=== PATIENT | male | born 1955 | race Hispanic/Latino ===

== ENCOUNTER 2019-05-17 10:07 | Emergency (ER) | payer OTHER ==
[2019-05-17 10:42] LABS: BASOPHILS % (AUTO) 0.3 % (0.0-5.0); EOSINOPHILS % (AUTO) 0.4 % (0.0-8.0); HEMATOCRIT 44.1 % (42-54); LYMPHOCYTES % (AUTO) 13.1 % (21.0-51.0); MEAN CORPUSCULAR HEMOGLOBIN 32.2 pg (27.0-33.0); MEAN CORPUSCULAR HGB CONC 34.9 g/dL (32.0-36.0); MEAN CORPUSCULAR VOLUME 92.3 fL (79-99); MONOCYTES % (AUTO) 4.1 % (3.0-13.0); NEUTROPHILS % (AUTO) 82.1 % (40.0-77.0); NUCLEATED RED BLOOD CELLS 0.1 % (0.0-0.19); PLATELET COUNT (AUTO) 207 K/uL (130-400); RED BLOOD CELL COUNT(AUTO) 4.78 MIL/uL (4.50-6.20); RED CELL DISTRIBUTION WIDTH 13.2 % (11.0-15.5); WHITE BLOOD COUNT (AUTO) 10.9 K/uL (4.8-10.8)
[2019-05-17] MEDS ORDERED: DiphenhydrAMINE HCL 50 MG/ML VIAL ONE (10:42)
[2019-05-17] MEDS ORDERED: DEXAMETHASONE SOD PHOSPHATE 10MG/ML 1ML VIAL ONE (10:43)
[2019-05-17] MEDS ORDERED: FAMOTIDINE/PF 20 MG/2 ML VIAL IV ONE (10:43)
[2019-05-17 10:51] LABS: POTASSIUM 4.3 mmol/L (3.5-5.1)
[2019-05-17 10:56] LABS: ALBUMIN 3.3 g/dL (3.5-5.0); BILIRUBIN,TOTAL 0.6 mg/dL (0.2-1.0); TOTAL PROTEIN, SERUM 6.3 g/dL (6.0-8.3)
== END 2019-05-17 13:04 | disposition home or self-care (01) ==
LOC: EDH 10:07
DX: T63.441A Toxic effect of venom of bees, accidental (unintentional), initial encounter (principal); T78.40XA Allergy, unspecified, initial encounter; Y92.89 Other specified places as the place of occurrence of the external cause
CPT/HCPCS: 36415; 80053; 85025; 96374; 96375; 99284; J1100; J1200; J3490

== ENCOUNTER 2020-11-04 10:45 | Inpatient (IN) | payer OTHER ==
[~2020-11-04] VITALS: Ht 177.8 cm; Wt 77.1 kg
[2020-11-04 11:16] LABS: BASOPHILS % (AUTO) 0.5 % (0.0-5.0); EOSINOPHILS % (AUTO) 2.6 % (0.0-8.0); HEMATOCRIT 39.8 % (42-54); LYMPHOCYTES % (AUTO) 18.6 % (21.0-51.0); MEAN CORPUSCULAR HEMOGLOBIN 25.2 pg (27.0-33.0); MEAN CORPUSCULAR HGB CONC 31.4 g/dL (32.0-36.0); MEAN CORPUSCULAR VOLUME 80.2 fL (79-99); MONOCYTES % (AUTO) 8.1 % (3.0-13.0); NEUTROPHILS % (AUTO) 69.9 % (40.0-77.0); PLATELET COUNT (AUTO) 281 K/uL (130-400); RED BLOOD CELL COUNT(AUTO) 4.96 MIL/uL (4.50-6.20); RED CELL DISTRIBUTION WIDTH 17.4 % (11.0-15.5); WHITE BLOOD COUNT (AUTO) 9.2 K/uL (4.8-10.8)
[2020-11-04 11:34] LABS: ALBUMIN 3.4 g/dL (3.5-5.0); BILIRUBIN,TOTAL 0.6 mg/dL (0.2-1.0)
[2020-11-04 12:11] LABS: INR 1.07 (0.85-1.15); PROTHROMBIN TIME 11.6 SEC (9.6-11.6)
[2020-11-04 12:12] LABS: PARTIAL THROMBOPLASTIN TIME 28.9 SEC (26.3-35.5)
[2020-11-04] MEDS ORDERED: ONDANSETRON 4MG INJ IVP PRN (14:30)
[2020-11-04] MEDS ORDERED: GLUCAGON 1MG KIT 1 MG ML IM PRN (17:15)
[2020-11-04] MEDS ORDERED: DEXTROSE 50%-WATER 50 ML DISP.SYRIN IV PRN (17:15)
[2020-11-04] MEDS: ZOSYN 3.375GM+NS 50ML 50 ML IV SCH (17:15)
[2020-11-04 17:27] LABS: APPEARANCE,URINE Clear (CLEAR); BILIRUBIN,URINE Negative (NEGATIVE); COLOR,URINE Yellow (YELLOW); GLUCOSE, URINE (UA) >=1000 mg/dL (NEGATIVE); KETONES,URINE Trace mg/dL (NEGATIVE); LEUKOCYTE ESTERASE ,URINE Negative (NEGATIVE); NITRATE,URINE Negative (NEGATIVE); OCCULT BLOOD,URINE Negative (NEGATIVE); PH,URINE 6.5 (5.0-8.0); PROTEIN,URINE Trace mg/dL (NEGATIVE)
[2020-11-04 17:56] LABS: BACTERIA,URINE None Seen /HPF (None Seen); SQUAMOUS EPITHELIAL CELL,UR 0-2 /HPF (0-2); WBC,URINE 0-1 /HPF (0-1)
[2020-11-04 17:58] LABS: BASOPHILS % (AUTO) 0.6 % (0.0-5.0); EOSINOPHILS % (AUTO) 3.9 % (0.0-8.0); HEMATOCRIT 38.9 % (42-54); LYMPHOCYTES % (AUTO) 24.5 % (21.0-51.0); MEAN CORPUSCULAR HEMOGLOBIN 25.2 pg (27.0-33.0); MEAN CORPUSCULAR HGB CONC 31.4 g/dL (32.0-36.0); MEAN CORPUSCULAR VOLUME 80.2 fL (79-99); MONOCYTES % (AUTO) 11.2 % (3.0-13.0); NEUTROPHILS % (AUTO) 59.5 % (40.0-77.0); PLATELET COUNT (AUTO) 268 K/uL (130-400); RED BLOOD CELL COUNT(AUTO) 4.85 MIL/uL (4.50-6.20); RED CELL DISTRIBUTION WIDTH 17.2 % (11.0-15.5); WHITE BLOOD COUNT (AUTO) 7.2 K/uL (4.8-10.8)
[2020-11-04 18:06] LABS: INR 1.09 (0.85-1.15); PROTHROMBIN TIME 11.8 SEC (9.6-11.6)
[2020-11-04 18:07] LABS: PARTIAL THROMBOPLASTIN TIME 29.3 SEC (26.3-35.5)
[2020-11-04] MEDS ORDERED: ZOSYN 3.375GM+NS 50ML 50 ML IV ONE (19:11)
[2020-11-04] MEDS ORDERED: HEPARIN 25,000 UNITS/250ML D5W 250 ML IV ONE (21:34)
[2020-11-04] MEDS ORDERED: HEPARIN 5,000 UNIT VIAL ONE (21:46)
[2020-11-05] VITALS: BP 115/66
[2020-11-05] MEDS: FAMOTIDINE 20MG TAB PO SCH ×3 (00:11→20:45)
[2020-11-05] MEDS: INSULIN HUMULIN R 100 UNIT/ML 3ML SQ SCH ×6 (00:15→20:55)
[2020-11-05] MEDS: ZOSYN 3.375GM+NS 50ML 50 ML IV SCH ×3 (01:09→18:05)
[2020-11-05 04:00] VITALS: BP 113/66
[2020-11-05 04:17] LABS: BASOPHILS % (AUTO) 0.6 % (0.0-5.0); EOSINOPHILS % (AUTO) 4.2 % (0.0-8.0); HEMATOCRIT 37.3 % (42-54); LYMPHOCYTES % (AUTO) 26.3 % (21.0-51.0); MEAN CORPUSCULAR HEMOGLOBIN 25.2 pg (27.0-33.0); MEAN CORPUSCULAR HGB CONC 31.6 g/dL (32.0-36.0); MEAN CORPUSCULAR VOLUME 79.5 fL (79-99); MONOCYTES % (AUTO) 11.2 % (3.0-13.0); NEUTROPHILS % (AUTO) 57.4 % (40.0-77.0); PLATELET COUNT (AUTO) 262 K/uL (130-400); RED BLOOD CELL COUNT(AUTO) 4.69 MIL/uL (4.50-6.20); RED CELL DISTRIBUTION WIDTH 17.3 % (11.0-15.5); WHITE BLOOD COUNT (AUTO) 7.8 K/uL (4.8-10.8)
[2020-11-05] MEDS ORDERED: METO-408 PO (04:24)
[2020-11-05] MEDS ORDERED: LISI2.5T13 PO (04:33)
[2020-11-05] MEDS ORDERED: GLIP10TA9 PO (04:33)
[2020-11-05] MEDS ORDERED: FAMO20TA8 PO (04:33)
[2020-11-05] MEDS ORDERED: AMIO100T4 PO (04:33)
[2020-11-05] MEDS ORDERED: FURO20TA4 PO (04:33)
[2020-11-05] MEDS ORDERED: METF-446 PO (04:33)
[2020-11-05] MEDS ORDERED: EMPA25TA PO (04:33)
[2020-11-05] MEDS ORDERED: ATOR40TA71 PO (04:33)
[2020-11-05] MEDS ORDERED: ASPI-1026 PO (04:33)
[2020-11-05] MEDS ORDERED: ASCO500T20 PO (04:33)
[2020-11-05 04:35] LABS: INR 1.1 (0.85-1.15); PROTHROMBIN TIME 11.9 SEC (9.6-11.6)
[2020-11-05 04:36] LABS: PARTIAL THROMBOPLASTIN TIME 71.2 SEC (26.3-35.5)
[2020-11-05 09:04] VITALS: BP 119/61
[2020-11-05] MEDS: ASPIRIN 325MG EC TAB PO SCH (10:18)
[2020-11-05 11:50] LABS: INR 1.07 (0.85-1.15); PROTHROMBIN TIME 11.6 SEC (9.6-11.6)
[2020-11-05 13:06] VITALS: BP 123/67
[2020-11-05] MEDS: HEPARIN 25,000 UNITS/250ML D5W 250 ML IV SCH ×2 (16:44→18:05)
[2020-11-05 17:48] VITALS: BP 112/65
[2020-11-05 20:00] VITALS: BP 96/43
[2020-11-06] VITALS (8 sets, daily range): BP systolic 96–120; BP diastolic 54–73
[2020-11-06 00:21] LABS: INR 1.07 (0.85-1.15); PROTHROMBIN TIME 11.6 SEC (9.6-11.6)
[2020-11-06 00:22] LABS: PARTIAL THROMBOPLASTIN TIME 56.3 SEC (26.3-35.5)
[2020-11-06] MEDS: ZOSYN 3.375GM+NS 50ML 50 ML IV SCH ×3 (01:27→16:36)
[2020-11-06 06:55] LABS: INR 1.08 (0.85-1.15); PROTHROMBIN TIME 11.7 SEC (9.6-11.6)
[2020-11-06 06:57] LABS: PARTIAL THROMBOPLASTIN TIME 66.5 SEC (26.3-35.5)
[2020-11-06] MEDS: INSULIN HUMULIN R 100 UNIT/ML 3ML SQ SCH ×4 (07:30→21:00)
[2020-11-06] MEDS: FAMOTIDINE 20MG TAB PO SCH ×2 (08:43→22:32)
[2020-11-06] MEDS: ASPIRIN 325MG EC TAB PO SCH (08:44)
[2020-11-06] MEDS: 0.9%NACL 1000ML 1,000 ML IV SCH ×2 (12:25→22:29)
[2020-11-06] MEDS: HEPARIN 25,000 UNITS/250ML D5W 250 ML IV SCH (13:01)
[2020-11-07 04:30] VITALS: BP 129/66
[2020-11-07 04:51] LABS: BASOPHILS % (AUTO) 0.4 % (0.0-5.0); EOSINOPHILS % (AUTO) 3.5 % (0.0-8.0); LYMPHOCYTES % (AUTO) 24.9 % (21.0-51.0); MEAN CORPUSCULAR HEMOGLOBIN 24.7 pg (27.0-33.0); MEAN CORPUSCULAR HGB CONC 31.7 g/dL (32.0-36.0); MEAN CORPUSCULAR VOLUME 77.8 fL (79-99); MONOCYTES % (AUTO) 10.6 % (3.0-13.0); NEUTROPHILS % (AUTO) 60.2 % (40.0-77.0); PLATELET COUNT (AUTO) 269 K/uL (130-400); RED CELL DISTRIBUTION WIDTH 16.8 % (11.0-15.5); WHITE BLOOD COUNT (AUTO) 7.6 K/uL (4.8-10.8)
[2020-11-07 05:08] LABS: CREATININE 0.9 mg/dL (0.5-1.5); POTASSIUM 4.4 mmol/L (3.5-5.1)
[2020-11-07 05:09] LABS: HEMOGLOBIN A1C 9.5 % (4.0-6.0)
[2020-11-07 05:27] LABS: INR 1.08 (0.85-1.15); PROTHROMBIN TIME 11.7 SEC (9.6-11.6)
[2020-11-07 05:29] LABS: PARTIAL THROMBOPLASTIN TIME 49.1 SEC (26.3-35.5)
[2020-11-07] MEDS: INSULIN HUMULIN R 100 UNIT/ML 3ML SQ SCH ×4 (07:30→22:58)
[2020-11-07] MEDS: ZOSYN 3.375GM+NS 50ML 50 ML IV SCH ×3 (07:54→18:12)
[2020-11-07] MEDS ORDERED: SODIUM BICARB 50MEQ 50ML VIAL 50 ML ONE (08:02)
[2020-11-07] MEDS ORDERED: HEPARIN 10,000 UNIT/10ML (1,000 UNIT/ML) VIAL ONE (08:02)
[2020-11-07] MEDS ORDERED: IODIXANOL 320 MG/ML 100 ML VIAL ONE ×2 (08:03→09:25)
[2020-11-07] MEDS ORDERED: LIDOCAINE HCL 400MG/20ML VIAL ONE (08:03)
[2020-11-07 08:39] VITALS: BP 138/65
[2020-11-07] MEDS ORDERED: NITROGLYCERIN 2 MG VIAL IV ONE (09:11)
[2020-11-07] MEDS ORDERED: FENTANYL CITRATE PF 50 MCG/1 ML 2ML VIAL ONE (09:11)
[2020-11-07] MEDS ORDERED: MIDAZOLAM HCL 1 MG/ML 2ML VIAL ONE (09:11)
[2020-11-07] MEDS ORDERED: PRASUGREL HCL 10 MG TABLET ONE (10:09)
[2020-11-07] MEDS ORDERED: 0.9%NACL 1000ML 1,000 ML IV SCH (11:15)
[2020-11-07] MEDS: 0.9%NACL 1000ML 1,000 ML IV SCH ×2 (12:11→16:00)
[2020-11-07] MEDS: FAMOTIDINE 20MG TAB PO SCH ×2 (12:28→22:51)
[2020-11-07] MEDS: MORPHINE 4 MG SYG IV PRN ×2 (12:40→18:12)
[2020-11-07] MEDS: LISINOPRIL 2.5 MG TABLET PO SCH (16:15)
[2020-11-07 16:30] VITALS: BP 100/65
[2020-11-07] MEDS ORDERED: ATORVASTATIN 40 MG TABLET PO SCH (17:00)
[2020-11-07] MEDS: GLIPIZIDE 5 MG TABLET PO SCH (17:00)
[2020-11-07] MEDS: AMIODARONE 200 MG TABLET PO SCH (18:12)
[2020-11-07] MEDS ORDERED: ASPIRIN 81MG CHEW TAB PO SCH (18:15)
[2020-11-07 19:00] VITALS: BP 129/71
[2020-11-07] MEDS: ACETAMINOPHEN 325 MG TAB PO PRN (22:52)
[2020-11-07] MEDS: METOPROLOL SUCCINATE 50 MG TAB.SR.24H PO SCH (22:52)
[2020-11-08 00:11] VITALS: BP 113/58
[2020-11-08] MEDS: ZOSYN 3.375GM+NS 50ML 50 ML IV SCH ×2 (02:09→09:34)
[2020-11-08] MEDS: 0.9%NACL 1000ML 1,000 ML IV SCH ×2 (02:09→12:00)
[2020-11-08 04:00] VITALS: BP 110/64
[2020-11-08 05:47] LABS: BASOPHILS % (AUTO) 0.3 % (0.0-5.0); EOSINOPHILS % (AUTO) 3.8 % (0.0-8.0); LYMPHOCYTES % (AUTO) 20.3 % (21.0-51.0); MEAN CORPUSCULAR HEMOGLOBIN 25.6 pg (27.0-33.0); MEAN CORPUSCULAR HGB CONC 31.8 g/dL (32.0-36.0); MEAN CORPUSCULAR VOLUME 80.6 fL (79-99); MONOCYTES % (AUTO) 13.6 % (3.0-13.0); NEUTROPHILS % (AUTO) 61.6 % (40.0-77.0); PLATELET COUNT (AUTO) 246 K/uL (130-400); RED BLOOD CELL COUNT(AUTO) 4.22 MIL/uL (4.50-6.20); WHITE BLOOD COUNT (AUTO) 7.7 K/uL (4.8-10.8)
[2020-11-08 05:54] LABS: POTASSIUM 3.7 mmol/L (3.5-5.1)
[2020-11-08] MEDS: INSULIN HUMULIN R 100 UNIT/ML 3ML SQ SCH ×2 (07:03→11:30)
[2020-11-08 08:00] VITALS: BP 100/54
[2020-11-08] MEDS: FAMOTIDINE 20MG TAB PO SCH (08:47)
[2020-11-08] MEDS: GLIPIZIDE 5 MG TABLET PO SCH (08:48)
[2020-11-08] MEDS: AMIODARONE 200 MG TABLET PO SCH (08:51)
[2020-11-08] MEDS ORDERED: ASPIRIN 81MG CHEW TAB PO SCH (09:00)
[2020-11-08] MEDS ORDERED: PRASUGREL HCL 10 MG TABLET PO SCH (09:00)
[2020-11-08] MEDS ORDERED: ASCORBIC ACID 500 MG TAB PO SCH (09:00)
[2020-11-08] MEDS: LISINOPRIL 2.5 MG TABLET PO SCH (09:00)
[2020-11-08] MEDS ORDERED: EMPAGLIFLOZIN 25 MG PO SCH (09:00)
[2020-11-08] MEDS ORDERED: FUROSEMIDE 20 MG TABLET PO SCH (09:00)
[2020-11-08] MEDS: METOPROLOL SUCCINATE 50 MG TAB.SR.24H PO SCH (09:55)
[2020-11-08 12:00] VITALS: BP 120/63
[2020-11-08] MEDS ORDERED: PRAS10TA6 PO (15:05)
[2020-11-08] MEDS ORDERED: ASPI-1197 PO (15:05)
[2020-11-08] MEDS: ACETAMINOPHEN 325 MG TAB PO PRN (15:06)
[2021-01-14] MEDS ORDERED: METO25TA6 PO (15:40)
[2021-01-14] MEDS ORDERED: ATOR-2 PO (15:43)
[2021-01-14] MEDS ORDERED: AMIO200T68 PO (15:43)
[2021-01-14] MEDS ORDERED: INSU100V12 SQ (15:43)
[2021-01-14] MEDS ORDERED: FURO40TA5 PO (15:43)
[2021-02-10] MEDS ORDERED: FURO40TA5 PO (16:48)
[2021-02-10] MEDS ORDERED: FAMO20TA8 PO (16:48)
[2021-02-10] MEDS ORDERED: GLIP10TA9 PO (16:48)
[2021-02-10] MEDS ORDERED: METO25TA6 PO (16:48)
[2021-02-10] MEDS ORDERED: PRAS10TA9 PO (16:48)
[2021-02-10] MEDS ORDERED: FLUT15.845 NS (16:48)
[2021-02-10] MEDS ORDERED: LISI2.5T13 PO (16:48)
[2021-02-10] MEDS ORDERED: AEC81 PO (16:48)
[2021-02-10] MEDS ORDERED: ASCO100031 PO (16:48)
[2021-02-10] MEDS ORDERED: ATOR40TA69 PO (16:48)
[2021-02-10] MEDS ORDERED: INSU100V12 SQ (16:48)
[2021-02-10] MEDS ORDERED: EMPA25TA PO (16:48)
[2021-02-10] MEDS ORDERED: METF-446 PO (16:48)
[2021-02-10] MEDS ORDERED: ALBUTEROL INHALER (16:48)
[2021-02-10] MEDS ORDERED: AMIO200T68 PO (16:48)
[2021-04-10] MEDS ORDERED: METF-446 PO (14:20)
[2021-04-10] MEDS ORDERED: INSU100V12 SQ (14:20)
== END 2020-11-08 16:00 | disposition home or self-care (01) | DRG 271 ==
LOC: EDH 10:45 → EDHIP 14:17 → 4BH 22:07
PROVIDERS: ADMIT Family Medicine; ATTEND Family Medicine
PROC: 04CL3ZZ Extirpation of Matter from Left Femoral Artery, Percutaneous Approach (ICD-10-PCS; principal; 2020-11-07)
PROC: 04FL3ZZ Fragmentation of Left Femoral Artery, Percutaneous Approach (ICD-10-PCS; 2020-11-07)
PROC: B41G1ZZ Fluoroscopy of Left Lower Extremity Arteries using Low Osmolar Contrast (ICD-10-PCS; 2020-11-07)
DX: E11.52 Type 2 diabetes mellitus with diabetic peripheral angiopathy with gangrene (principal); I70.262 Atherosclerosis of native arteries of extremities with gangrene, left leg; I50.22 Chronic systolic (congestive) heart failure; I96 Gangrene, not elsewhere classified; E11.65 Type 2 diabetes mellitus with hyperglycemia; D63.8 Anemia in other chronic diseases classified elsewhere; E11.42 Type 2 diabetes mellitus with diabetic polyneuropathy; I25.10 Atherosclerotic heart disease of native coronary artery without angina pectoris; M77.32 Calcaneal spur, left foot; L97.529 Non-pressure chronic ulcer of other part of left foot with unspecified severity; L50.9 Urticaria, unspecified; E78.5 Hyperlipidemia, unspecified; I25.5 Ischemic cardiomyopathy; E11.621 Type 2 diabetes mellitus with foot ulcer; E11.36 Type 2 diabetes mellitus with diabetic cataract; H26.9 Unspecified cataract; I65.29 Occlusion and stenosis of unspecified carotid artery; M48.00 Spinal stenosis, site unspecified; N52.9 Male erectile dysfunction, unspecified; R70.0 Elevated erythrocyte sedimentation rate; R79.82 Elevated C-reactive protein (CRP); I99.8 Other disorder of circulatory system; F17.200 Nicotine dependence, unspecified, uncomplicated; Z95.1 Presence of aortocoronary bypass graft; Z86.74 Personal history of sudden cardiac arrest; Z86.010 Personal history of colon polyps; Z20.822 Contact with and (suspected) exposure to COVID-19
CPT/HCPCS: 36415; 73620; 75710; 75716; 80048; 80053; 81001; 82550; 82948; 83036; 83605; 84145; 85025; 85347; 85610; 85651; 85730; 86140; 87040; 87426; 93925; 99156; 99157; C1769; C1893; C1894; C9764; G0378; J1644; J1815; J2250; J2270; J2543; J3010; J3490; J7030; Q9967; U0003

== ENCOUNTER 2020-11-10 15:49 | Inpatient (IN) | payer OTHER ==
[~2020-11-10] VITALS: Ht 175.3 cm; Wt 76.7 kg
[~2020-11-10 15:49] MED LIST: AMIO100T4 PO; ASCO500T20 PO; ASPI-1197 PO; ATOR40TA71 PO; EMPA25TA PO; FAMO20TA8 PO; FURO20TA4 PO; GLIP10TA9 PO; LISI2.5T13 PO; METF-446 PO; METO-408 PO; PRAS10TA6 PO
[2020-11-10 16:32] LABS: BASOPHILS % (AUTO) 0.3 % (0.0-5.0); EOSINOPHILS % (AUTO) 1.6 % (0.0-8.0); HEMATOCRIT 33.7 % (42-54); LYMPHOCYTES % (AUTO) 14.9 % (21.0-51.0); MEAN CORPUSCULAR HEMOGLOBIN 25.6 pg (27.0-33.0); MEAN CORPUSCULAR HGB CONC 31.5 g/dL (32.0-36.0); MEAN CORPUSCULAR VOLUME 81.4 fL (79-99); MONOCYTES % (AUTO) 7.8 % (3.0-13.0); NEUTROPHILS % (AUTO) 75.3 % (40.0-77.0); PLATELET COUNT (AUTO) 291 K/uL (130-400); RED BLOOD CELL COUNT(AUTO) 4.14 MIL/uL (4.50-6.20); RED CELL DISTRIBUTION WIDTH 17.2 % (11.0-15.5); WHITE BLOOD COUNT (AUTO) 9.2 K/uL (4.8-10.8)
[2020-11-10 16:43] LABS: CREATININE 1.2 mg/dL (0.5-1.5); POTASSIUM 3.7 mmol/L (3.5-5.1)
[2020-11-10 16:48] LABS: ALBUMIN 3.1 g/dL (3.5-5.0); BILIRUBIN,TOTAL 0.3 mg/dL (0.2-1.0); TOTAL PROTEIN, SERUM 7.6 g/dL (6.0-8.3)
[2020-11-10 17:11] LABS: INR 1.08 (0.85-1.15); PROTHROMBIN TIME 11.7 SEC (9.6-11.6)
[2020-11-10 17:12] LABS: PARTIAL THROMBOPLASTIN TIME 29.1 SEC (26.3-35.5)
[2020-11-10 17:27] LABS: APPEARANCE,URINE Clear (CLEAR); BILIRUBIN,URINE Negative (NEGATIVE); COLOR,URINE Yellow (YELLOW); GLUCOSE, URINE (UA) >=1000 mg/dL (NEGATIVE); KETONES,URINE Negative (NEGATIVE); LEUKOCYTE ESTERASE ,URINE Negative (NEGATIVE); NITRATE,URINE Negative (NEGATIVE); OCCULT BLOOD,URINE Negative (NEGATIVE); PH,URINE 5.5 (5.0-8.0); PROTEIN,URINE Negative (NEGATIVE); UROBILINOGEN,URINE 0.2 mg/dL (0.2-1.0)
[2020-11-10 17:28] LABS: B-TYPE NATRIURETIC PEPTIDE 790 pg/mL (0-100)
[2020-11-10 17:35] LABS: AMPHET/METH SCREEN,URINE NEGATIVE (NEGATIVE); BARBITURATE SCREEN, URINE NEGATIVE (NEGATIVE); BENZODIAZEPINES SCREEN,URINE NEGATIVE (NEGATIVE); CANNABINOID SCREEN,URINE NEGATIVE (NEGATIVE); COCAINE SCREEN,URINE NEGATIVE (NEGATIVE); OPIATE SCREEN,URINE NEGATIVE (NEGATIVE); PHENCYCLIDINE SCREEN,URINE NEGATIVE (NEGATIVE)
[2020-11-10 17:39] LABS: CRP QUANTITATIVE 116.7 mg/L (0.00-9.0)
[2020-11-10 17:57] LABS: BACTERIA,URINE Rare /HPF (None Seen); RBC,URINE 0-1 /HPF (0-1); SQUAMOUS EPITHELIAL CELL,UR Rare /HPF (0-2); WBC,URINE 0-1 /HPF (0-1)
[2020-11-10 17:59] LABS: ERYTHROCYTE SEDIMENTATION RATE 73 MM/HR (0-20)
[2020-11-10] MEDS ORDERED: ACETAMINOPHEN WITH CODEINE 1 TAB TAB PO PRN (19:15)
[2020-11-10] MEDS ORDERED: LACTULOSE 20 GM/30 ML UDCUP PO PRN (19:15)
[2020-11-10] MEDS ORDERED: ACETAMINOPHEN 325 MG TAB PO PRN (19:15)
[2020-11-10] MEDS ORDERED: ONDANSETRON 4MG INJ IV PRN (19:15)
[2020-11-10 19:34] LABS: RETICULOCYTE % (AUTO) 1.41 % (0.42-2.23)
[2020-11-10 19:56] LABS: % IRON SATURATION 5.3 % (30-44)
[2020-11-10 20:01] LABS: HEMOGLOBIN A1C 10.2 % (4.0-6.0)
[2020-11-10 20:49] LABS: BASOPHILS % (AUTO) 0.5 % (0.0-5.0); EOSINOPHILS % (AUTO) 2.9 % (0.0-8.0); HEMATOCRIT 33.6 % (42-54); LYMPHOCYTES % (AUTO) 18.6 % (21.0-51.0); MEAN CORPUSCULAR HEMOGLOBIN 25.7 pg (27.0-33.0); MEAN CORPUSCULAR HGB CONC 31.8 g/dL (32.0-36.0); MEAN CORPUSCULAR VOLUME 80.8 fL (79-99); MONOCYTES % (AUTO) 10.4 % (3.0-13.0); NEUTROPHILS % (AUTO) 67.4 % (40.0-77.0); PLATELET COUNT (AUTO) 290 K/uL (130-400); RED BLOOD CELL COUNT(AUTO) 4.16 MIL/uL (4.50-6.20); RED CELL DISTRIBUTION WIDTH 17.2 % (11.0-15.5); WHITE BLOOD COUNT (AUTO) 8.7 K/uL (4.8-10.8)
[2020-11-10] MEDS: INSULIN GLARGINE 100 UNITS/ML 10 ML VIAL SQ SCH (21:00)
[2020-11-10] MEDS: ATORVASTATIN 40 MG TABLET PO SCH (21:00)
[2020-11-10] MEDS: METOPROLOL SUCCINATE 50 MG TAB.SR.24H PO SCH (21:00)
[2020-11-10] MEDS: FAMOTIDINE 20MG TAB PO SCH (21:00)
[2020-11-10] MEDS: INSULIN HUMULIN R 100 UNIT/ML 3ML SQ SCH (21:00)
[2020-11-10] MEDS ORDERED: ATORVASTATIN 40 MG TABLET ONE (21:28)
[2020-11-10] MEDS ORDERED: FAMOTIDINE 20MG TAB ONE (21:58)
[2020-11-10] MEDS ORDERED: HEPARIN 5,000 UNIT VIAL ONE (21:59)
[2020-11-10] MEDS ORDERED: INSULIN HUMULIN R 100 UNIT/ML 3ML ONE (22:18)
[2020-11-10 22:28] VITALS: BP 128/45
[2020-11-11] MEDS: ACETAMINOPHEN 325 MG TAB PO PRN ×4 (03:47→21:24)
[2020-11-11 04:00] VITALS: BP 117/58
[2020-11-11 05:24] LABS: BASOPHILS % (AUTO) 0.5 % (0.0-5.0); EOSINOPHILS % (AUTO) 3.2 % (0.0-8.0); HEMATOCRIT 29.7 % (42-54); LYMPHOCYTES % (AUTO) 24.8 % (21.0-51.0); MEAN CORPUSCULAR HEMOGLOBIN 25.5 pg (27.0-33.0); MEAN CORPUSCULAR VOLUME 79.6 fL (79-99); MONOCYTES % (AUTO) 10.4 % (3.0-13.0); NEUTROPHILS % (AUTO) 60.8 % (40.0-77.0); PLATELET COUNT (AUTO) 270 K/uL (130-400); RED BLOOD CELL COUNT(AUTO) 3.73 MIL/uL (4.50-6.20); RED CELL DISTRIBUTION WIDTH 17.1 % (11.0-15.5); WHITE BLOOD COUNT (AUTO) 7.8 K/uL (4.8-10.8)
[2020-11-11] MEDS: INSULIN HUMULIN R 100 UNIT/ML 3ML SQ SCH ×4 (05:53→20:26)
[2020-11-11 08:00] VITALS: BP 87/54
[2020-11-11] MEDS: FAMOTIDINE 20MG TAB PO SCH ×2 (08:54→20:26)
[2020-11-11] MEDS: ASPIRIN 81MG CHEW TAB PO SCH (08:54)
[2020-11-11] MEDS: PRASUGREL HCL 10 MG TABLET PO SCH (08:54)
[2020-11-11] MEDS: ASCORBIC ACID 500 MG TAB PO SCH (08:55)
[2020-11-11] MEDS: LISINOPRIL 2.5 MG TABLET PO SCH (09:00)
[2020-11-11] MEDS: FUROSEMIDE 20 MG TABLET PO SCH (09:00)
[2020-11-11] MEDS: AMIODARONE 200 MG TABLET PO SCH (09:00)
[2020-11-11] MEDS: METOPROLOL SUCCINATE 50 MG TAB.SR.24H PO SCH ×2 (09:00→20:25)
[2020-11-11] MEDS ORDERED: ENOXAPARIN SODIUM 40 MG/0.4 ML SYRINGE SQ SCH (09:00)
[2020-11-11 12:00] VITALS: BP 108/61
[2020-11-11 16:00] VITALS: BP 115/58
[2020-11-11] MEDS ORDERED: HEPARIN 5,000 UNIT VIAL ONE (17:53)
[2020-11-11] MEDS: HEPARIN 25,000 UNITS/250ML D5W 250 ML IV SCH (18:04)
[2020-11-11 20:00] VITALS: BP 124/67
[2020-11-11] MEDS: ATORVASTATIN 40 MG TABLET PO SCH (20:26)
[2020-11-11] MEDS: INSULIN GLARGINE 100 UNITS/ML 10 ML VIAL SQ SCH (20:27)
[2020-11-11 23:54] VITALS: BP 118/61
[2020-11-12] MEDS ORDERED: HEPARIN 5,000 UNIT VIAL ONE (00:51)
[2020-11-12 04:00] VITALS: BP 129/67
[2020-11-12] MEDS: ACETAMINOPHEN 325 MG TAB PO PRN (04:13)
[2020-11-12] MEDS: INSULIN HUMULIN R 100 UNIT/ML 3ML SQ SCH ×4 (05:54→20:50)
[2020-11-12 07:00] VITALS: BP 123/59
[2020-11-12] MEDS: LISINOPRIL 2.5 MG TABLET PO SCH (09:35)
[2020-11-12] MEDS: AMIODARONE 200 MG TABLET PO SCH (09:35)
[2020-11-12] MEDS: ASPIRIN 81MG CHEW TAB PO SCH (09:35)
[2020-11-12] MEDS: METOPROLOL SUCCINATE 50 MG TAB.SR.24H PO SCH ×2 (09:36→20:42)
[2020-11-12] MEDS: ASCORBIC ACID 500 MG TAB PO SCH (09:36)
[2020-11-12] MEDS: FAMOTIDINE 20MG TAB PO SCH ×2 (09:36→20:41)
[2020-11-12] MEDS: FUROSEMIDE 20 MG TABLET PO SCH (09:36)
[2020-11-12] MEDS: PRASUGREL HCL 10 MG TABLET PO SCH (09:36)
[2020-11-12 11:30] VITALS: BP 112/61
[2020-11-12] MEDS: ACETAMINOPHEN WITH CODEINE 1 TAB TAB PO PRN ×2 (11:31→20:41)
[2020-11-12 16:00] VITALS: BP 90/50
[2020-11-12] MEDS: HEPARIN 25,000 UNITS/250ML D5W 250 ML IV SCH ×2 (18:30→20:23)
[2020-11-12 20:00] VITALS: BP 107/55
[2020-11-12] MEDS: ATORVASTATIN 40 MG TABLET PO SCH (20:41)
[2020-11-12] MEDS: INSULIN GLARGINE 100 UNITS/ML 10 ML VIAL SQ SCH (20:49)
[2020-11-12 23:51] VITALS: BP 102/53
[2020-11-13 04:45] VITALS: BP 97/47
[2020-11-13] MEDS: INSULIN HUMULIN R 100 UNIT/ML 3ML SQ SCH ×4 (06:08→20:04)
[2020-11-13 07:00] VITALS: BP 99/52
[2020-11-13] MEDS: ASPIRIN 81MG CHEW TAB PO SCH (08:47)
[2020-11-13] MEDS: METOPROLOL SUCCINATE 50 MG TAB.SR.24H PO SCH ×2 (08:48→20:00)
[2020-11-13] MEDS: FUROSEMIDE 20 MG TABLET PO SCH (08:48)
[2020-11-13] MEDS: PRASUGREL HCL 10 MG TABLET PO SCH (08:48)
[2020-11-13] MEDS: AMIODARONE 200 MG TABLET PO SCH (08:48)
[2020-11-13] MEDS: LISINOPRIL 2.5 MG TABLET PO SCH (08:48)
[2020-11-13] MEDS: FAMOTIDINE 20MG TAB PO SCH ×2 (08:48→20:00)
[2020-11-13] MEDS: ASCORBIC ACID 500 MG TAB PO SCH (08:49)
[2020-11-13 11:30] VITALS: BP 101/56
[2020-11-13] MEDS ORDERED: SODIUM BICARB 50MEQ 50ML VIAL 50 ML ONE (15:39)
[2020-11-13] MEDS ORDERED: HEPARIN 10,000 UNIT/10ML (1,000 UNIT/ML) VIAL ONE (15:39)
[2020-11-13] MEDS ORDERED: FENTANYL CITRATE PF 50 MCG/1 ML 2ML VIAL ONE (15:40)
[2020-11-13] MEDS ORDERED: MIDAZOLAM HCL 1 MG/ML 2ML VIAL ONE (15:40)
[2020-11-13] MEDS ORDERED: NITROGLYCERIN 2 MG VIAL IV ONE (15:40)
[2020-11-13] MEDS ORDERED: LIDOCAINE HCL 400MG/20ML VIAL ONE (15:40)
[2020-11-13] MEDS ORDERED: IODIXANOL 320 MG/ML 100 ML VIAL ONE (15:40)
[2020-11-13 16:00] VITALS: BP 111/59
[2020-11-13] MEDS ORDERED: 0.9%NACL 1000ML 1,000 ML IV SCH (18:00)
[2020-11-13 19:41] VITALS: BP 111/55
[2020-11-13] MEDS: ATORVASTATIN 40 MG TABLET PO SCH (20:00)
[2020-11-13] MEDS: INSULIN GLARGINE 100 UNITS/ML 10 ML VIAL SQ SCH (20:08)
[2020-11-14 00:15] VITALS: BP 130/60
[2020-11-14] MEDS: ACETAMINOPHEN WITH CODEINE 1 TAB TAB PO PRN ×2 (04:10→15:18)
[2020-11-14 04:27] VITALS: BP 116/57
[2020-11-14 05:11] LABS: BASOPHILS % (AUTO) 0.4 % (0.0-5.0); EOSINOPHILS % (AUTO) 2.6 % (0.0-8.0); HEMATOCRIT 28.9 % (42-54); LYMPHOCYTES % (AUTO) 18.4 % (21.0-51.0); MEAN CORPUSCULAR HEMOGLOBIN 25.8 pg (27.0-33.0); MEAN CORPUSCULAR HGB CONC 32.2 g/dL (32.0-36.0); MEAN CORPUSCULAR VOLUME 80.1 fL (79-99); MONOCYTES % (AUTO) 11.4 % (3.0-13.0); NEUTROPHILS % (AUTO) 67.1 % (40.0-77.0); PLATELET COUNT (AUTO) 267 K/uL (130-400); RED BLOOD CELL COUNT(AUTO) 3.61 MIL/uL (4.50-6.20); RED CELL DISTRIBUTION WIDTH 16.3 % (11.0-15.5); WHITE BLOOD COUNT (AUTO) 7.3 K/uL (4.8-10.8)
[2020-11-14 05:31] LABS: CREATININE 0.8 mg/dL (0.5-1.5)
[2020-11-14] MEDS: INSULIN HUMULIN R 100 UNIT/ML 3ML SQ SCH ×4 (06:02→20:51)
[2020-11-14 08:00] VITALS: BP 106/50
[2020-11-14] MEDS: ASPIRIN 81MG CHEW TAB PO SCH (09:18)
[2020-11-14] MEDS: PRASUGREL HCL 10 MG TABLET PO SCH (09:18)
[2020-11-14] MEDS: FUROSEMIDE 20 MG TABLET PO SCH (09:18)
[2020-11-14] MEDS: ASCORBIC ACID 500 MG TAB PO SCH (09:19)
[2020-11-14] MEDS: AMIODARONE 200 MG TABLET PO SCH (09:19)
[2020-11-14] MEDS: LISINOPRIL 2.5 MG TABLET PO SCH (09:19)
[2020-11-14] MEDS: FAMOTIDINE 20MG TAB PO SCH ×2 (09:19→19:55)
[2020-11-14] MEDS: METOPROLOL SUCCINATE 50 MG TAB.SR.24H PO SCH ×2 (09:19→19:55)
[2020-11-14 12:09] VITALS: BP 97/53
[2020-11-14 16:31] VITALS: BP 126/56
[2020-11-14 19:51] VITALS: BP 108/60
[2020-11-14] MEDS: ATORVASTATIN 40 MG TABLET PO SCH (19:55)
[2020-11-14] MEDS: ACETAMINOPHEN 325 MG TAB PO PRN (20:01)
[2020-11-14] MEDS: INSULIN GLARGINE 100 UNITS/ML 10 ML VIAL SQ SCH (20:52)
[2020-11-15] VITALS: BP 95/45
[2020-11-15 04:33] VITALS: BP 116/71
[2020-11-15] MEDS: INSULIN HUMULIN R 100 UNIT/ML 3ML SQ SCH ×4 (06:30→21:16)
[2020-11-15 08:00] VITALS: BP 123/50
[2020-11-15] MEDS: ASCORBIC ACID 500 MG TAB PO SCH (08:51)
[2020-11-15] MEDS: PRASUGREL HCL 10 MG TABLET PO SCH (08:51)
[2020-11-15] MEDS: ACETAMINOPHEN WITH CODEINE 1 TAB TAB PO PRN ×2 (08:51→21:14)
[2020-11-15] MEDS: AMIODARONE 200 MG TABLET PO SCH (08:51)
[2020-11-15] MEDS: ASPIRIN 81MG CHEW TAB PO SCH (08:51)
[2020-11-15] MEDS: METOPROLOL SUCCINATE 50 MG TAB.SR.24H PO SCH ×2 (08:51→20:59)
[2020-11-15] MEDS: LISINOPRIL 2.5 MG TABLET PO SCH (08:51)
[2020-11-15] MEDS: FAMOTIDINE 20MG TAB PO SCH ×2 (08:52→21:00)
[2020-11-15] MEDS: FUROSEMIDE 20 MG TABLET PO SCH (08:52)
[2020-11-15 12:00] VITALS: BP 112/62
[2020-11-15 16:00] VITALS: BP 109/56
[2020-11-15 20:08] VITALS: BP 115/60
[2020-11-15] MEDS: ATORVASTATIN 40 MG TABLET PO SCH (21:00)
[2020-11-15] MEDS: INSULIN GLARGINE 100 UNITS/ML 10 ML VIAL SQ SCH (21:15)
[2020-11-16] VITALS (7 sets, daily range): BP systolic 95–134; BP diastolic 50–63
[2020-11-16] MEDS: INSULIN HUMULIN R 100 UNIT/ML 3ML SQ SCH ×4 (05:30→20:43)
[2020-11-16 06:05] LABS: CREATININE 0.8 mg/dL (0.5-1.5)
[2020-11-16] MEDS: ACETAMINOPHEN WITH CODEINE 1 TAB TAB PO PRN (09:50)
[2020-11-16] MEDS: FUROSEMIDE 20 MG TABLET PO SCH (09:51)
[2020-11-16] MEDS: FAMOTIDINE 20MG TAB PO SCH ×2 (09:51→20:37)
[2020-11-16] MEDS: LISINOPRIL 2.5 MG TABLET PO SCH (09:51)
[2020-11-16] MEDS: ASCORBIC ACID 500 MG TAB PO SCH (09:51)
[2020-11-16] MEDS: AMIODARONE 200 MG TABLET PO SCH (09:52)
[2020-11-16] MEDS: ASPIRIN 81MG CHEW TAB PO SCH (09:52)
[2020-11-16] MEDS: PRASUGREL HCL 10 MG TABLET PO SCH (09:52)
[2020-11-16] MEDS: METOPROLOL SUCCINATE 50 MG TAB.SR.24H PO SCH ×2 (09:53→20:37)
[2020-11-16] MEDS: ATORVASTATIN 40 MG TABLET PO SCH (20:37)
[2020-11-16] MEDS: INSULIN GLARGINE 100 UNITS/ML 10 ML VIAL SQ SCH (20:42)
[2020-11-17] VITALS (24 sets, daily range): BP systolic 100–154; BP diastolic 52–65
[2020-11-17] MEDS: INSULIN HUMULIN R 100 UNIT/ML 3ML SQ SCH ×4 (05:14→20:20)
[2020-11-17 05:48] LABS: BASOPHILS % (AUTO) 0.4 % (0.0-5.0); EOSINOPHILS % (AUTO) 2.4 % (0.0-8.0); HEMATOCRIT 29.8 % (42-54); LYMPHOCYTES % (AUTO) 18.8 % (21.0-51.0); MEAN CORPUSCULAR HEMOGLOBIN 25.2 pg (27.0-33.0); MEAN CORPUSCULAR HGB CONC 31.9 g/dL (32.0-36.0); MONOCYTES % (AUTO) 12.8 % (3.0-13.0); NEUTROPHILS % (AUTO) 65.3 % (40.0-77.0); PLATELET COUNT (AUTO) 309 K/uL (130-400); RED BLOOD CELL COUNT(AUTO) 3.77 MIL/uL (4.50-6.20); RED CELL DISTRIBUTION WIDTH 16.4 % (11.0-15.5); WHITE BLOOD COUNT (AUTO) 7.9 K/uL (4.8-10.8)
[2020-11-17 06:05] LABS: CREATININE 0.9 mg/dL (0.5-1.5); MAGNESIUM 1.9 mg/dL (1.80-2.40); POTASSIUM 4.5 mmol/L (3.5-5.1)
[2020-11-17] MEDS: AMIODARONE 200 MG TABLET PO SCH (08:35)
[2020-11-17] MEDS: LISINOPRIL 2.5 MG TABLET PO SCH (08:35)
[2020-11-17] MEDS: METOPROLOL SUCCINATE 50 MG TAB.SR.24H PO SCH ×2 (08:35→20:20)
[2020-11-17] MEDS: ASCORBIC ACID 500 MG TAB PO SCH (09:00)
[2020-11-17] MEDS: ASPIRIN 81MG CHEW TAB PO SCH (09:00)
[2020-11-17] MEDS: FAMOTIDINE 20MG TAB PO SCH ×2 (09:00→20:15)
[2020-11-17] MEDS: FUROSEMIDE 20 MG TABLET PO SCH (09:00)
[2020-11-17] MEDS: PRASUGREL HCL 10 MG TABLET PO SCH (09:00)
[2020-11-17] MEDS ORDERED: 0.9%NACL 1000ML 1,000 ML IV ONE (12:25)
[2020-11-17] MEDS ORDERED: CEFAZOLIN SODIUM 1 GM VIAL ONE (12:42)
[2020-11-17] MEDS ORDERED: SUCCINYLCHOLINE 200MG/10ML SYR ONE (13:16)
[2020-11-17] MEDS ORDERED: LIDOCAINE PF 100MG/5ML (2%) SYRINGE 5ML ONE (13:16)
[2020-11-17] MEDS ORDERED: DEXAMETHASONE SOD PHOSPHATE 10MG/ML 1ML VIAL ONE (13:16)
[2020-11-17] MEDS ORDERED: LIDOCAINE HCL 1% 20 ML VIAL ONE (13:17)
[2020-11-17] MEDS ORDERED: PROPOFOL 10 MG/ML 20ML VIAL IV ONE (13:17)
[2020-11-17] MEDS ORDERED: ONDANSETRON 4MG INJ ONE (13:17)
[2020-11-17] MEDS ORDERED: MIDAZOLAM HCL 1 MG/ML 2ML VIAL ONE (13:17)
[2020-11-17] MEDS ORDERED: FENTANYL CITRATE PF 50 MCG/1 ML 2ML VIAL ONE (13:17)
[2020-11-17] MEDS ORDERED: BUPIVACAINE/PF 0.5% 30ML VIAL ONE (13:17)
[2020-11-17] MEDS ORDERED: MEPERIDINE-PF 25 MG/ML SYG ONE (13:18)
[2020-11-17] MEDS ORDERED: EPHEDRINE SULFATE 50 MG/ML AMPULE ONE (13:37)
[2020-11-17] MEDS: ATORVASTATIN 40 MG TABLET PO SCH (20:15)
[2020-11-17] MEDS: INSULIN GLARGINE 100 UNITS/ML 10 ML VIAL SQ SCH (20:19)
[2020-11-18 03:54] VITALS: BP 118/66
[2020-11-18 05:40] LABS: BASOPHILS % (AUTO) 0.1 % (0.0-5.0); HEMATOCRIT 29.2 % (42-54); LYMPHOCYTES % (AUTO) 7.9 % (21.0-51.0); MEAN CORPUSCULAR HEMOGLOBIN 25.5 pg (27.0-33.0); MEAN CORPUSCULAR HGB CONC 31.8 g/dL (32.0-36.0); NEUTROPHILS % (AUTO) 88.6 % (40.0-77.0); PLATELET COUNT (AUTO) 305 K/uL (130-400); RED BLOOD CELL COUNT(AUTO) 3.65 MIL/uL (4.50-6.20); RED CELL DISTRIBUTION WIDTH 16.2 % (11.0-15.5); WHITE BLOOD COUNT (AUTO) 9.6 K/uL (4.8-10.8)
[2020-11-18 05:54] LABS: ALBUMIN 2.5 g/dL (3.5-5.0); BILIRUBIN,TOTAL 0.5 mg/dL (0.2-1.0); CREATININE 0.9 mg/dL (0.5-1.5); POTASSIUM 4.7 mmol/L (3.5-5.1); TOTAL PROTEIN, SERUM 6.3 g/dL (6.0-8.3)
[2020-11-18] MEDS: INSULIN HUMULIN R 100 UNIT/ML 3ML SQ SCH ×4 (06:15→20:16)
[2020-11-18 07:43] VITALS: BP 123/64
[2020-11-18] MEDS: ACETAMINOPHEN WITH CODEINE 1 TAB TAB PO PRN ×2 (09:02→20:10)
[2020-11-18] MEDS: FAMOTIDINE 20MG TAB PO SCH ×2 (10:18→20:09)
[2020-11-18] MEDS: AMIODARONE 200 MG TABLET PO SCH (10:18)
[2020-11-18] MEDS: ASCORBIC ACID 500 MG TAB PO SCH (10:18)
[2020-11-18] MEDS: FUROSEMIDE 20 MG TABLET PO SCH (10:18)
[2020-11-18] MEDS: LISINOPRIL 2.5 MG TABLET PO SCH (10:18)
[2020-11-18] MEDS: PRASUGREL HCL 10 MG TABLET PO SCH (10:18)
[2020-11-18] MEDS: ASPIRIN 81MG CHEW TAB PO SCH (10:18)
[2020-11-18] MEDS: METOPROLOL SUCCINATE 50 MG TAB.SR.24H PO SCH ×2 (10:19→20:09)
[2020-11-18 11:08] VITALS: BP 115/65
[2020-11-18 16:18] VITALS: BP 110/59
[2020-11-18] MEDS: ATORVASTATIN 40 MG TABLET PO SCH (20:09)
[2020-11-18] MEDS: INSULIN GLARGINE 100 UNITS/ML 10 ML VIAL SQ SCH (20:14)
[2020-11-18 20:27] VITALS: BP 102/59
[2020-11-19 00:34] VITALS: BP 119/63
[2020-11-19 05:33] VITALS: BP 106/65
[2020-11-19] MEDS: INSULIN HUMULIN R 100 UNIT/ML 3ML SQ SCH ×2 (06:26→12:03)
[2020-11-19 07:54] VITALS: BP 103/66
[2020-11-19] MEDS: LISINOPRIL 2.5 MG TABLET PO SCH (09:00)
[2020-11-19] MEDS: METOPROLOL SUCCINATE 50 MG TAB.SR.24H PO SCH (09:00)
[2020-11-19] MEDS: ASPIRIN 81MG CHEW TAB PO SCH (10:28)
[2020-11-19] MEDS: ASCORBIC ACID 500 MG TAB PO SCH (10:28)
[2020-11-19] MEDS: FUROSEMIDE 20 MG TABLET PO SCH (10:28)
[2020-11-19] MEDS: PRASUGREL HCL 10 MG TABLET PO SCH (10:30)
[2020-11-19] MEDS: AMIODARONE 200 MG TABLET PO SCH (10:30)
[2020-11-19] MEDS: FAMOTIDINE 20MG TAB PO SCH (10:30)
[2020-11-19] MEDS: ACETAMINOPHEN WITH CODEINE 1 TAB TAB PO PRN (10:43)
[2020-11-19 11:59] VITALS: BP 123/60
[2021-01-14] MEDS ORDERED: METO25TA6 PO (15:40)
[2021-01-14] MEDS ORDERED: AMIO200T68 PO (15:43)
[2021-01-14] MEDS ORDERED: INSU100V12 SQ (15:43)
[2021-01-14] MEDS ORDERED: ATOR-2 PO (15:43)
[2021-01-14] MEDS ORDERED: FURO40TA5 PO (15:43)
[2021-02-10] MEDS ORDERED: PRAS10TA9 PO (16:48)
[2021-02-10] MEDS ORDERED: FLUT15.845 NS (16:48)
[2021-02-10] MEDS ORDERED: GLIP10TA9 PO (16:48)
[2021-02-10] MEDS ORDERED: ATOR40TA69 PO (16:48)
[2021-02-10] MEDS ORDERED: LISI2.5T13 PO (16:48)
[2021-02-10] MEDS ORDERED: FURO40TA5 PO (16:48)
[2021-02-10] MEDS ORDERED: METF-446 PO (16:48)
[2021-02-10] MEDS ORDERED: METO25TA6 PO (16:48)
[2021-02-10] MEDS ORDERED: EMPA25TA PO (16:48)
[2021-02-10] MEDS ORDERED: FAMO20TA8 PO (16:48)
[2021-02-10] MEDS ORDERED: ALBUTEROL INHALER (16:48)
[2021-02-10] MEDS ORDERED: INSU100V12 SQ (16:48)
[2021-02-10] MEDS ORDERED: ASCO100031 PO (16:48)
[2021-02-10] MEDS ORDERED: AEC81 PO (16:48)
[2021-02-10] MEDS ORDERED: AMIO200T68 PO (16:48)
[2021-04-10] MEDS ORDERED: METF-446 PO (14:20)
[2021-04-10] MEDS ORDERED: INSU100V12 SQ (14:20)
== END 2020-11-19 14:00 | disposition home or self-care (01) | DRG 240 ==
LOC: EDH 15:49 → EDHIP 19:09 → 3BH 21:34
PROVIDERS: ADMIT Internal Medicine; ATTEND Internal Medicine
PROC: B41GYZZ Fluoroscopy of Left Lower Extremity Arteries using Other Contrast (ICD-10-PCS; 2020-11-13)
PROC: 0Y6N0ZB Detachment at Left Foot, Partial 2nd Ray, Open Approach (ICD-10-PCS; 2020-11-17)
PROC: 0Y6N0ZC Detachment at Left Foot, Partial 3rd Ray, Open Approach (ICD-10-PCS; 2020-11-17)
PROC: 0Y6N0ZD Detachment at Left Foot, Partial 4th Ray, Open Approach (ICD-10-PCS; 2020-11-17)
PROC: 0Y6N0ZF Detachment at Left Foot, Partial 5th Ray, Open Approach (ICD-10-PCS; 2020-11-17)
PROC: 0Y6N0Z9 Detachment at Left Foot, Partial 1st Ray, Open Approach (ICD-10-PCS; principal; 2020-11-17 13:26)
DX: E11.52 Type 2 diabetes mellitus with diabetic peripheral angiopathy with gangrene (principal); I50.20 Unspecified systolic (congestive) heart failure; E11.65 Type 2 diabetes mellitus with hyperglycemia; E78.5 Hyperlipidemia, unspecified; F17.200 Nicotine dependence, unspecified, uncomplicated; E11.36 Type 2 diabetes mellitus with diabetic cataract; F17.210 Nicotine dependence, cigarettes, uncomplicated; H40.9 Unspecified glaucoma; I11.0 Hypertensive heart disease with heart failure; I25.10 Atherosclerotic heart disease of native coronary artery without angina pectoris; I25.5 Ischemic cardiomyopathy; I65.29 Occlusion and stenosis of unspecified carotid artery; M48.00 Spinal stenosis, site unspecified; Z79.02 Long term (current) use of antithrombotics/antiplatelets; I25.2 Old myocardial infarction; Z79.82 Long term (current) use of aspirin; Z79.84 Long term (current) use of oral hypoglycemic drugs; Z79.899 Other long term (current) drug therapy; Z87.19 Personal history of other diseases of the digestive system; Z91.19 Patient's noncompliance with other medical treatment and regimen; Z95.1 Presence of aortocoronary bypass graft
CPT/HCPCS: 36247; 36415; 71045; 73630; 75710; 80048; 80053; 80305; 81001; 82270; 82550; 82948; 83036; 83540; 83550; 83605; 83735; 83880; 84145; 84443; 84484; 85025; 85045; 85610; 85651; 85730; 86140; 87040; 87070; 87076; 87205; 88307; 88311; 93005; 93925; 97039; 99156; 99157; C1769; C1894; G0378; J0330; J0690; J1100; J1644; J1815; J2001; J2175; J2250; J2405; J2704; J3010; J3490; J7030; Q9967

== ENCOUNTER → 2020-11-26 | Outpatient (CLI) | payer OTHER ==
[~2020-11-26] MED LIST changes: -LISI2.5T13 PO; +LISI2.5T2 PO
== END | disposition home or self-care (01) ==
LOC: WHH 09:25
PROVIDERS: ATTEND Podiatrist Foot & Ankle Surgery
DX: T87.89 Other complications of amputation stump (principal); E11.621 Type 2 diabetes mellitus with foot ulcer; I70.245 Atherosclerosis of native arteries of left leg with ulceration of other part of foot; L97.512 Non-pressure chronic ulcer of other part of right foot with fat layer exposed; E11.52 Type 2 diabetes mellitus with diabetic peripheral angiopathy with gangrene; I96 Gangrene, not elsewhere classified; E11.42 Type 2 diabetes mellitus with diabetic polyneuropathy; I11.0 Hypertensive heart disease with heart failure; I50.23 Acute on chronic systolic (congestive) heart failure; E11.36 Type 2 diabetes mellitus with diabetic cataract; H40.9 Unspecified glaucoma; I25.10 Atherosclerotic heart disease of native coronary artery without angina pectoris; E78.5 Hyperlipidemia, unspecified; I25.5 Ischemic cardiomyopathy; I25.2 Old myocardial infarction; I50.9 Heart failure, unspecified; I25.110 Atherosclerotic heart disease of native coronary artery with unstable angina pectoris; F17.210 Nicotine dependence, cigarettes, uncomplicated; Z79.899 Other long term (current) drug therapy; Z95.1 Presence of aortocoronary bypass graft; Z79.02 Long term (current) use of antithrombotics/antiplatelets; Z79.82 Long term (current) use of aspirin; Z79.84 Long term (current) use of oral hypoglycemic drugs; Y83.5 Amputation of limb(s) as the cause of abnormal reaction of the patient, or of later complication, without mention of misadventure at the time of the procedure; Y92.238 Other place in hospital as the place of occurrence of the external cause
CPT/HCPCS: A4450; G0463

== ENCOUNTER → 2020-12-03 | Outpatient (CLI) | payer OTHER ==
[~2020-12-03] MED LIST changes: +LIDOCAINE HCL 2% JELLY 5 ML TP ONE
== END | disposition home or self-care (01) ==
LOC: WHH 09:00
PROVIDERS: ATTEND Podiatrist Foot & Ankle Surgery
DX: T87.44 Infection of amputation stump, left lower extremity (principal); E11.621 Type 2 diabetes mellitus with foot ulcer; I70.245 Atherosclerosis of native arteries of left leg with ulceration of other part of foot; L97.512 Non-pressure chronic ulcer of other part of right foot with fat layer exposed; E11.52 Type 2 diabetes mellitus with diabetic peripheral angiopathy with gangrene; I96 Gangrene, not elsewhere classified; E11.42 Type 2 diabetes mellitus with diabetic polyneuropathy; I11.0 Hypertensive heart disease with heart failure; I50.23 Acute on chronic systolic (congestive) heart failure; E11.36 Type 2 diabetes mellitus with diabetic cataract; H40.9 Unspecified glaucoma; I25.10 Atherosclerotic heart disease of native coronary artery without angina pectoris; E78.5 Hyperlipidemia, unspecified; I25.5 Ischemic cardiomyopathy; I50.9 Heart failure, unspecified; I25.110 Atherosclerotic heart disease of native coronary artery with unstable angina pectoris; F17.210 Nicotine dependence, cigarettes, uncomplicated; Z79.899 Other long term (current) drug therapy; Z95.1 Presence of aortocoronary bypass graft; Z79.02 Long term (current) use of antithrombotics/antiplatelets; Z79.82 Long term (current) use of aspirin; Z79.84 Long term (current) use of oral hypoglycemic drugs; Y83.5 Amputation of limb(s) as the cause of abnormal reaction of the patient, or of later complication, without mention of misadventure at the time of the procedure
CPT/HCPCS: 87070; 87077 ×2; 87186 ×2; G0463

== ENCOUNTER → 2020-12-05 | Outpatient (CLI) | payer OTHER ==
[~2020-12-05] MED LIST changes: -LIDOCAINE HCL 2% JELLY 5 ML TP ONE
== END | disposition home or self-care (01) ==
LOC: WHH 08:00
PROVIDERS: ATTEND Podiatrist Foot & Ankle Surgery
DX: T87.44 Infection of amputation stump, left lower extremity (principal); E11.621 Type 2 diabetes mellitus with foot ulcer; I70.245 Atherosclerosis of native arteries of left leg with ulceration of other part of foot; E11.52 Type 2 diabetes mellitus with diabetic peripheral angiopathy with gangrene; I96 Gangrene, not elsewhere classified; E11.42 Type 2 diabetes mellitus with diabetic polyneuropathy; I11.0 Hypertensive heart disease with heart failure; I50.23 Acute on chronic systolic (congestive) heart failure; E11.36 Type 2 diabetes mellitus with diabetic cataract; H40.9 Unspecified glaucoma; I25.10 Atherosclerotic heart disease of native coronary artery without angina pectoris; E78.5 Hyperlipidemia, unspecified; I25.5 Ischemic cardiomyopathy; I50.9 Heart failure, unspecified; F17.210 Nicotine dependence, cigarettes, uncomplicated; Z79.899 Other long term (current) drug therapy; Z95.1 Presence of aortocoronary bypass graft; Z79.82 Long term (current) use of aspirin; Z79.84 Long term (current) use of oral hypoglycemic drugs; Y83.5 Amputation of limb(s) as the cause of abnormal reaction of the patient, or of later complication, without mention of misadventure at the time of the procedure
CPT/HCPCS: G0463

== ENCOUNTER → 2020-12-10 | Outpatient (CLI) | payer OTHER ==
[~2020-12-10] MED LIST changes: +LIDOCAINE HCL 2% JELLY 5 ML TP ONE
== END | disposition home or self-care (01) ==
LOC: WHH 08:50
PROVIDERS: ATTEND Podiatrist Foot & Ankle Surgery
DX: T87.44 Infection of amputation stump, left lower extremity (principal); E11.621 Type 2 diabetes mellitus with foot ulcer; I70.245 Atherosclerosis of native arteries of left leg with ulceration of other part of foot; L97.522 Non-pressure chronic ulcer of other part of left foot with fat layer exposed; E11.52 Type 2 diabetes mellitus with diabetic peripheral angiopathy with gangrene; I96 Gangrene, not elsewhere classified; E11.36 Type 2 diabetes mellitus with diabetic cataract; E11.39 Type 2 diabetes mellitus with other diabetic ophthalmic complication; H42 Glaucoma in diseases classified elsewhere; E11.42 Type 2 diabetes mellitus with diabetic polyneuropathy; I11.0 Hypertensive heart disease with heart failure; I50.23 Acute on chronic systolic (congestive) heart failure; I25.10 Atherosclerotic heart disease of native coronary artery without angina pectoris; E78.5 Hyperlipidemia, unspecified; I25.5 Ischemic cardiomyopathy; F17.210 Nicotine dependence, cigarettes, uncomplicated; Z79.899 Other long term (current) drug therapy; Z95.1 Presence of aortocoronary bypass graft; Z79.82 Long term (current) use of aspirin; Z79.84 Long term (current) use of oral hypoglycemic drugs; Y83.5 Amputation of limb(s) as the cause of abnormal reaction of the patient, or of later complication, without mention of misadventure at the time of the procedure
CPT/HCPCS: G0463

== ENCOUNTER → 2020-12-12 | Outpatient (CLI) | payer OTHER ==
[~2020-12-12] MED LIST changes: -LIDOCAINE HCL 2% JELLY 5 ML TP ONE
== END | disposition home or self-care (01) ==
LOC: WHH 08:00
PROVIDERS: ATTEND Podiatrist Foot & Ankle Surgery
DX: T87.89 Other complications of amputation stump (principal); E11.621 Type 2 diabetes mellitus with foot ulcer; I70.245 Atherosclerosis of native arteries of left leg with ulceration of other part of foot; L97.522 Non-pressure chronic ulcer of other part of left foot with fat layer exposed; I70.235 Atherosclerosis of native arteries of right leg with ulceration of other part of foot; L97.512 Non-pressure chronic ulcer of other part of right foot with fat layer exposed; E11.52 Type 2 diabetes mellitus with diabetic peripheral angiopathy with gangrene; I96 Gangrene, not elsewhere classified; E11.42 Type 2 diabetes mellitus with diabetic polyneuropathy; I11.0 Hypertensive heart disease with heart failure; I50.23 Acute on chronic systolic (congestive) heart failure; E11.36 Type 2 diabetes mellitus with diabetic cataract; H40.9 Unspecified glaucoma; I25.10 Atherosclerotic heart disease of native coronary artery without angina pectoris; E78.5 Hyperlipidemia, unspecified; I25.5 Ischemic cardiomyopathy; I50.9 Heart failure, unspecified; F17.210 Nicotine dependence, cigarettes, uncomplicated; Z79.899 Other long term (current) drug therapy; Z95.1 Presence of aortocoronary bypass graft; Z79.82 Long term (current) use of aspirin; Z79.84 Long term (current) use of oral hypoglycemic drugs; Y83.5 Amputation of limb(s) as the cause of abnormal reaction of the patient, or of later complication, without mention of misadventure at the time of the procedure
CPT/HCPCS: G0463

== ENCOUNTER → 2020-12-15 | Outpatient (CLI) | payer OTHER | END | disposition home or self-care (01) | LOC: WHH 08:00 | PROVIDERS: ATTEND Podiatrist Foot & Ankle Surgery | DX: T87.89 Other complications of amputation stump (principal); E11.621 Type 2 diabetes mellitus with foot ulcer; I70.245 Atherosclerosis of native arteries of left leg with ulceration of other part of foot; L97.522 Non-pressure chronic ulcer of other part of left foot with fat layer exposed; I70.235 Atherosclerosis of native arteries of right leg with ulceration of other part of foot; L97.512 Non-pressure chronic ulcer of other part of right foot with fat layer exposed; E11.52 Type 2 diabetes mellitus with diabetic peripheral angiopathy with gangrene; I96 Gangrene, not elsewhere classified; E11.42 Type 2 diabetes mellitus with diabetic polyneuropathy; I11.0 Hypertensive heart disease with heart failure; I50.23 Acute on chronic systolic (congestive) heart failure; E11.36 Type 2 diabetes mellitus with diabetic cataract; H40.9 Unspecified glaucoma; I25.10 Atherosclerotic heart disease of native coronary artery without angina pectoris; E78.5 Hyperlipidemia, unspecified; I25.5 Ischemic cardiomyopathy; I50.9 Heart failure, unspecified; F17.210 Nicotine dependence, cigarettes, uncomplicated; Z79.899 Other long term (current) drug therapy; Z95.1 Presence of aortocoronary bypass graft; Z79.82 Long term (current) use of aspirin; Z79.84 Long term (current) use of oral hypoglycemic drugs; Y83.5 Amputation of limb(s) as the cause of abnormal reaction of the patient, or of later complication, without mention of misadventure at the time of the procedure | CPT/HCPCS: G0463 ==

== ENCOUNTER → 2020-12-17 | Outpatient (CLI) | payer OTHER ==
[~2020-12-17] MED LIST changes: +LIDOCAINE HCL 2% JELLY 5 ML TP ONE
== END | disposition home or self-care (01) ==
LOC: WHH 08:00
PROVIDERS: ATTEND Podiatrist Foot & Ankle Surgery
DX: T87.81 Dehiscence of amputation stump (principal); E11.621 Type 2 diabetes mellitus with foot ulcer; I70.245 Atherosclerosis of native arteries of left leg with ulceration of other part of foot; L97.522 Non-pressure chronic ulcer of other part of left foot with fat layer exposed; I70.235 Atherosclerosis of native arteries of right leg with ulceration of other part of foot; L97.512 Non-pressure chronic ulcer of other part of right foot with fat layer exposed; E11.52 Type 2 diabetes mellitus with diabetic peripheral angiopathy with gangrene; I96 Gangrene, not elsewhere classified; E11.42 Type 2 diabetes mellitus with diabetic polyneuropathy; I11.0 Hypertensive heart disease with heart failure; I50.23 Acute on chronic systolic (congestive) heart failure; E11.36 Type 2 diabetes mellitus with diabetic cataract; H40.9 Unspecified glaucoma; I25.10 Atherosclerotic heart disease of native coronary artery without angina pectoris; E78.5 Hyperlipidemia, unspecified; I25.5 Ischemic cardiomyopathy; I50.9 Heart failure, unspecified; F17.210 Nicotine dependence, cigarettes, uncomplicated; Z79.899 Other long term (current) drug therapy; Z95.1 Presence of aortocoronary bypass graft; Z79.82 Long term (current) use of aspirin; Z79.84 Long term (current) use of oral hypoglycemic drugs; Y83.5 Amputation of limb(s) as the cause of abnormal reaction of the patient, or of later complication, without mention of misadventure at the time of the procedure
CPT/HCPCS: A4450; A6207; G0463

== ENCOUNTER → 2020-12-19 | Outpatient (CLI) | payer OTHER ==
[~2020-12-19] MED LIST changes: -LIDOCAINE HCL 2% JELLY 5 ML TP ONE
== END | disposition home or self-care (01) ==
LOC: WHH 08:00
PROVIDERS: ATTEND Podiatrist Foot & Ankle Surgery
DX: T87.89 Other complications of amputation stump (principal); E11.621 Type 2 diabetes mellitus with foot ulcer; I70.245 Atherosclerosis of native arteries of left leg with ulceration of other part of foot; L97.522 Non-pressure chronic ulcer of other part of left foot with fat layer exposed; I70.235 Atherosclerosis of native arteries of right leg with ulceration of other part of foot; L97.512 Non-pressure chronic ulcer of other part of right foot with fat layer exposed; E11.52 Type 2 diabetes mellitus with diabetic peripheral angiopathy with gangrene; I96 Gangrene, not elsewhere classified; E11.42 Type 2 diabetes mellitus with diabetic polyneuropathy; I11.0 Hypertensive heart disease with heart failure; I50.23 Acute on chronic systolic (congestive) heart failure; I25.110 Atherosclerotic heart disease of native coronary artery with unstable angina pectoris; E11.36 Type 2 diabetes mellitus with diabetic cataract; H40.9 Unspecified glaucoma; I25.10 Atherosclerotic heart disease of native coronary artery without angina pectoris; E78.5 Hyperlipidemia, unspecified; I25.5 Ischemic cardiomyopathy; I50.9 Heart failure, unspecified; F17.210 Nicotine dependence, cigarettes, uncomplicated; Z79.899 Other long term (current) drug therapy; Z95.1 Presence of aortocoronary bypass graft; Z79.82 Long term (current) use of aspirin; Z79.84 Long term (current) use of oral hypoglycemic drugs; Y83.5 Amputation of limb(s) as the cause of abnormal reaction of the patient, or of later complication, without mention of misadventure at the time of the procedure
CPT/HCPCS: A6207; G0463

== ENCOUNTER → 2020-12-22 | Outpatient (CLI) | payer OTHER ==
[~2020-12-22] MED LIST changes: +LIDOCAINE HCL 2% JELLY 5 ML TP ONE
== END | disposition home or self-care (01) ==
LOC: WHH 08:00
PROVIDERS: ATTEND Podiatrist Foot & Ankle Surgery
DX: T87.89 Other complications of amputation stump (principal); E11.621 Type 2 diabetes mellitus with foot ulcer; I70.245 Atherosclerosis of native arteries of left leg with ulceration of other part of foot; L97.522 Non-pressure chronic ulcer of other part of left foot with fat layer exposed; I70.235 Atherosclerosis of native arteries of right leg with ulceration of other part of foot; L97.512 Non-pressure chronic ulcer of other part of right foot with fat layer exposed; E11.52 Type 2 diabetes mellitus with diabetic peripheral angiopathy with gangrene; I96 Gangrene, not elsewhere classified; E11.42 Type 2 diabetes mellitus with diabetic polyneuropathy; I11.0 Hypertensive heart disease with heart failure; I50.23 Acute on chronic systolic (congestive) heart failure; I25.110 Atherosclerotic heart disease of native coronary artery with unstable angina pectoris; E11.36 Type 2 diabetes mellitus with diabetic cataract; H40.9 Unspecified glaucoma; I25.10 Atherosclerotic heart disease of native coronary artery without angina pectoris; E78.5 Hyperlipidemia, unspecified; I25.5 Ischemic cardiomyopathy; I50.9 Heart failure, unspecified; F17.210 Nicotine dependence, cigarettes, uncomplicated; Z79.899 Other long term (current) drug therapy; Z95.1 Presence of aortocoronary bypass graft; Z79.82 Long term (current) use of aspirin; Y83.5 Amputation of limb(s) as the cause of abnormal reaction of the patient, or of later complication, without mention of misadventure at the time of the procedure
CPT/HCPCS: A6207; G0463

== ENCOUNTER → 2020-12-24 | Outpatient (CLI) | payer OTHER ==
[~2020-12-24] MED LIST changes: -LIDOCAINE HCL 2% JELLY 5 ML TP ONE
== END | disposition home or self-care (01) ==
LOC: WHH 08:55
PROVIDERS: ATTEND Podiatrist Foot & Ankle Surgery
DX: T87.89 Other complications of amputation stump (principal); E11.621 Type 2 diabetes mellitus with foot ulcer; I70.245 Atherosclerosis of native arteries of left leg with ulceration of other part of foot; L97.521 Non-pressure chronic ulcer of other part of left foot limited to breakdown of skin; I70.235 Atherosclerosis of native arteries of right leg with ulceration of other part of foot; L97.512 Non-pressure chronic ulcer of other part of right foot with fat layer exposed; E11.52 Type 2 diabetes mellitus with diabetic peripheral angiopathy with gangrene; I96 Gangrene, not elsewhere classified; E11.42 Type 2 diabetes mellitus with diabetic polyneuropathy; I11.0 Hypertensive heart disease with heart failure; I50.23 Acute on chronic systolic (congestive) heart failure; I25.110 Atherosclerotic heart disease of native coronary artery with unstable angina pectoris; E11.36 Type 2 diabetes mellitus with diabetic cataract; H42 Glaucoma in diseases classified elsewhere; E78.5 Hyperlipidemia, unspecified; I25.5 Ischemic cardiomyopathy; I50.9 Heart failure, unspecified; F17.210 Nicotine dependence, cigarettes, uncomplicated; Z79.899 Other long term (current) drug therapy; Z95.1 Presence of aortocoronary bypass graft; Z79.82 Long term (current) use of aspirin; Y83.5 Amputation of limb(s) as the cause of abnormal reaction of the patient, or of later complication, without mention of misadventure at the time of the procedure
CPT/HCPCS: A4450; A6207; G0463

== ENCOUNTER → 2020-12-31 | Outpatient (CLI) | payer OTHER ==
[~2020-12-31] MED LIST changes: +LIDOCAINE HCL 2% JELLY 5 ML TP ONE
== END | disposition home or self-care (01) ==
LOC: WHH 08:00
PROVIDERS: ATTEND Podiatrist Foot & Ankle Surgery
DX: T87.81 Dehiscence of amputation stump (principal); E11.621 Type 2 diabetes mellitus with foot ulcer; I70.245 Atherosclerosis of native arteries of left leg with ulceration of other part of foot; L97.522 Non-pressure chronic ulcer of other part of left foot with fat layer exposed; I70.235 Atherosclerosis of native arteries of right leg with ulceration of other part of foot; L97.512 Non-pressure chronic ulcer of other part of right foot with fat layer exposed; E11.52 Type 2 diabetes mellitus with diabetic peripheral angiopathy with gangrene; I96 Gangrene, not elsewhere classified; E11.42 Type 2 diabetes mellitus with diabetic polyneuropathy; I11.0 Hypertensive heart disease with heart failure; I50.23 Acute on chronic systolic (congestive) heart failure; I25.110 Atherosclerotic heart disease of native coronary artery with unstable angina pectoris; E11.36 Type 2 diabetes mellitus with diabetic cataract; H42 Glaucoma in diseases classified elsewhere; E78.5 Hyperlipidemia, unspecified; I25.2 Old myocardial infarction; I50.9 Heart failure, unspecified; F17.210 Nicotine dependence, cigarettes, uncomplicated; Z79.899 Other long term (current) drug therapy; Z95.1 Presence of aortocoronary bypass graft; Z79.82 Long term (current) use of aspirin; Y83.5 Amputation of limb(s) as the cause of abnormal reaction of the patient, or of later complication, without mention of misadventure at the time of the procedure
CPT/HCPCS: 11042; 87070; 87076; 87077 ×2; 87186 ×2; A6207

== ENCOUNTER → 2021-01-14 | Outpatient (CLI) | payer OTHER ==
[~2021-01-14] MED LIST changes: +AMIO200T6 PO; +ATOR-2 PO; +CLOP75TA32 PO; +FURO40TA5 PO; +INSU100V12 SQ; +METO25TA6 PO
== END | disposition home or self-care (01) ==
LOC: WHH 08:41
PROVIDERS: ATTEND Podiatrist Foot & Ankle Surgery
DX: T87.81 Dehiscence of amputation stump (principal); E11.621 Type 2 diabetes mellitus with foot ulcer; I70.245 Atherosclerosis of native arteries of left leg with ulceration of other part of foot; L97.522 Non-pressure chronic ulcer of other part of left foot with fat layer exposed; I70.235 Atherosclerosis of native arteries of right leg with ulceration of other part of foot; L97.512 Non-pressure chronic ulcer of other part of right foot with fat layer exposed; I25.110 Atherosclerotic heart disease of native coronary artery with unstable angina pectoris; I11.0 Hypertensive heart disease with heart failure; I50.23 Acute on chronic systolic (congestive) heart failure; E11.52 Type 2 diabetes mellitus with diabetic peripheral angiopathy with gangrene; I96 Gangrene, not elsewhere classified; E11.39 Type 2 diabetes mellitus with other diabetic ophthalmic complication; E11.42 Type 2 diabetes mellitus with diabetic polyneuropathy; E11.36 Type 2 diabetes mellitus with diabetic cataract; H26.8 Other specified cataract; E78.5 Hyperlipidemia, unspecified; I25.2 Old myocardial infarction; I25.5 Ischemic cardiomyopathy; F17.210 Nicotine dependence, cigarettes, uncomplicated; Z79.84 Long term (current) use of oral hypoglycemic drugs; Z79.82 Long term (current) use of aspirin; Z95.1 Presence of aortocoronary bypass graft; Z79.02 Long term (current) use of antithrombotics/antiplatelets; Z79.899 Other long term (current) drug therapy; Y83.5 Amputation of limb(s) as the cause of abnormal reaction of the patient, or of later complication, without mention of misadventure at the time of the procedure
CPT/HCPCS: 11042; A4450; A6260

== ENCOUNTER 2021-01-15 09:25 | Observation (INO) | payer OTHER ==
[2021-01-12 12:08] LABS: BASOPHILS % (AUTO) 0.6 % (0.0-5.0); EOSINOPHILS % (AUTO) 2.8 % (0.0-8.0); HEMATOCRIT 35.6 % (42-54); LYMPHOCYTES % (AUTO) 24.2 % (21.0-51.0); MEAN CORPUSCULAR HEMOGLOBIN 25.9 pg (27.0-33.0); MEAN CORPUSCULAR HGB CONC 31.5 g/dL (32.0-36.0); MEAN CORPUSCULAR VOLUME 82.4 fL (79-99); MONOCYTES % (AUTO) 10.4 % (3.0-13.0); NEUTROPHILS % (AUTO) 61.8 % (40.0-77.0); PLATELET COUNT (AUTO) 252 K/uL (130-400); RED BLOOD CELL COUNT(AUTO) 4.32 MIL/uL (4.50-6.20); WHITE BLOOD COUNT (AUTO) 8.5 K/uL (4.8-10.8)
[2021-01-12 12:13] LABS: APPEARANCE,URINE Clear (CLEAR); BILIRUBIN,URINE Negative (NEGATIVE); COLOR,URINE Yellow (YELLOW); GLUCOSE, URINE (UA) >=1000 mg/dL (NEGATIVE); KETONES,URINE Negative (NEGATIVE); LEUKOCYTE ESTERASE ,URINE Negative (NEGATIVE); NITRATE,URINE Negative (NEGATIVE); OCCULT BLOOD,URINE Negative (NEGATIVE); PROTEIN,URINE Negative (NEGATIVE); UROBILINOGEN,URINE 0.2 mg/dL (0.2-1.0)
[2021-01-12 12:23] LABS: CREATININE 1.1 mg/dL (0.5-1.5); POTASSIUM 5.4 mmol/L (3.5-5.1)
[2021-01-12 12:44] LABS: BACTERIA,URINE Rare /HPF (None Seen); RBC,URINE 0-1 /HPF (0-1); SQUAMOUS EPITHELIAL CELL,UR Rare /HPF (0-2); WBC,URINE 0-1 /HPF (0-1)
[2021-01-12 13:15] LABS: INR 1.05 (0.85-1.15); PROTHROMBIN TIME 11.4 SEC (9.6-11.6)
[2021-01-12 13:16] LABS: PARTIAL THROMBOPLASTIN TIME 27.6 SEC (26.3-35.5)
[2021-01-12 15:33] VITALS: BP 93/49
[~2021-01-15] VITALS: Ht 175.3 cm; Wt 74.0 kg
[~2021-01-15 09:25] MED LIST changes: -AMIO100T4 PO; -ATOR40TA71 PO; -CLOP75TA32 PO; -FURO20TA4 PO; -LIDOCAINE HCL 2% JELLY 5 ML TP ONE; -METO-408 PO; -PRAS10TA6 PO; +SODIUM CHLORIDE 0.9% 1000ML 1,000 ML IV SCH
[2021-01-15 09:30] VITALS: BP 104/56
[2021-01-15 14:20] VITALS: BP 98/55
[2021-01-15] MEDS ORDERED: SODIUM BICARB 50MEQ 50ML VIAL 50 ML ONE (15:25)
[2021-01-15] MEDS ORDERED: HEPARIN SODIUM 1000UNIT/ML 10ML VIAL ONE (15:25)
[2021-01-15] MEDS ORDERED: NITROGLYCERIN 2 MG/VIAL VIAL IV ONE (15:25)
[2021-01-15] MEDS ORDERED: MIDAZOLAM HCL 1 MG/ML 2ML VIAL ONE (15:26)
[2021-01-15] MEDS ORDERED: FENTANYL CITRATE PF 50 MCG/1 ML 2ML VIAL ONE (15:26)
[2021-01-15] MEDS ORDERED: LIDOCAINE HCL 2% 20ML ONE (15:26)
[2021-01-15 17:00] VITALS: BP 95/52
[2021-01-15] MEDS ORDERED: SODIUM CHLORIDE 0.9% 10 ML VIAL IVP PRN (17:30)
[2021-01-15 19:54] VITALS: BP 144/78
[2021-01-15] MEDS ORDERED: ATORVASTATIN CALCIUM 40 MG TABLET PO SCH (21:00)
[2021-01-15] MEDS ORDERED: CLOPIDOGREL BISULFATE 300 MG TAB PO SCH (21:00)
[2021-01-15] MEDS: GLIPIZIDE 5 MG TABLET PO SCH (21:11)
[2021-01-15] MEDS: FAMOTIDINE 20MG TAB 20 MG TAB PO SCH (21:12)
[2021-01-15] MEDS: METOPROLOL TARTRATE 25 MG TAB PO SCH (21:12)
[2021-01-15] MEDS: FUROSEMIDE 40 MG TABLET PO SCH (21:12)
[2021-01-15] MEDS: INSULIN R PO SS1 SQ SCH (21:15)
[2021-01-15 23:34] VITALS: BP 110/58
[2021-01-16] VITALS (11 sets, daily range): BP systolic 96–123; BP diastolic 40–62
[2021-01-16] MEDS: INSULIN R PO SS1 SQ SCH ×3 (05:56→16:00)
[2021-01-16] MEDS: METOPROLOL TARTRATE 25 MG TAB PO SCH (09:00)
[2021-01-16] MEDS ORDERED: ASCORBIC ACID 500 MG TAB PO SCH (09:00)
[2021-01-16] MEDS ORDERED: ASPIRIN 81MG TAB.CHEW PO SCH (09:00)
[2021-01-16] MEDS ORDERED: **HM**(Empagliflozin (Jardiance) 25 MG PO SCH (09:00)
[2021-01-16] MEDS: FAMOTIDINE 20MG TAB 20 MG TAB PO SCH (09:00)
[2021-01-16] MEDS: FUROSEMIDE 40 MG TABLET PO SCH (09:00)
[2021-01-16] MEDS: GLIPIZIDE 5 MG TABLET PO SCH (09:00)
[2021-01-16] MEDS ORDERED: AMIODARONE HCL 200 MG TABLET PO SCH (09:00)
[2021-01-16] MEDS ORDERED: LISINOPRIL 2.5 MG TABLET PO SCH (09:00)
[2021-01-16] MEDS ORDERED: NITROGLYCERIN 2 MG/VIAL VIAL IV ONE (09:54)
[2021-01-16] MEDS ORDERED: SODIUM BICARB 50MEQ 50ML VIAL 50 ML ONE (09:54)
[2021-01-16] MEDS ORDERED: IODIXANOL 320 MG/ML 100 ML VIAL ONE (09:54)
[2021-01-16] MEDS ORDERED: HEPARIN SODIUM 1000UNIT/ML 10ML VIAL ONE (09:54)
[2021-01-16] MEDS ORDERED: FENTANYL CITRATE PF 50 MCG/1 ML 2ML VIAL ONE (09:55)
[2021-01-16] MEDS ORDERED: MIDAZOLAM HCL 1 MG/ML 2ML VIAL ONE (09:55)
[2021-01-16] MEDS ORDERED: LIDOCAINE HCL 2% 20ML ONE (09:55)
[2021-01-16] MEDS ORDERED: DEXTROSE 50%-WATER 50 ML DISP.SYRIN IV PRN (13:45)
[2021-01-16] MEDS ORDERED: SODIUM CHLORIDE 0.9% 1000ML 1,000 ML IV SCH (13:45)
[2021-01-16] MEDS ORDERED: GLUCAGON 1MG KIT 1 MG ML IM PRN (13:45)
[2021-01-16] MEDS ORDERED: CLOP75TA32 PO (14:01)
== END 2021-01-16 18:55 | disposition home or self-care (01) ==
LOC: DAH 09:25 → 4CH 09:25 → DAH 09:26
PROVIDERS: ADMIT Internal Medicine Cardiovascular Disease; ATTEND Internal Medicine Cardiovascular Disease
DX: E11.51 Type 2 diabetes mellitus with diabetic peripheral angiopathy without gangrene (principal); E11.621 Type 2 diabetes mellitus with foot ulcer; L97.319 Non-pressure chronic ulcer of right ankle with unspecified severity; L97.519 Non-pressure chronic ulcer of other part of right foot with unspecified severity; L97.529 Non-pressure chronic ulcer of other part of left foot with unspecified severity; T81.30XA Disruption of wound, unspecified, initial encounter; I10 Essential (primary) hypertension; I25.5 Ischemic cardiomyopathy; I25.10 Atherosclerotic heart disease of native coronary artery without angina pectoris; Z87.891 Personal history of nicotine dependence; Z95.1 Presence of aortocoronary bypass graft; Z89.422 Acquired absence of other left toe(s); Z79.4 Long term (current) use of insulin; Z79.899 Other long term (current) drug therapy
CPT/HCPCS: 36247; 36415; 71045; 75716; 80048; 81001; 82948 ×5; 85025; 85610; 85730; 93005; 96372; A4215; A4216; A4221; A4222; A4223 ×3; A4606; A4663; C1760; C1769; C1893; C1894 ×2; G0378 ×25; J1644 ×2; J3490 ×6; J7030; Q9967; J2250; J3010

== ENCOUNTER → 2021-01-21 | Outpatient (CLI) | payer OTHER ==
[~2021-01-21] MED LIST changes: +LIDOCAINE HCL 4% LTA SOL 4 ML VIAL TP ONE; -SODIUM CHLORIDE 0.9% 1000ML 1,000 ML IV SCH
== END | disposition home or self-care (01) ==
LOC: WHH 08:14
PROVIDERS: ATTEND Podiatrist Foot & Ankle Surgery
DX: T87.81 Dehiscence of amputation stump (principal); E11.621 Type 2 diabetes mellitus with foot ulcer; I70.245 Atherosclerosis of native arteries of left leg with ulceration of other part of foot; L97.522 Non-pressure chronic ulcer of other part of left foot with fat layer exposed; I70.235 Atherosclerosis of native arteries of right leg with ulceration of other part of foot; L97.512 Non-pressure chronic ulcer of other part of right foot with fat layer exposed; I25.110 Atherosclerotic heart disease of native coronary artery with unstable angina pectoris; I11.0 Hypertensive heart disease with heart failure; I50.23 Acute on chronic systolic (congestive) heart failure; E11.52 Type 2 diabetes mellitus with diabetic peripheral angiopathy with gangrene; I96 Gangrene, not elsewhere classified; E11.39 Type 2 diabetes mellitus with other diabetic ophthalmic complication; E11.42 Type 2 diabetes mellitus with diabetic polyneuropathy; E11.36 Type 2 diabetes mellitus with diabetic cataract; H26.8 Other specified cataract; E78.5 Hyperlipidemia, unspecified; I25.2 Old myocardial infarction; I25.5 Ischemic cardiomyopathy; F17.210 Nicotine dependence, cigarettes, uncomplicated; Z79.84 Long term (current) use of oral hypoglycemic drugs; Z79.82 Long term (current) use of aspirin; Z95.1 Presence of aortocoronary bypass graft; Z79.02 Long term (current) use of antithrombotics/antiplatelets; Z79.899 Other long term (current) drug therapy; Y83.5 Amputation of limb(s) as the cause of abnormal reaction of the patient, or of later complication, without mention of misadventure at the time of the procedure
CPT/HCPCS: 11042

== ENCOUNTER → 2021-02-04 | Outpatient (CLI) | payer OTHER ==
[~2021-02-04] MED LIST changes: +AEC81 PO; +ALBUTEROL INHALER; +ASCO100031 PO; +ATOR40TA69 PO; +FLUT15.845 NS; -LIDOCAINE HCL 4% LTA SOL 4 ML VIAL TP ONE; +PRAS10TA9 PO
[2021-02-04 09:17] LABS: BASOPHILS % (AUTO) 0.5 % (0.0-5.0); EOSINOPHILS % (AUTO) 3.8 % (0.0-8.0); HEMATOCRIT 35.8 % (42-54); LYMPHOCYTES % (AUTO) 29.1 % (21.0-51.0); MEAN CORPUSCULAR HEMOGLOBIN 26.2 pg (27.0-33.0); MEAN CORPUSCULAR HGB CONC 31.3 g/dL (32.0-36.0); MEAN CORPUSCULAR VOLUME 83.6 fL (79-99); MONOCYTES % (AUTO) 11.9 % (3.0-13.0); NEUTROPHILS % (AUTO) 54.3 % (40.0-77.0); PLATELET COUNT (AUTO) 260 K/uL (130-400); RED BLOOD CELL COUNT(AUTO) 4.28 MIL/uL (4.50-6.20); RED CELL DISTRIBUTION WIDTH 18.4 % (11.0-15.5); WHITE BLOOD COUNT (AUTO) 8.4 K/uL (4.8-10.8)
[2021-02-04 09:26] LABS: POTASSIUM 5.2 mmol/L (3.5-5.1)
[2021-02-04 09:30] LABS: ALBUMIN 3.3 g/dL (3.5-5.0); BILIRUBIN,TOTAL 0.2 mg/dL (0.2-1.0); TOTAL PROTEIN, SERUM 6.9 g/dL (6.0-8.3)
== END | disposition home or self-care (01) ==
LOC: WHH 08:05
PROVIDERS: ATTEND Podiatrist Foot & Ankle Surgery
DX: T87.81 Dehiscence of amputation stump (principal); E11.621 Type 2 diabetes mellitus with foot ulcer; L97.522 Non-pressure chronic ulcer of other part of left foot with fat layer exposed; I70.245 Atherosclerosis of native arteries of left leg with ulceration of other part of foot; I70.235 Atherosclerosis of native arteries of right leg with ulceration of other part of foot; L97.512 Non-pressure chronic ulcer of other part of right foot with fat layer exposed; E11.52 Type 2 diabetes mellitus with diabetic peripheral angiopathy with gangrene; I96 Gangrene, not elsewhere classified; I25.10 Atherosclerotic heart disease of native coronary artery without angina pectoris; I11.0 Hypertensive heart disease with heart failure; I50.23 Acute on chronic systolic (congestive) heart failure; E11.39 Type 2 diabetes mellitus with other diabetic ophthalmic complication; E11.42 Type 2 diabetes mellitus with diabetic polyneuropathy; E11.36 Type 2 diabetes mellitus with diabetic cataract; H26.8 Other specified cataract; E78.5 Hyperlipidemia, unspecified; I25.2 Old myocardial infarction; I25.5 Ischemic cardiomyopathy; F17.210 Nicotine dependence, cigarettes, uncomplicated; Z79.84 Long term (current) use of oral hypoglycemic drugs; Z79.82 Long term (current) use of aspirin; Z95.1 Presence of aortocoronary bypass graft; Z79.02 Long term (current) use of antithrombotics/antiplatelets; Z79.899 Other long term (current) drug therapy; Y83.5 Amputation of limb(s) as the cause of abnormal reaction of the patient, or of later complication, without mention of misadventure at the time of the procedure
CPT/HCPCS: 11042; 36415; 80053; 85025

== ENCOUNTER 2021-02-11 09:23 | Day surgery (SDC) | payer OTHER ==
[2021-02-09 15:28] LABS: BASOPHILS % (AUTO) 0.7 % (0.0-5.0); EOSINOPHILS % (AUTO) 3.2 % (0.0-8.0); HEMATOCRIT 37.2 % (42-54); LYMPHOCYTES % (AUTO) 24.9 % (21.0-51.0); MEAN CORPUSCULAR HEMOGLOBIN 25.8 pg (27.0-33.0); MEAN CORPUSCULAR HGB CONC 30.9 g/dL (32.0-36.0); MEAN CORPUSCULAR VOLUME 83.6 fL (79-99); MONOCYTES % (AUTO) 9.4 % (3.0-13.0); NEUTROPHILS % (AUTO) 61.6 % (40.0-77.0); PLATELET COUNT (AUTO) 265 K/uL (130-400); RED BLOOD CELL COUNT(AUTO) 4.45 MIL/uL (4.50-6.20); WHITE BLOOD COUNT (AUTO) 8.8 K/uL (4.8-10.8)
[2021-02-09 15:38] LABS: CREATININE 1.4 mg/dL (0.5-1.5); INR 1.06 (0.85-1.15); PROTHROMBIN TIME 11.5 SEC (9.6-11.6)
[2021-02-09 15:40] LABS: PARTIAL THROMBOPLASTIN TIME 28.5 SEC (26.3-35.5)
[2021-02-09 15:47] LABS: POTASSIUM 6.1 mmol/L (3.5-5.1)
[2021-02-09 16:10] LABS: APPEARANCE,URINE Clear (CLEAR); BILIRUBIN,URINE Negative (NEGATIVE); COLOR,URINE Yellow (YELLOW); GLUCOSE, URINE (UA) >=1000 mg/dL (NEGATIVE); KETONES,URINE Negative (NEGATIVE); LEUKOCYTE ESTERASE ,URINE Negative (NEGATIVE); NITRATE,URINE Negative (NEGATIVE); OCCULT BLOOD,URINE Negative (NEGATIVE); PROTEIN,URINE Negative (NEGATIVE)
[2021-02-09 16:25] LABS: RBC,URINE 0-1 /HPF (0-1); WBC,URINE 0-1 /HPF (0-1)
[2021-02-09 16:26] LABS: BACTERIA,URINE Rare /HPF (None Seen); SQUAMOUS EPITHELIAL CELL,UR Rare /HPF (0-2)
[2021-02-10 10:59] LABS: CREATININE 1.2 mg/dL (0.5-1.5); POTASSIUM 5.1 mmol/L (3.5-5.1)
[2021-02-10 15:21] VITALS: BP 94/45
[2021-02-11] VITALS (9 sets, daily range): BP systolic 95–123; BP diastolic 50–72
[~2021-02-11] VITALS: Ht 175.3 cm; Wt 75.0 kg
[~2021-02-11 09:23] MED LIST changes: -ASCO500T20 PO; -ASPI-1197 PO; -ATOR-2 PO; +NACL 0.9% 1000ML 1,000 ML IV SCH
[2021-02-11] MEDS ORDERED: SODIUM BICARB 50MEQ 50ML VIAL 50 ML ONE (13:42)
[2021-02-11] MEDS ORDERED: MEPERIDINE-PF 25 MG/ML SYG ONE (13:42)
[2021-02-11] MEDS ORDERED: HEPARIN 10,000 UNIT/10ML (1,000 UNIT/ML) VIAL ONE (13:42)
[2021-02-11] MEDS ORDERED: NITROGLYCERIN 2 MG VIAL IV ONE (13:42)
[2021-02-11] MEDS ORDERED: IODIXANOL 320 MG/ML 100 ML VIAL ONE (13:42)
[2021-02-11] MEDS ORDERED: MIDAZOLAM HCL 1 MG/ML 2ML VIAL ONE (13:42)
[2021-02-11] MEDS ORDERED: LIDOCAINE HCL 400MG/20ML VIAL ONE (13:43)
[2021-02-11] MEDS ORDERED: FENTANYL CITRATE PF 50 MCG/1 ML 2ML VIAL ONE (14:01)
[2021-02-11] MEDS ORDERED: ASPIRIN 81MG CHEW TAB ONE (15:34)
[2021-02-11] MEDS ORDERED: PRASUGREL HCL 10 MG TABLET ONE (15:34)
[2021-02-11] MEDS ORDERED: NACL 0.9% 1000ML 1,000 ML IV SCH (16:00)
== END 2021-02-11 19:34 | disposition home or self-care (01) ==
LOC: DAH 09:23
PROVIDERS: ATTEND Internal Medicine Cardiovascular Disease
DX: I70.245 Atherosclerosis of native arteries of left leg with ulceration of other part of foot (principal); E11.51 Type 2 diabetes mellitus with diabetic peripheral angiopathy without gangrene; I11.0 Hypertensive heart disease with heart failure; I50.22 Chronic systolic (congestive) heart failure; I25.5 Ischemic cardiomyopathy; I48.0 Paroxysmal atrial fibrillation; I25.10 Atherosclerotic heart disease of native coronary artery without angina pectoris; Z95.1 Presence of aortocoronary bypass graft; Z90.89 Acquired absence of other organs; Z72.89 Other problems related to lifestyle; Z79.84 Long term (current) use of oral hypoglycemic drugs; Z79.82 Long term (current) use of aspirin; Z79.01 Long term (current) use of anticoagulants
CPT/HCPCS: 36415 ×3; 71045; 75710; 80048 ×2; 81001; 82948 ×2; 85025; 85347; 85610; 85730; 93005; A4215; A4216; A4221; A4222; A4223 ×3; A4606; A4663; C1727; C1760; C1769 ×2; C1893; C1894 ×2; C9764; J1644 ×2; J3490 ×3; Q9967; J2175; J2250; J3010

== ENCOUNTER → 2021-02-18 | Outpatient (CLI) | payer OTHER ==
[~2021-02-18] MED LIST changes: +LIDOCAINE HCL 4% LTA SOL 4 ML VIAL TP ONE; -NACL 0.9% 1000ML 1,000 ML IV SCH
== END | disposition home or self-care (01) ==
LOC: WHH 08:08
PROVIDERS: ATTEND Podiatrist Foot & Ankle Surgery
DX: T87.89 Other complications of amputation stump (principal); E11.621 Type 2 diabetes mellitus with foot ulcer; L97.522 Non-pressure chronic ulcer of other part of left foot with fat layer exposed; I70.245 Atherosclerosis of native arteries of left leg with ulceration of other part of foot; I70.235 Atherosclerosis of native arteries of right leg with ulceration of other part of foot; L97.512 Non-pressure chronic ulcer of other part of right foot with fat layer exposed; E11.52 Type 2 diabetes mellitus with diabetic peripheral angiopathy with gangrene; I96 Gangrene, not elsewhere classified; I25.10 Atherosclerotic heart disease of native coronary artery without angina pectoris; I11.0 Hypertensive heart disease with heart failure; I50.23 Acute on chronic systolic (congestive) heart failure; E11.39 Type 2 diabetes mellitus with other diabetic ophthalmic complication; E11.42 Type 2 diabetes mellitus with diabetic polyneuropathy; E11.36 Type 2 diabetes mellitus with diabetic cataract; H26.8 Other specified cataract; E78.5 Hyperlipidemia, unspecified; I25.2 Old myocardial infarction; I25.5 Ischemic cardiomyopathy; F17.210 Nicotine dependence, cigarettes, uncomplicated; Z79.84 Long term (current) use of oral hypoglycemic drugs; Z95.1 Presence of aortocoronary bypass graft; Z79.02 Long term (current) use of antithrombotics/antiplatelets; Z79.899 Other long term (current) drug therapy; Y83.5 Amputation of limb(s) as the cause of abnormal reaction of the patient, or of later complication, without mention of misadventure at the time of the procedure
CPT/HCPCS: 11042; 87070; 87077; 87186

== ENCOUNTER → 2021-03-01 | Outpatient (CLI) | payer OTHER ==
[~2021-03-01] MED LIST changes: -LIDOCAINE HCL 4% LTA SOL 4 ML VIAL TP ONE
== END | disposition home or self-care (01) ==
LOC: SHCH 08:10
PROVIDERS: ATTEND Internal Medicine Cardiovascular Disease
DX: I50.22 Chronic systolic (congestive) heart failure (principal)
CPT/HCPCS: 93306; 93356

== ENCOUNTER → 2021-03-04 | Outpatient (CLI) | payer OTHER ==
[~2021-03-04] MED LIST changes: +LIDOCAINE HCL 4% LTA SOL 4 ML VIAL TP ONE
== END | disposition home or self-care (01) ==
LOC: WHH 08:15
PROVIDERS: ATTEND Podiatrist Foot & Ankle Surgery
DX: T87.81 Dehiscence of amputation stump (principal); E11.621 Type 2 diabetes mellitus with foot ulcer; L97.522 Non-pressure chronic ulcer of other part of left foot with fat layer exposed; I70.245 Atherosclerosis of native arteries of left leg with ulceration of other part of foot; I70.235 Atherosclerosis of native arteries of right leg with ulceration of other part of foot; E11.52 Type 2 diabetes mellitus with diabetic peripheral angiopathy with gangrene; I96 Gangrene, not elsewhere classified; I25.10 Atherosclerotic heart disease of native coronary artery without angina pectoris; I11.0 Hypertensive heart disease with heart failure; I50.23 Acute on chronic systolic (congestive) heart failure; E11.39 Type 2 diabetes mellitus with other diabetic ophthalmic complication; E11.42 Type 2 diabetes mellitus with diabetic polyneuropathy; E11.36 Type 2 diabetes mellitus with diabetic cataract; H26.8 Other specified cataract; E78.5 Hyperlipidemia, unspecified; I25.2 Old myocardial infarction; I25.5 Ischemic cardiomyopathy; F17.210 Nicotine dependence, cigarettes, uncomplicated; Z79.84 Long term (current) use of oral hypoglycemic drugs; Z95.1 Presence of aortocoronary bypass graft; Z79.02 Long term (current) use of antithrombotics/antiplatelets; Z79.899 Other long term (current) drug therapy; Y83.5 Amputation of limb(s) as the cause of abnormal reaction of the patient, or of later complication, without mention of misadventure at the time of the procedure
CPT/HCPCS: 11042; A4450

== ENCOUNTER → 2021-03-25 | Outpatient (CLI) | payer OTHER ==
[~2021-03-25] MED LIST changes: +CLOP75TA32 PO
== END | disposition home or self-care (01) ==
LOC: WHH 08:10
PROVIDERS: ATTEND Podiatrist Foot & Ankle Surgery
DX: E11.621 Type 2 diabetes mellitus with foot ulcer (principal); L97.522 Non-pressure chronic ulcer of other part of left foot with fat layer exposed; T87.44 Infection of amputation stump, left lower extremity; I70.245 Atherosclerosis of native arteries of left leg with ulceration of other part of foot; E11.52 Type 2 diabetes mellitus with diabetic peripheral angiopathy with gangrene; I96 Gangrene, not elsewhere classified; I25.10 Atherosclerotic heart disease of native coronary artery without angina pectoris; I11.0 Hypertensive heart disease with heart failure; I50.23 Acute on chronic systolic (congestive) heart failure; E11.39 Type 2 diabetes mellitus with other diabetic ophthalmic complication; E11.42 Type 2 diabetes mellitus with diabetic polyneuropathy; E11.36 Type 2 diabetes mellitus with diabetic cataract; H26.8 Other specified cataract; E78.5 Hyperlipidemia, unspecified; I25.2 Old myocardial infarction; I25.5 Ischemic cardiomyopathy; F17.210 Nicotine dependence, cigarettes, uncomplicated; Z79.84 Long term (current) use of oral hypoglycemic drugs; Z79.02 Long term (current) use of antithrombotics/antiplatelets; Z79.899 Other long term (current) drug therapy; Z95.1 Presence of aortocoronary bypass graft; Y83.5 Amputation of limb(s) as the cause of abnormal reaction of the patient, or of later complication, without mention of misadventure at the time of the procedure
CPT/HCPCS: 11042; 73630; 87070; 87077; 87186

== ENCOUNTER → 2021-04-08 | Outpatient (CLI) | payer OTHER ==
[~2021-04-08] MED LIST changes: +TRAM50TA4 PO
== END | disposition home or self-care (01) ==
LOC: WHH 08:14
PROVIDERS: ATTEND Podiatrist Foot & Ankle Surgery
DX: E11.621 Type 2 diabetes mellitus with foot ulcer (principal); I70.245 Atherosclerosis of native arteries of left leg with ulceration of other part of foot; L97.522 Non-pressure chronic ulcer of other part of left foot with fat layer exposed; I70.235 Atherosclerosis of native arteries of right leg with ulceration of other part of foot; L97.512 Non-pressure chronic ulcer of other part of right foot with fat layer exposed; E11.52 Type 2 diabetes mellitus with diabetic peripheral angiopathy with gangrene; I96 Gangrene, not elsewhere classified; I25.10 Atherosclerotic heart disease of native coronary artery without angina pectoris; I11.0 Hypertensive heart disease with heart failure; I50.23 Acute on chronic systolic (congestive) heart failure; E11.39 Type 2 diabetes mellitus with other diabetic ophthalmic complication; E11.42 Type 2 diabetes mellitus with diabetic polyneuropathy; E11.36 Type 2 diabetes mellitus with diabetic cataract; H26.8 Other specified cataract; E78.5 Hyperlipidemia, unspecified; I25.2 Old myocardial infarction; I25.5 Ischemic cardiomyopathy; F17.210 Nicotine dependence, cigarettes, uncomplicated; Z79.84 Long term (current) use of oral hypoglycemic drugs; Z79.02 Long term (current) use of antithrombotics/antiplatelets; Z79.899 Other long term (current) drug therapy; Z95.1 Presence of aortocoronary bypass graft
CPT/HCPCS: 11042; 73630; A4450

== ENCOUNTER 2021-04-13 08:04 | Day surgery (SDC) | payer OTHER ==
[2021-04-09 10:00] LABS: BASOPHILS % (AUTO) 0.5 % (0.0-5.0); EOSINOPHILS % (AUTO) 2.4 % (0.0-8.0); HEMATOCRIT 37.3 % (42-54); LYMPHOCYTES % (AUTO) 24.2 % (21.0-51.0); MEAN CORPUSCULAR HEMOGLOBIN 27.5 pg (27.0-33.0); MEAN CORPUSCULAR HGB CONC 31.9 g/dL (32.0-36.0); MEAN CORPUSCULAR VOLUME 86.1 fL (79-99); MONOCYTES % (AUTO) 9.1 % (3.0-13.0); NEUTROPHILS % (AUTO) 63.4 % (40.0-77.0); PLATELET COUNT (AUTO) 249 K/uL (130-400); RED BLOOD CELL COUNT(AUTO) 4.33 MIL/uL (4.50-6.20); RED CELL DISTRIBUTION WIDTH 16.2 % (11.0-15.5); WHITE BLOOD COUNT (AUTO) 7.8 K/uL (4.8-10.8)
[2021-04-09 10:26] LABS: CREATININE 1.5 mg/dL (0.5-1.5); POTASSIUM 5.8 mmol/L (3.5-5.1)
[2021-04-09 10:36] LABS: INR 1.08 (0.85-1.15); PROTHROMBIN TIME 11.7 SEC (9.6-11.6)
[2021-04-09 10:37] LABS: PARTIAL THROMBOPLASTIN TIME 28.8 SEC (26.3-35.5)
[2021-04-10 12:51] VITALS: BP 124/59
[~2021-04-13] VITALS: Ht 172.7 cm; Wt 77.3 kg
[2021-04-13] VITALS (10 sets, daily range): BP systolic 71–110; BP diastolic 25–92
[~2021-04-13 08:04] MED LIST changes: -AEC81 PO; -ALBUTEROL INHALER; -ASCO100031 PO; +CEFAZOLIN SODIUM 1 GM VIAL IVP SCH; -CLOP75TA32 PO; -FAMO20TA8 PO; -FLUT15.845 NS; -LIDOCAINE HCL 4% LTA SOL 4 ML VIAL TP ONE; -PRAS10TA9 PO; -TRAM50TA4 PO
[2021-04-13] MEDS ORDERED: 0.9%NACL 1000ML 1,000 ML IV ONE (08:26)
[2021-04-13] MEDS ORDERED: BUPIVACAINE/PF 0.25% 30ML VIAL IJ ONE (08:45)
[2021-04-13] MEDS ORDERED: IOHEXOL-350 50ML VIAL IV ONE (08:45)
[2021-04-13] MEDS ORDERED: LIDOCAINE HCL 1% MDV 50ML VIAL ONE (08:46)
[2021-04-13] MEDS ORDERED: MIDAZOLAM HCL 1 MG/ML 2ML VIAL ONE ×3 (08:46→09:50)
[2021-04-13] MEDS ORDERED: MEPERIDINE-PF 25 MG/ML SYG ONE ×3 (08:46→09:50)
[2021-04-13] MEDS ORDERED: ACETAMINOPHEN WITH CODEINE 1 TAB TAB PO PRN (10:30)
[2021-04-13] MEDS ORDERED: TRAM50TA4 PO (10:38)
[2021-04-13] MEDS ORDERED: FURO40TA5 PO (12:16)
[2021-04-13] MEDS ORDERED: 0.9% NACL 500ML IV.SOLN 500 ML IV ONE (12:20)
== END 2021-04-13 15:00 | disposition home or self-care (01) ==
LOC: DAH 08:04
PROVIDERS: ATTEND Internal Medicine Cardiovascular Disease
DX: I25.5 Ischemic cardiomyopathy (principal); I11.0 Hypertensive heart disease with heart failure; I50.42 Chronic combined systolic (congestive) and diastolic (congestive) heart failure; E11.51 Type 2 diabetes mellitus with diabetic peripheral angiopathy without gangrene; E11.49 Type 2 diabetes mellitus with other diabetic neurological complication; I25.10 Atherosclerotic heart disease of native coronary artery without angina pectoris; Z95.0 Presence of cardiac pacemaker; Z79.01 Long term (current) use of anticoagulants; Z79.899 Other long term (current) drug therapy; Z98.890 Other specified postprocedural states; Z79.82 Long term (current) use of aspirin
CPT/HCPCS: 33249; 36415 ×2; 71045; 80048; 82948 ×2; 84132; 85025; 85610; 85730; 93005; A4215; A4216; A4221; A4222; A4223 ×3; A4606; A4663; C1722; C1895; J0690; J2175 ×3; J2250 ×3; J3490 ×2; J7030; J7040; Q9967; 99156; 99157

== ENCOUNTER 2021-04-15 12:53 | Inpatient (IN) | payer OTHER ==
[~2021-04-15] VITALS: Ht 175.3 cm; Wt 75.7 kg
[~2021-04-15 12:53] MED LIST changes: -LIDOCAINE HCL 4% LTA SOL 4 ML VIAL TP ONE; +LISI2.5T13 PO; -LISI2.5T2 PO
[2021-04-15 13:30] VITALS: BP 110/38
[2021-04-15 13:58] LABS: HEMATOCRIT 36.9 % (42-54); MEAN CORPUSCULAR HEMOGLOBIN 27.9 pg (27.0-33.0); MEAN CORPUSCULAR HGB CONC 32.2 g/dL (32.0-36.0); MEAN CORPUSCULAR VOLUME 86.4 fL (79-99); RED BLOOD CELL COUNT(AUTO) 4.27 MIL/uL (4.50-6.20); RED CELL DISTRIBUTION WIDTH 15.7 % (11.0-15.5); WHITE BLOOD COUNT (AUTO) 7.7 K/uL (4.8-10.8)
[2021-04-15] MEDS ORDERED: VANCOMYCIN PROTOCOL PER PHARMACY IV SCH (14:00)
[2021-04-15] MEDS ORDERED: PHARMACY COMMUNICATION MISC SCH (14:00)
[2021-04-15 14:12] LABS: ALBUMIN 3.5 g/dL (3.5-5.0); BILIRUBIN,TOTAL 0.3 mg/dL (0.2-1.0); CREATININE 1.2 mg/dL (0.5-1.5); CRP QUANTITATIVE 45.3 mg/L (0.00-9.0); HEMOGLOBIN A1C 7.4 % (4.0-6.0); POTASSIUM 4.2 mmol/L (3.5-5.1); TOTAL PROTEIN, SERUM 7.3 g/dL (6.0-8.3)
[2021-04-15] MEDS: ZOSYN 3.375GM+NS 50ML 50 ML IV SCH ×2 (15:27→21:52)
[2021-04-15 16:00] VITALS: BP 102/55
[2021-04-15] MEDS ORDERED: VANCOMYCIN 1.5GM/NS 250ML IV ONE ×2 (17:00)
[2021-04-15 19:00] VITALS: BP 126/65
[2021-04-15] MEDS: INSULIN HUMULIN R 100 UNIT/ML 3ML SQ SCH (20:46)
[2021-04-16 01:28] VITALS: BP 119/66
[2021-04-16 04:00] VITALS: BP 120/82
[2021-04-16] MEDS ORDERED: MORPHINE 2 MG SYG ONE (04:24)
[2021-04-16] MEDS ORDERED: MORPHINE 2 MG SYG IM ONE (04:30)
[2021-04-16] MEDS: VANCOMYCIN IV SCH ×2 (05:53→17:38)
[2021-04-16] MEDS: ZOSYN 3.375GM+NS 50ML 50 ML IV SCH ×3 (05:53→23:29)
[2021-04-16] MEDS: 0.9% NACL 250ML 250 ML IV SCH ×2 (05:53→18:06)
[2021-04-16] MEDS: INSULIN HUMULIN R 100 UNIT/ML 3ML SQ SCH ×4 (06:31→23:32)
[2021-04-16 07:37] VITALS: BP 105/55
[2021-04-16 10:11] LABS: BASOPHILS % (AUTO) 0.5 % (0.0-5.0); EOSINOPHILS % (AUTO) 2.5 % (0.0-8.0); HEMATOCRIT 33.9 % (42-54); LYMPHOCYTES % (AUTO) 21.7 % (21.0-51.0); MEAN CORPUSCULAR HEMOGLOBIN 27.4 pg (27.0-33.0); MEAN CORPUSCULAR HGB CONC 32.2 g/dL (32.0-36.0); MEAN CORPUSCULAR VOLUME 85.2 fL (79-99); MONOCYTES % (AUTO) 13.2 % (3.0-13.0); NEUTROPHILS % (AUTO) 61.8 % (40.0-77.0); PLATELET COUNT (AUTO) 195 K/uL (130-400); RED BLOOD CELL COUNT(AUTO) 3.98 MIL/uL (4.50-6.20); RED CELL DISTRIBUTION WIDTH 15.5 % (11.0-15.5); WHITE BLOOD COUNT (AUTO) 8.7 K/uL (4.8-10.8)
[2021-04-16 10:27] LABS: BILIRUBIN,TOTAL 0.4 mg/dL (0.2-1.0); CREATININE 1.2 mg/dL (0.5-1.5); MAGNESIUM 2.1 mg/dL (1.80-2.40); POTASSIUM 3.9 mmol/L (3.5-5.1); TOTAL PROTEIN, SERUM 6.4 g/dL (6.0-8.3)
[2021-04-16 11:02] VITALS: BP 112/54
[2021-04-16] MEDS: AMIODARONE 200 MG TABLET PO SCH (11:05)
[2021-04-16] MEDS ORDERED: ASPIRIN 81MG CHEW TAB PO ONE (14:00)
[2021-04-16 16:01] VITALS: BP 98/54
[2021-04-16] MEDS ORDERED: IOHEXOL-350 75 ML VIAL IV ONE (17:17)
[2021-04-16 19:00] VITALS: BP 141/63
[2021-04-16] MEDS: HYDROCODONE/ACETAMINOPHEN 5/325 MG TAB PO PRN (20:23)
[2021-04-16] MEDS: METOPROLOL TARTRATE 25 MG TAB PO SCH (23:30)
[2021-04-17] VITALS: BP 129/64
[2021-04-17 04:00] VITALS: BP 128/60
[2021-04-17] MEDS: VANCOMYCIN IV SCH ×2 (06:54→18:16)
[2021-04-17] MEDS: 0.9% NACL 250ML 250 ML IV SCH ×2 (06:54→18:16)
[2021-04-17] MEDS: ZOSYN 3.375GM+NS 50ML 50 ML IV SCH ×3 (06:55→22:18)
[2021-04-17 08:00] VITALS: BP 119/58
[2021-04-17] MEDS: **HM**(Empagliflozin (Jardiance) 25 MG PO SCH (09:00)
[2021-04-17] MEDS ORDERED: AMIODARONE 200 MG TABLET PO SCH (09:00)
[2021-04-17] MEDS: LISINOPRIL 2.5 MG TABLET PO SCH (09:36)
[2021-04-17] MEDS: METOPROLOL TARTRATE 25 MG TAB PO SCH ×2 (09:36→22:52)
[2021-04-17] MEDS: AMIODARONE 200 MG TABLET PO SCH (09:36)
[2021-04-17] MEDS: ATORVASTATIN 40 MG TABLET PO SCH (09:36)
[2021-04-17] MEDS: FUROSEMIDE 40 MG TABLET PO SCH (09:36)
[2021-04-17] MEDS: ASPIRIN 81MG CHEW TAB PO SCH (09:37)
[2021-04-17] MEDS: INSULIN HUMULIN R 100 UNIT/ML 3ML SQ SCH ×3 (11:30→22:03)
[2021-04-17 12:00] VITALS: BP 122/60
[2021-04-17] MEDS: HYDROCODONE/ACETAMINOPHEN 5/325 MG TAB PO PRN (14:52)
[2021-04-17 16:00] VITALS: BP 115/55
[2021-04-17 20:00] VITALS: BP 115/53
[2021-04-18] VITALS: BP 131/60
[2021-04-18 04:00] VITALS: BP 121/64
[2021-04-18 05:37] LABS: BASOPHILS % (AUTO) 0.5 % (0.0-5.0); EOSINOPHILS % (AUTO) 3.9 % (0.0-8.0); HEMATOCRIT 35.1 % (42-54); LYMPHOCYTES % (AUTO) 24.8 % (21.0-51.0); MEAN CORPUSCULAR HEMOGLOBIN 27.4 pg (27.0-33.0); MEAN CORPUSCULAR HGB CONC 31.3 g/dL (32.0-36.0); MEAN CORPUSCULAR VOLUME 87.5 fL (79-99); MONOCYTES % (AUTO) 11.7 % (3.0-13.0); NEUTROPHILS % (AUTO) 58.9 % (40.0-77.0); PLATELET COUNT (AUTO) 190 K/uL (130-400); RED BLOOD CELL COUNT(AUTO) 4.01 MIL/uL (4.50-6.20); RED CELL DISTRIBUTION WIDTH 15.4 % (11.0-15.5); WHITE BLOOD COUNT (AUTO) 8.4 K/uL (4.8-10.8)
[2021-04-18 05:48] LABS: CREATININE 1.1 mg/dL (0.5-1.5); POTASSIUM 3.7 mmol/L (3.5-5.1)
[2021-04-18] MEDS: ZOSYN 3.375GM+NS 50ML 50 ML IV SCH ×3 (06:23→21:02)
[2021-04-18] MEDS: VANCOMYCIN IV SCH ×2 (06:23→18:05)
[2021-04-18] MEDS: 0.9% NACL 250ML 250 ML IV SCH ×2 (06:23→18:05)
[2021-04-18] MEDS: INSULIN HUMULIN R 100 UNIT/ML 3ML SQ SCH ×4 (07:30→20:57)
[2021-04-18 08:00] VITALS: BP 102/32
[2021-04-18] MEDS: LISINOPRIL 2.5 MG TABLET PO SCH (09:00)
[2021-04-18] MEDS: **HM**(Empagliflozin (Jardiance) 25 MG PO SCH (09:00)
[2021-04-18] MEDS: METOPROLOL TARTRATE 25 MG TAB PO SCH ×2 (09:00→21:00)
[2021-04-18] MEDS: ASPIRIN 81MG CHEW TAB PO SCH (09:44)
[2021-04-18] MEDS: ATORVASTATIN 40 MG TABLET PO SCH (09:44)
[2021-04-18] MEDS: AMIODARONE 200 MG TABLET PO SCH (09:44)
[2021-04-18] MEDS: FUROSEMIDE 40 MG TABLET PO SCH (09:45)
[2021-04-18 12:00] VITALS: BP 101/41
[2021-04-18 16:00] VITALS: BP 110/42
[2021-04-18 20:00] VITALS: BP 129/58
[2021-04-19] VITALS (7 sets, daily range): BP systolic 94–126; BP diastolic 53–70
[2021-04-19 05:23] LABS: BASOPHILS % (AUTO) 0.4 % (0.0-5.0); EOSINOPHILS % (AUTO) 3.9 % (0.0-8.0); HEMATOCRIT 35.6 % (42-54); LYMPHOCYTES % (AUTO) 26.3 % (21.0-51.0); MEAN CORPUSCULAR HEMOGLOBIN 27.3 pg (27.0-33.0); MEAN CORPUSCULAR VOLUME 85.4 fL (79-99); NEUTROPHILS % (AUTO) 57.1 % (40.0-77.0); PLATELET COUNT (AUTO) 175 K/uL (130-400); RED BLOOD CELL COUNT(AUTO) 4.17 MIL/uL (4.50-6.20); RED CELL DISTRIBUTION WIDTH 15.1 % (11.0-15.5); WHITE BLOOD COUNT (AUTO) 7.4 K/uL (4.8-10.8)
[2021-04-19] MEDS: 0.9% NACL 250ML 250 ML IV SCH ×2 (05:44→18:24)
[2021-04-19] MEDS: VANCOMYCIN IV SCH (05:44)
[2021-04-19] MEDS: ZOSYN 3.375GM+NS 50ML 50 ML IV SCH ×3 (05:44→21:25)
[2021-04-19] MEDS: INSULIN HUMULIN R 100 UNIT/ML 3ML SQ SCH ×4 (06:54→21:00)
[2021-04-19] MEDS: **HM**(Empagliflozin (Jardiance) 25 MG PO SCH (09:00)
[2021-04-19] MEDS: ATORVASTATIN 40 MG TABLET PO SCH (09:19)
[2021-04-19] MEDS: METOPROLOL TARTRATE 25 MG TAB PO SCH ×2 (09:19→23:25)
[2021-04-19] MEDS: AMIODARONE 200 MG TABLET PO SCH (09:19)
[2021-04-19] MEDS: FUROSEMIDE 40 MG TABLET PO SCH (09:19)
[2021-04-19] MEDS: LISINOPRIL 2.5 MG TABLET PO SCH (09:20)
[2021-04-19] MEDS: ASPIRIN 81MG CHEW TAB PO SCH (09:20)
[2021-04-19] MEDS ORDERED: VANCOMYCIN 750MG VIAL ONE (18:04)
[2021-04-19] MEDS: VANCOMYCIN 750MG VIAL IVPB SCH (18:24)
[2021-04-20] VITALS (20 sets, daily range): BP systolic 96–118; BP diastolic 44–70
[2021-04-20 04:28] LABS: BASOPHILS % (AUTO) 0.4 % (0.0-5.0); HEMATOCRIT 34.6 % (42-54); LYMPHOCYTES % (AUTO) 23.1 % (21.0-51.0); MEAN CORPUSCULAR HEMOGLOBIN 27.5 pg (27.0-33.0); MEAN CORPUSCULAR HGB CONC 32.4 g/dL (32.0-36.0); MEAN CORPUSCULAR VOLUME 84.8 fL (79-99); MONOCYTES % (AUTO) 12.6 % (3.0-13.0); NEUTROPHILS % (AUTO) 60.6 % (40.0-77.0); PLATELET COUNT (AUTO) 178 K/uL (130-400); RED BLOOD CELL COUNT(AUTO) 4.08 MIL/uL (4.50-6.20); WHITE BLOOD COUNT (AUTO) 7.7 K/uL (4.8-10.8)
[2021-04-20 04:41] LABS: INR 1.14 (0.85-1.15); PROTHROMBIN TIME 12.3 SEC (9.6-11.6)
[2021-04-20 04:42] LABS: PARTIAL THROMBOPLASTIN TIME 28.3 SEC (26.3-35.5)
[2021-04-20 04:50] LABS: CREATININE 1.1 mg/dL (0.5-1.5); POTASSIUM 3.9 mmol/L (3.5-5.1)
[2021-04-20] MEDS ORDERED: LIDOCAINE HCL 1% 20 ML VIAL ONE (06:14)
[2021-04-20] MEDS ORDERED: BUPIVACAINE/PF 0.5% 30ML VIAL ONE (06:14)
[2021-04-20] MEDS: INSULIN HUMULIN R 100 UNIT/ML 3ML SQ SCH ×4 (06:15→22:03)
[2021-04-20] MEDS: ZOSYN 3.375GM+NS 50ML 50 ML IV SCH ×3 (06:16→22:07)
[2021-04-20] MEDS: VANCOMYCIN 750MG VIAL IVPB SCH ×2 (06:16→17:50)
[2021-04-20] MEDS: 0.9% NACL 250ML 250 ML IV SCH ×2 (06:16→17:51)
[2021-04-20] MEDS ORDERED: LIDOCAINE HCL MPF 1% 5ML VIAL ONE (07:03)
[2021-04-20] MEDS ORDERED: PROPOFOL 10 MG/ML 20ML VIAL IV ONE ×2 (07:03→07:15)
[2021-04-20] MEDS ORDERED: FENTANYL CITRATE PF 50 MCG/1 ML 2ML VIAL ONE (07:20)
[2021-04-20] MEDS ORDERED: EPHEDRINE SULFATE 50 MG/ML AMPULE ONE (07:22)
[2021-04-20] MEDS ORDERED: ONDANSETRON 4MG INJ ONE (07:58)
[2021-04-20] MEDS: **HM**(Empagliflozin (Jardiance) 25 MG PO SCH (09:00)
[2021-04-20] MEDS: ASPIRIN 81MG CHEW TAB PO SCH (10:22)
[2021-04-20] MEDS: ATORVASTATIN 40 MG TABLET PO SCH (10:22)
[2021-04-20] MEDS: FUROSEMIDE 40 MG TABLET PO SCH (10:22)
[2021-04-20] MEDS: METOPROLOL TARTRATE 25 MG TAB PO SCH ×2 (10:22→22:08)
[2021-04-20] MEDS: LISINOPRIL 2.5 MG TABLET PO SCH (10:23)
[2021-04-20] MEDS: AMIODARONE 200 MG TABLET PO SCH (10:23)
[2021-04-21] VITALS: BP 117/55
[2021-04-21] MEDS: HYDROCODONE/ACETAMINOPHEN 5/325 MG TAB PO PRN ×3 (03:38→15:16)
[2021-04-21 04:00] VITALS: BP 113/54
[2021-04-21 05:52] LABS: BASOPHILS % (AUTO) 0.4 % (0.0-5.0); EOSINOPHILS % (AUTO) 1.6 % (0.0-8.0); HEMATOCRIT 30.9 % (42-54); MEAN CORPUSCULAR HEMOGLOBIN 27.9 pg (27.0-33.0); MEAN CORPUSCULAR VOLUME 84.4 fL (79-99); MONOCYTES % (AUTO) 9.8 % (3.0-13.0); NEUTROPHILS % (AUTO) 75.7 % (40.0-77.0); PLATELET COUNT (AUTO) 172 K/uL (130-400); RED BLOOD CELL COUNT(AUTO) 3.66 MIL/uL (4.50-6.20); WHITE BLOOD COUNT (AUTO) 10.9 K/uL (4.8-10.8)
[2021-04-21] MEDS: INSULIN HUMULIN R 100 UNIT/ML 3ML SQ SCH ×4 (06:00→20:49)
[2021-04-21 06:14] LABS: CREATININE 1.1 mg/dL (0.5-1.5); POTASSIUM 3.9 mmol/L (3.5-5.1)
[2021-04-21] MEDS: 0.9% NACL 250ML 250 ML IV SCH ×2 (06:36→18:04)
[2021-04-21] MEDS: ZOSYN 3.375GM+NS 50ML 50 ML IV SCH ×3 (06:36→20:29)
[2021-04-21] MEDS: VANCOMYCIN 750MG VIAL IVPB SCH ×2 (06:36→18:00)
[2021-04-21 08:00] VITALS: BP 108/58
[2021-04-21] MEDS ORDERED: MORPHINE 2 MG SYG ONE (08:50)
[2021-04-21] MEDS: **HM**(Empagliflozin (Jardiance) 25 MG PO SCH (09:00)
[2021-04-21] MEDS: MORPHINE 2 MG SYG IVP PRN ×4 (09:07→20:39)
[2021-04-21] MEDS: FUROSEMIDE 40 MG TABLET PO SCH (09:13)
[2021-04-21] MEDS: LISINOPRIL 2.5 MG TABLET PO SCH (09:13)
[2021-04-21] MEDS: ASPIRIN 81MG CHEW TAB PO SCH (09:13)
[2021-04-21] MEDS: METOPROLOL TARTRATE 25 MG TAB PO SCH ×2 (09:13→20:29)
[2021-04-21] MEDS: ATORVASTATIN 40 MG TABLET PO SCH (09:14)
[2021-04-21] MEDS: AMIODARONE 200 MG TABLET PO SCH (09:14)
[2021-04-21] MEDS ORDERED: INSULIN GLARGINE 100 UNITS/ML 10 ML VIAL SQ SCH (10:00)
[2021-04-21 12:00] VITALS: BP 99/57
[2021-04-21 17:03] VITALS: BP 122/70
[2021-04-21 20:19] VITALS: BP 111/58
[2021-04-21] MEDS ORDERED: HYDROCODONE/ACETAMINOPHEN 5/325 MG TAB PO PRN (20:30)
[2021-04-22 00:22] VITALS: BP 131/94
[2021-04-22] MEDS: MORPHINE 2 MG SYG IVP PRN (02:27)
[2021-04-22 03:53] VITALS: BP 133/68
[2021-04-22] MEDS: VANCOMYCIN 750MG VIAL IVPB SCH ×2 (05:33→17:26)
[2021-04-22] MEDS: 0.9% NACL 250ML 250 ML IV SCH ×2 (05:34→17:26)
[2021-04-22] MEDS: ZOSYN 3.375GM+NS 50ML 50 ML IV SCH ×3 (05:34→19:48)
[2021-04-22] MEDS: INSULIN HUMULIN R 100 UNIT/ML 3ML SQ SCH ×4 (06:11→21:13)
[2021-04-22 06:16] LABS: BASOPHILS % (AUTO) 0.3 % (0.0-5.0); EOSINOPHILS % (AUTO) 1.4 % (0.0-8.0); HEMATOCRIT 33.5 % (42-54); LYMPHOCYTES % (AUTO) 17.1 % (21.0-51.0); MEAN CORPUSCULAR HEMOGLOBIN 27.8 pg (27.0-33.0); MEAN CORPUSCULAR HGB CONC 31.9 g/dL (32.0-36.0); MONOCYTES % (AUTO) 12.2 % (3.0-13.0); NEUTROPHILS % (AUTO) 68.7 % (40.0-77.0); PLATELET COUNT (AUTO) 169 K/uL (130-400); RED BLOOD CELL COUNT(AUTO) 3.85 MIL/uL (4.50-6.20); RED CELL DISTRIBUTION WIDTH 15.1 % (11.0-15.5); WHITE BLOOD COUNT (AUTO) 10.9 K/uL (4.8-10.8)
[2021-04-22 06:28] LABS: CREATININE 1.1 mg/dL (0.5-1.5)
[2021-04-22 07:30] VITALS: BP 150/66
[2021-04-22] MEDS: ASPIRIN 81MG CHEW TAB PO SCH (08:51)
[2021-04-22] MEDS: FUROSEMIDE 40 MG TABLET PO SCH (08:51)
[2021-04-22] MEDS: ATORVASTATIN 40 MG TABLET PO SCH (08:52)
[2021-04-22] MEDS: **HM**(Empagliflozin (Jardiance) 25 MG PO SCH (08:52)
[2021-04-22] MEDS: LISINOPRIL 2.5 MG TABLET PO SCH (08:52)
[2021-04-22] MEDS: METOPROLOL TARTRATE 25 MG TAB PO SCH ×2 (08:52→19:48)
[2021-04-22] MEDS: AMIODARONE 200 MG TABLET PO SCH (08:52)
[2021-04-22] MEDS ORDERED: INSULIN GLARGINE 100 UNITS/ML 10 ML VIAL SQ SCH (09:00)
[2021-04-22 11:00] VITALS: BP 121/48
[2021-04-22 16:00] VITALS: BP 109/55
[2021-04-22 20:12] VITALS: BP 116/60
== END 2021-04-22 22:57 | DRG 475 ==
LOC: 3BH 13:05 → 3CH 13:28
PROVIDERS: ADMIT Internal Medicine; ATTEND Internal Medicine
PROC: 0Y6N0ZB Detachment at Left Foot, Partial 2nd Ray, Open Approach (ICD-10-PCS; 2021-04-20)
PROC: 0Y6N0ZC Detachment at Left Foot, Partial 3rd Ray, Open Approach (ICD-10-PCS; 2021-04-20)
PROC: 0Y6N0ZD Detachment at Left Foot, Partial 4th Ray, Open Approach (ICD-10-PCS; 2021-04-20)
PROC: 0Y6N0ZF Detachment at Left Foot, Partial 5th Ray, Open Approach (ICD-10-PCS; 2021-04-20)
PROC: 0Y6N0Z9 Detachment at Left Foot, Partial 1st Ray, Open Approach (ICD-10-PCS; principal; 2021-04-20 07:19)
DX: T87.44 Infection of amputation stump, left lower extremity (principal); L03.116 Cellulitis of left lower limb; I48.20 Chronic atrial fibrillation, unspecified; M86.8X7 Other osteomyelitis, ankle and foot; T87.81 Dehiscence of amputation stump; L97.529 Non-pressure chronic ulcer of other part of left foot with unspecified severity; E11.51 Type 2 diabetes mellitus with diabetic peripheral angiopathy without gangrene; E11.621 Type 2 diabetes mellitus with foot ulcer; E11.69 Type 2 diabetes mellitus with other specified complication; E78.5 Hyperlipidemia, unspecified; I11.0 Hypertensive heart disease with heart failure; Z20.822 Contact with and (suspected) exposure to COVID-19; R53.81 Other malaise; Y83.5 Amputation of limb(s) as the cause of abnormal reaction of the patient, or of later complication, without mention of misadventure at the time of the procedure; Y92.89 Other specified places as the place of occurrence of the external cause; Z87.891 Personal history of nicotine dependence; Z89.432 Acquired absence of left foot; Z95.0 Presence of cardiac pacemaker; Z95.810 Presence of automatic (implantable) cardiac defibrillator; Z82.3 Family history of stroke; Z83.3 Family history of diabetes mellitus; Z81.1 Family history of alcohol abuse and dependence; Z82.49 Family history of ischemic heart disease and other diseases of the circulatory system
CPT/HCPCS: 36415; 73620; 73701; 80048; 80053; 80202; 82948; 83036; 83735; 84145; 85025; 85027; 85610; 85651; 85730; 86140; 87070; 87076; 87077; 87186; 87205; 87635; 93005; G0378; J1815; J2405; J2543; J2704; J3010; J3370; J3490; J7030; J7050; Q9967

== ENCOUNTER → 2021-04-15 | Outpatient (CLI) | payer OTHER ==
[~2021-04-15] MED LIST changes: -CEFAZOLIN SODIUM 1 GM VIAL IVP SCH; +LIDOCAINE HCL 4% LTA SOL 4 ML VIAL TP ONE; +TRAM50TA4 PO
== END | disposition home or self-care (01) ==
LOC: WHH 11:05
PROVIDERS: ATTEND Podiatrist Foot & Ankle Surgery
DX: T87.44 Infection of amputation stump, left lower extremity (principal); E11.621 Type 2 diabetes mellitus with foot ulcer; I70.245 Atherosclerosis of native arteries of left leg with ulceration of other part of foot; L97.522 Non-pressure chronic ulcer of other part of left foot with fat layer exposed; I70.235 Atherosclerosis of native arteries of right leg with ulceration of other part of foot; L97.512 Non-pressure chronic ulcer of other part of right foot with fat layer exposed; E11.52 Type 2 diabetes mellitus with diabetic peripheral angiopathy with gangrene; I96 Gangrene, not elsewhere classified; I25.10 Atherosclerotic heart disease of native coronary artery without angina pectoris; I11.0 Hypertensive heart disease with heart failure; I50.23 Acute on chronic systolic (congestive) heart failure; E11.39 Type 2 diabetes mellitus with other diabetic ophthalmic complication; E11.42 Type 2 diabetes mellitus with diabetic polyneuropathy; E11.36 Type 2 diabetes mellitus with diabetic cataract; H26.8 Other specified cataract; E78.5 Hyperlipidemia, unspecified; I25.2 Old myocardial infarction; I25.5 Ischemic cardiomyopathy; F17.210 Nicotine dependence, cigarettes, uncomplicated; Z79.84 Long term (current) use of oral hypoglycemic drugs; Y83.5 Amputation of limb(s) as the cause of abnormal reaction of the patient, or of later complication, without mention of misadventure at the time of the procedure
CPT/HCPCS: 11042; 11045; 87070; 87077; 87186; A4450

== ENCOUNTER → 2021-07-22 | Outpatient (CLI) | payer OTHER ==
[~2021-07-22] MED LIST changes: -AMIO200T6 PO; +AMIO200T68 PO; +LIDOCAINE HCL 4% LTA SOL 4 ML VIAL TP ONE
== END | disposition home or self-care (01) ==
LOC: WHH 08:02
PROVIDERS: ATTEND Podiatrist Foot & Ankle Surgery
DX: T87.81 Dehiscence of amputation stump (principal); E11.621 Type 2 diabetes mellitus with foot ulcer; I70.245 Atherosclerosis of native arteries of left leg with ulceration of other part of foot; L97.522 Non-pressure chronic ulcer of other part of left foot with fat layer exposed; E11.622 Type 2 diabetes mellitus with other skin ulcer; I70.233 Atherosclerosis of native arteries of right leg with ulceration of ankle; E11.51 Type 2 diabetes mellitus with diabetic peripheral angiopathy without gangrene; I25.110 Atherosclerotic heart disease of native coronary artery with unstable angina pectoris; I11.0 Hypertensive heart disease with heart failure; I50.23 Acute on chronic systolic (congestive) heart failure; E78.5 Hyperlipidemia, unspecified; F17.210 Nicotine dependence, cigarettes, uncomplicated; Z95.1 Presence of aortocoronary bypass graft; Y83.5 Amputation of limb(s) as the cause of abnormal reaction of the patient, or of later complication, without mention of misadventure at the time of the procedure
CPT/HCPCS: 15275; 15276; A6209; Q4101

== ENCOUNTER → 2021-07-29 | Outpatient (CLI) | payer OTHER ==
[~2021-07-29] MED LIST changes: -LIDOCAINE HCL 4% LTA SOL 4 ML VIAL TP ONE
== END | disposition home or self-care (01) ==
LOC: WHH 08:11
PROVIDERS: ATTEND Podiatrist Foot & Ankle Surgery
DX: T87.81 Dehiscence of amputation stump (principal); E11.621 Type 2 diabetes mellitus with foot ulcer; I70.245 Atherosclerosis of native arteries of left leg with ulceration of other part of foot; L97.522 Non-pressure chronic ulcer of other part of left foot with fat layer exposed; E11.622 Type 2 diabetes mellitus with other skin ulcer; I70.233 Atherosclerosis of native arteries of right leg with ulceration of ankle; L97.312 Non-pressure chronic ulcer of right ankle with fat layer exposed; E11.51 Type 2 diabetes mellitus with diabetic peripheral angiopathy without gangrene; I25.110 Atherosclerotic heart disease of native coronary artery with unstable angina pectoris; I11.0 Hypertensive heart disease with heart failure; I50.23 Acute on chronic systolic (congestive) heart failure; E78.5 Hyperlipidemia, unspecified; F17.210 Nicotine dependence, cigarettes, uncomplicated; Z95.1 Presence of aortocoronary bypass graft; Y83.5 Amputation of limb(s) as the cause of abnormal reaction of the patient, or of later complication, without mention of misadventure at the time of the procedure
CPT/HCPCS: 15275; 15276; A6209; Q4101

== ENCOUNTER → 2021-08-05 | Outpatient (CLI) | payer OTHER ==
[~2021-08-05] MED LIST changes: +LIDOCAINE HCL 4% LTA SOL 4 ML VIAL TP ONE
== END | disposition home or self-care (01) ==
LOC: WHH 08:04
PROVIDERS: ATTEND Podiatrist Foot & Ankle Surgery
DX: T87.81 Dehiscence of amputation stump (principal); E11.621 Type 2 diabetes mellitus with foot ulcer; I70.245 Atherosclerosis of native arteries of left leg with ulceration of other part of foot; L97.522 Non-pressure chronic ulcer of other part of left foot with fat layer exposed; E11.622 Type 2 diabetes mellitus with other skin ulcer; I70.233 Atherosclerosis of native arteries of right leg with ulceration of ankle; L97.312 Non-pressure chronic ulcer of right ankle with fat layer exposed; E11.51 Type 2 diabetes mellitus with diabetic peripheral angiopathy without gangrene; I25.110 Atherosclerotic heart disease of native coronary artery with unstable angina pectoris; I11.0 Hypertensive heart disease with heart failure; I50.23 Acute on chronic systolic (congestive) heart failure; E78.5 Hyperlipidemia, unspecified; F17.210 Nicotine dependence, cigarettes, uncomplicated; Z95.1 Presence of aortocoronary bypass graft; Y83.5 Amputation of limb(s) as the cause of abnormal reaction of the patient, or of later complication, without mention of misadventure at the time of the procedure
CPT/HCPCS: 15275; A4450; A6209; Q4101

== ENCOUNTER → 2021-08-12 | Outpatient (CLI) | payer OTHER | END | disposition home or self-care (01) | LOC: WHH 07:52 | PROVIDERS: ATTEND Podiatrist Foot & Ankle Surgery | DX: T87.81 Dehiscence of amputation stump (principal); E11.621 Type 2 diabetes mellitus with foot ulcer; I70.245 Atherosclerosis of native arteries of left leg with ulceration of other part of foot; L97.522 Non-pressure chronic ulcer of other part of left foot with fat layer exposed; E11.622 Type 2 diabetes mellitus with other skin ulcer; I70.233 Atherosclerosis of native arteries of right leg with ulceration of ankle; L97.312 Non-pressure chronic ulcer of right ankle with fat layer exposed; E11.51 Type 2 diabetes mellitus with diabetic peripheral angiopathy without gangrene; I25.110 Atherosclerotic heart disease of native coronary artery with unstable angina pectoris; I11.0 Hypertensive heart disease with heart failure; I50.23 Acute on chronic systolic (congestive) heart failure; E78.5 Hyperlipidemia, unspecified; F17.210 Nicotine dependence, cigarettes, uncomplicated; Z95.1 Presence of aortocoronary bypass graft; Y83.5 Amputation of limb(s) as the cause of abnormal reaction of the patient, or of later complication, without mention of misadventure at the time of the procedure | CPT/HCPCS: 15275; 15276; A6209; Q4101 ==

== ENCOUNTER → 2021-08-19 | Outpatient (CLI) | payer OTHER | END | disposition home or self-care (01) | LOC: WHH 08:15 | PROVIDERS: ATTEND Podiatrist Foot & Ankle Surgery | DX: T87.81 Dehiscence of amputation stump (principal); E11.621 Type 2 diabetes mellitus with foot ulcer; I70.245 Atherosclerosis of native arteries of left leg with ulceration of other part of foot; L97.522 Non-pressure chronic ulcer of other part of left foot with fat layer exposed; E11.622 Type 2 diabetes mellitus with other skin ulcer; I70.233 Atherosclerosis of native arteries of right leg with ulceration of ankle; L97.312 Non-pressure chronic ulcer of right ankle with fat layer exposed; E11.51 Type 2 diabetes mellitus with diabetic peripheral angiopathy without gangrene; I25.110 Atherosclerotic heart disease of native coronary artery with unstable angina pectoris; I11.0 Hypertensive heart disease with heart failure; I50.23 Acute on chronic systolic (congestive) heart failure; E78.5 Hyperlipidemia, unspecified; F17.210 Nicotine dependence, cigarettes, uncomplicated; Z95.1 Presence of aortocoronary bypass graft; Y83.5 Amputation of limb(s) as the cause of abnormal reaction of the patient, or of later complication, without mention of misadventure at the time of the procedure | CPT/HCPCS: 15275; A6209; Q4101 ×2 ==

== ENCOUNTER → 2021-08-26 | Outpatient (CLI) | payer OTHER ==
[~2021-08-26] MED LIST changes: -LIDOCAINE HCL 4% LTA SOL 4 ML VIAL TP ONE
== END | disposition home or self-care (01) ==
LOC: WHH 08:10
PROVIDERS: ATTEND Podiatrist Foot & Ankle Surgery
DX: T86.828 Other complications of skin graft (allograft) (autograft) (principal); T87.81 Dehiscence of amputation stump; E11.621 Type 2 diabetes mellitus with foot ulcer; I70.245 Atherosclerosis of native arteries of left leg with ulceration of other part of foot; L97.522 Non-pressure chronic ulcer of other part of left foot with fat layer exposed; E11.622 Type 2 diabetes mellitus with other skin ulcer; I70.233 Atherosclerosis of native arteries of right leg with ulceration of ankle; L97.312 Non-pressure chronic ulcer of right ankle with fat layer exposed; E11.51 Type 2 diabetes mellitus with diabetic peripheral angiopathy without gangrene; I25.110 Atherosclerotic heart disease of native coronary artery with unstable angina pectoris; I11.0 Hypertensive heart disease with heart failure; I50.23 Acute on chronic systolic (congestive) heart failure; E78.5 Hyperlipidemia, unspecified; F17.210 Nicotine dependence, cigarettes, uncomplicated; Z95.1 Presence of aortocoronary bypass graft; Y83.5 Amputation of limb(s) as the cause of abnormal reaction of the patient, or of later complication, without mention of misadventure at the time of the procedure; Y83.2 Surgical operation with anastomosis, bypass or graft as the cause of abnormal reaction of the patient, or of later complication, without mention of misadventure at the time of the procedure
CPT/HCPCS: G0463

== ENCOUNTER → 2021-09-02 | Outpatient (CLI) | payer OTHER ==
[~2021-09-02] MED LIST changes: +LIDOCAINE HCL 4% LTA SOL 4 ML VIAL TP ONE
== END | disposition home or self-care (01) ==
LOC: WHH 07:58
PROVIDERS: ATTEND Podiatrist Foot & Ankle Surgery
DX: T86.828 Other complications of skin graft (allograft) (autograft) (principal); T87.81 Dehiscence of amputation stump; E11.621 Type 2 diabetes mellitus with foot ulcer; I70.245 Atherosclerosis of native arteries of left leg with ulceration of other part of foot; L97.522 Non-pressure chronic ulcer of other part of left foot with fat layer exposed; E11.622 Type 2 diabetes mellitus with other skin ulcer; I70.233 Atherosclerosis of native arteries of right leg with ulceration of ankle; L97.311 Non-pressure chronic ulcer of right ankle limited to breakdown of skin; E11.51 Type 2 diabetes mellitus with diabetic peripheral angiopathy without gangrene; I25.110 Atherosclerotic heart disease of native coronary artery with unstable angina pectoris; I11.0 Hypertensive heart disease with heart failure; I50.23 Acute on chronic systolic (congestive) heart failure; E78.5 Hyperlipidemia, unspecified; F17.210 Nicotine dependence, cigarettes, uncomplicated; Z95.1 Presence of aortocoronary bypass graft; Y83.5 Amputation of limb(s) as the cause of abnormal reaction of the patient, or of later complication, without mention of misadventure at the time of the procedure; Y83.2 Surgical operation with anastomosis, bypass or graft as the cause of abnormal reaction of the patient, or of later complication, without mention of misadventure at the time of the procedure
CPT/HCPCS: A6209; G0463; L3260

== ENCOUNTER → 2021-09-16 | Outpatient (CLI) | payer OTHER | END | disposition home or self-care (01) | LOC: WHH 08:07 | PROVIDERS: ATTEND Podiatrist Foot & Ankle Surgery | DX: T86.828 Other complications of skin graft (allograft) (autograft) (principal); T87.81 Dehiscence of amputation stump; E11.621 Type 2 diabetes mellitus with foot ulcer; I70.245 Atherosclerosis of native arteries of left leg with ulceration of other part of foot; L97.522 Non-pressure chronic ulcer of other part of left foot with fat layer exposed; E11.622 Type 2 diabetes mellitus with other skin ulcer; I70.233 Atherosclerosis of native arteries of right leg with ulceration of ankle; L97.311 Non-pressure chronic ulcer of right ankle limited to breakdown of skin; E11.51 Type 2 diabetes mellitus with diabetic peripheral angiopathy without gangrene; I25.110 Atherosclerotic heart disease of native coronary artery with unstable angina pectoris; I11.0 Hypertensive heart disease with heart failure; I50.23 Acute on chronic systolic (congestive) heart failure; E78.5 Hyperlipidemia, unspecified; F17.210 Nicotine dependence, cigarettes, uncomplicated; Z95.1 Presence of aortocoronary bypass graft; Y83.5 Amputation of limb(s) as the cause of abnormal reaction of the patient, or of later complication, without mention of misadventure at the time of the procedure; Y83.2 Surgical operation with anastomosis, bypass or graft as the cause of abnormal reaction of the patient, or of later complication, without mention of misadventure at the time of the procedure | CPT/HCPCS: 11042; 87070; 87077; 87186; A4450; A6209 ==

== ENCOUNTER → 2021-09-23 | Outpatient (CLI) | payer OTHER | END | disposition home or self-care (01) | LOC: WHH 08:10 | PROVIDERS: ATTEND Podiatrist Foot & Ankle Surgery | DX: T86.828 Other complications of skin graft (allograft) (autograft) (principal); T87.81 Dehiscence of amputation stump; E11.621 Type 2 diabetes mellitus with foot ulcer; I70.245 Atherosclerosis of native arteries of left leg with ulceration of other part of foot; L97.522 Non-pressure chronic ulcer of other part of left foot with fat layer exposed; E11.622 Type 2 diabetes mellitus with other skin ulcer; I70.233 Atherosclerosis of native arteries of right leg with ulceration of ankle; L97.312 Non-pressure chronic ulcer of right ankle with fat layer exposed; E11.51 Type 2 diabetes mellitus with diabetic peripheral angiopathy without gangrene; I25.110 Atherosclerotic heart disease of native coronary artery with unstable angina pectoris; I11.0 Hypertensive heart disease with heart failure; I50.23 Acute on chronic systolic (congestive) heart failure; E78.5 Hyperlipidemia, unspecified; F17.210 Nicotine dependence, cigarettes, uncomplicated; Z95.1 Presence of aortocoronary bypass graft; Y83.5 Amputation of limb(s) as the cause of abnormal reaction of the patient, or of later complication, without mention of misadventure at the time of the procedure; Y83.2 Surgical operation with anastomosis, bypass or graft as the cause of abnormal reaction of the patient, or of later complication, without mention of misadventure at the time of the procedure | CPT/HCPCS: A6209; G0463 ==

== ENCOUNTER → 2021-09-30 | Outpatient (CLI) | payer OTHER | END | disposition home or self-care (01) | LOC: WHH 08:51 | PROVIDERS: ATTEND Podiatrist Foot & Ankle Surgery | DX: T86.828 Other complications of skin graft (allograft) (autograft) (principal); T87.81 Dehiscence of amputation stump; E11.621 Type 2 diabetes mellitus with foot ulcer; I70.245 Atherosclerosis of native arteries of left leg with ulceration of other part of foot; L97.522 Non-pressure chronic ulcer of other part of left foot with fat layer exposed; E11.622 Type 2 diabetes mellitus with other skin ulcer; I70.233 Atherosclerosis of native arteries of right leg with ulceration of ankle; L97.312 Non-pressure chronic ulcer of right ankle with fat layer exposed; E11.51 Type 2 diabetes mellitus with diabetic peripheral angiopathy without gangrene; I25.110 Atherosclerotic heart disease of native coronary artery with unstable angina pectoris; I11.0 Hypertensive heart disease with heart failure; I50.23 Acute on chronic systolic (congestive) heart failure; E78.5 Hyperlipidemia, unspecified; F17.210 Nicotine dependence, cigarettes, uncomplicated; Z95.1 Presence of aortocoronary bypass graft; Y83.5 Amputation of limb(s) as the cause of abnormal reaction of the patient, or of later complication, without mention of misadventure at the time of the procedure; Y83.2 Surgical operation with anastomosis, bypass or graft as the cause of abnormal reaction of the patient, or of later complication, without mention of misadventure at the time of the procedure | CPT/HCPCS: A6209; G0463 ==

== ENCOUNTER → 2021-10-19 | Outpatient (CLI) | payer OTHER ==
[~2021-10-19] MED LIST changes: +ASPI-1005 PO; -LIDOCAINE HCL 4% LTA SOL 4 ML VIAL TP ONE; +PANT40TA PO; +PRAS10TA6 PO
== END | disposition home or self-care (01) ==
LOC: WHH 08:26
PROVIDERS: ATTEND Podiatrist Foot & Ankle Surgery
DX: E11.621 Type 2 diabetes mellitus with foot ulcer (principal); I70.245 Atherosclerosis of native arteries of left leg with ulceration of other part of foot; L97.522 Non-pressure chronic ulcer of other part of left foot with fat layer exposed; E11.51 Type 2 diabetes mellitus with diabetic peripheral angiopathy without gangrene; I11.0 Hypertensive heart disease with heart failure; I50.23 Acute on chronic systolic (congestive) heart failure; I25.110 Atherosclerotic heart disease of native coronary artery with unstable angina pectoris; E78.5 Hyperlipidemia, unspecified; F17.210 Nicotine dependence, cigarettes, uncomplicated; Z95.1 Presence of aortocoronary bypass graft
CPT/HCPCS: A6209; G0463

== ENCOUNTER → 2021-10-21 | Outpatient (CLI) | payer OTHER ==
[~2021-10-21] MED LIST changes: +LIDOCAINE HCL 4% LTA SOL 4 ML VIAL TP ONE
== END | disposition home or self-care (01) ==
LOC: WHH 08:02
PROVIDERS: ATTEND Podiatrist Foot & Ankle Surgery
DX: T86.828 Other complications of skin graft (allograft) (autograft) (principal); T87.81 Dehiscence of amputation stump; E11.621 Type 2 diabetes mellitus with foot ulcer; L97.511 Non-pressure chronic ulcer of other part of right foot limited to breakdown of skin; I70.245 Atherosclerosis of native arteries of left leg with ulceration of other part of foot; L97.522 Non-pressure chronic ulcer of other part of left foot with fat layer exposed; E11.622 Type 2 diabetes mellitus with other skin ulcer; I70.233 Atherosclerosis of native arteries of right leg with ulceration of ankle; L97.311 Non-pressure chronic ulcer of right ankle limited to breakdown of skin; E11.51 Type 2 diabetes mellitus with diabetic peripheral angiopathy without gangrene; I25.110 Atherosclerotic heart disease of native coronary artery with unstable angina pectoris; I50.23 Acute on chronic systolic (congestive) heart failure; E78.5 Hyperlipidemia, unspecified; I11.0 Hypertensive heart disease with heart failure; F17.210 Nicotine dependence, cigarettes, uncomplicated; Z95.1 Presence of aortocoronary bypass graft; Y83.5 Amputation of limb(s) as the cause of abnormal reaction of the patient, or of later complication, without mention of misadventure at the time of the procedure; Y83.2 Surgical operation with anastomosis, bypass or graft as the cause of abnormal reaction of the patient, or of later complication, without mention of misadventure at the time of the procedure
CPT/HCPCS: A6209; A6248; G0463

== ENCOUNTER → 2021-10-28 | Outpatient (CLI) | payer OTHER | END | disposition home or self-care (01) | LOC: WHH 08:17 | PROVIDERS: ATTEND Podiatrist Foot & Ankle Surgery | DX: T86.828 Other complications of skin graft (allograft) (autograft) (principal); T87.81 Dehiscence of amputation stump; E11.621 Type 2 diabetes mellitus with foot ulcer; L97.511 Non-pressure chronic ulcer of other part of right foot limited to breakdown of skin; I70.245 Atherosclerosis of native arteries of left leg with ulceration of other part of foot; L97.522 Non-pressure chronic ulcer of other part of left foot with fat layer exposed; E11.622 Type 2 diabetes mellitus with other skin ulcer; I70.233 Atherosclerosis of native arteries of right leg with ulceration of ankle; L97.311 Non-pressure chronic ulcer of right ankle limited to breakdown of skin; E11.51 Type 2 diabetes mellitus with diabetic peripheral angiopathy without gangrene; I25.110 Atherosclerotic heart disease of native coronary artery with unstable angina pectoris; I11.0 Hypertensive heart disease with heart failure; I50.23 Acute on chronic systolic (congestive) heart failure; E78.5 Hyperlipidemia, unspecified; F17.210 Nicotine dependence, cigarettes, uncomplicated; Z95.1 Presence of aortocoronary bypass graft; Y83.5 Amputation of limb(s) as the cause of abnormal reaction of the patient, or of later complication, without mention of misadventure at the time of the procedure; Y83.2 Surgical operation with anastomosis, bypass or graft as the cause of abnormal reaction of the patient, or of later complication, without mention of misadventure at the time of the procedure | CPT/HCPCS: 15277; 15278; A6209 ×2; Q4101; 15275; 15276 ==

== ENCOUNTER → 2021-11-11 | Outpatient (CLI) | payer OTHER | END | disposition home or self-care (01) | LOC: WHH 08:05 | PROVIDERS: ATTEND Podiatrist Foot & Ankle Surgery | DX: T86.828 Other complications of skin graft (allograft) (autograft) (principal); T87.81 Dehiscence of amputation stump; E11.621 Type 2 diabetes mellitus with foot ulcer; L97.511 Non-pressure chronic ulcer of other part of right foot limited to breakdown of skin; I70.245 Atherosclerosis of native arteries of left leg with ulceration of other part of foot; L97.522 Non-pressure chronic ulcer of other part of left foot with fat layer exposed; E11.622 Type 2 diabetes mellitus with other skin ulcer; I70.233 Atherosclerosis of native arteries of right leg with ulceration of ankle; L97.311 Non-pressure chronic ulcer of right ankle limited to breakdown of skin; E11.51 Type 2 diabetes mellitus with diabetic peripheral angiopathy without gangrene; I25.110 Atherosclerotic heart disease of native coronary artery with unstable angina pectoris; I11.0 Hypertensive heart disease with heart failure; I50.23 Acute on chronic systolic (congestive) heart failure; E78.5 Hyperlipidemia, unspecified; F17.210 Nicotine dependence, cigarettes, uncomplicated; Z95.1 Presence of aortocoronary bypass graft; Y83.2 Surgical operation with anastomosis, bypass or graft as the cause of abnormal reaction of the patient, or of later complication, without mention of misadventure at the time of the procedure; Y83.5 Amputation of limb(s) as the cause of abnormal reaction of the patient, or of later complication, without mention of misadventure at the time of the procedure | CPT/HCPCS: 15277; 15278; A6209; Q4101 ==

== ENCOUNTER → 2021-11-18 | Outpatient (CLI) | payer OTHER | END | disposition home or self-care (01) | LOC: WHH 08:08 | PROVIDERS: ATTEND Podiatrist Foot & Ankle Surgery | DX: T86.828 Other complications of skin graft (allograft) (autograft) (principal); T87.81 Dehiscence of amputation stump; E11.621 Type 2 diabetes mellitus with foot ulcer; L97.511 Non-pressure chronic ulcer of other part of right foot limited to breakdown of skin; I70.245 Atherosclerosis of native arteries of left leg with ulceration of other part of foot; L97.522 Non-pressure chronic ulcer of other part of left foot with fat layer exposed; E11.622 Type 2 diabetes mellitus with other skin ulcer; I70.233 Atherosclerosis of native arteries of right leg with ulceration of ankle; L97.311 Non-pressure chronic ulcer of right ankle limited to breakdown of skin; E11.51 Type 2 diabetes mellitus with diabetic peripheral angiopathy without gangrene; I25.110 Atherosclerotic heart disease of native coronary artery with unstable angina pectoris; I11.0 Hypertensive heart disease with heart failure; I50.23 Acute on chronic systolic (congestive) heart failure; E78.5 Hyperlipidemia, unspecified; F17.210 Nicotine dependence, cigarettes, uncomplicated; Z95.1 Presence of aortocoronary bypass graft; Y83.2 Surgical operation with anastomosis, bypass or graft as the cause of abnormal reaction of the patient, or of later complication, without mention of misadventure at the time of the procedure; Y83.5 Amputation of limb(s) as the cause of abnormal reaction of the patient, or of later complication, without mention of misadventure at the time of the procedure | CPT/HCPCS: 15277; 15278; A6209 ×2; Q4101 ==

== ENCOUNTER → 2021-11-25 | Outpatient (CLI) | payer OTHER | END | disposition home or self-care (01) | LOC: WHH 08:05 | PROVIDERS: ATTEND Podiatrist Foot & Ankle Surgery | DX: T86.828 Other complications of skin graft (allograft) (autograft) (principal); T87.81 Dehiscence of amputation stump; E11.621 Type 2 diabetes mellitus with foot ulcer; I70.235 Atherosclerosis of native arteries of right leg with ulceration of other part of foot; L97.515 Non-pressure chronic ulcer of other part of right foot with muscle involvement without evidence of necrosis; I70.245 Atherosclerosis of native arteries of left leg with ulceration of other part of foot; L97.522 Non-pressure chronic ulcer of other part of left foot with fat layer exposed; E11.622 Type 2 diabetes mellitus with other skin ulcer; I70.233 Atherosclerosis of native arteries of right leg with ulceration of ankle; L97.311 Non-pressure chronic ulcer of right ankle limited to breakdown of skin; E11.51 Type 2 diabetes mellitus with diabetic peripheral angiopathy without gangrene; I25.110 Atherosclerotic heart disease of native coronary artery with unstable angina pectoris; I11.0 Hypertensive heart disease with heart failure; I50.23 Acute on chronic systolic (congestive) heart failure; E78.5 Hyperlipidemia, unspecified; F17.210 Nicotine dependence, cigarettes, uncomplicated; Z95.1 Presence of aortocoronary bypass graft; Y83.2 Surgical operation with anastomosis, bypass or graft as the cause of abnormal reaction of the patient, or of later complication, without mention of misadventure at the time of the procedure; Y83.5 Amputation of limb(s) as the cause of abnormal reaction of the patient, or of later complication, without mention of misadventure at the time of the procedure | CPT/HCPCS: 11042; 15277; 15278; A6209 ×2; Q4101 ==

== ENCOUNTER → 2021-12-02 | Outpatient (CLI) | payer OTHER | LOC: WHH 08:20 | PROVIDERS: ATTEND Podiatrist Foot & Ankle Surgery | DX: T86.828 Other complications of skin graft (allograft) (autograft) (principal); T87.81 Dehiscence of amputation stump; E11.621 Type 2 diabetes mellitus with foot ulcer; I70.235 Atherosclerosis of native arteries of right leg with ulceration of other part of foot; L97.515 Non-pressure chronic ulcer of other part of right foot with muscle involvement without evidence of necrosis; I70.245 Atherosclerosis of native arteries of left leg with ulceration of other part of foot; L97.522 Non-pressure chronic ulcer of other part of left foot with fat layer exposed; E11.622 Type 2 diabetes mellitus with other skin ulcer; I70.233 Atherosclerosis of native arteries of right leg with ulceration of ankle; L97.311 Non-pressure chronic ulcer of right ankle limited to breakdown of skin; E11.51 Type 2 diabetes mellitus with diabetic peripheral angiopathy without gangrene; I25.110 Atherosclerotic heart disease of native coronary artery with unstable angina pectoris; E78.5 Hyperlipidemia, unspecified; I11.0 Hypertensive heart disease with heart failure; I50.23 Acute on chronic systolic (congestive) heart failure; I48.0 Paroxysmal atrial fibrillation; F17.210 Nicotine dependence, cigarettes, uncomplicated; Z95.1 Presence of aortocoronary bypass graft; Y83.5 Amputation of limb(s) as the cause of abnormal reaction of the patient, or of later complication, without mention of misadventure at the time of the procedure; Y83.2 Surgical operation with anastomosis, bypass or graft as the cause of abnormal reaction of the patient, or of later complication, without mention of misadventure at the time of the procedure | CPT/HCPCS: A6022 ×2; A6209; A6260; G0463 ==

== ENCOUNTER 2021-12-09 09:56 | Inpatient (IN) | payer MEDICARE, OTHER ==
[~2021-12-09] VITALS: Ht 175.3 cm; Wt 71.2 kg
[~2021-12-09 09:56] MED LIST changes: -LIDOCAINE HCL 4% LTA SOL 4 ML VIAL TP ONE
[2021-12-09 10:49] LABS: HEMATOCRIT 31.7 % (42-54); MEAN CORPUSCULAR HEMOGLOBIN 24.1 pg (27.0-33.0); MEAN CORPUSCULAR VOLUME 80.3 fL (79-99); PLATELET COUNT (AUTO) 426 K/uL (130-400); RED BLOOD CELL COUNT(AUTO) 3.95 MIL/uL (4.50-6.20); RED CELL DISTRIBUTION WIDTH 16.6 % (11.0-15.5); WHITE BLOOD COUNT (AUTO) 7.2 K/uL (4.8-10.8)
[2021-12-09 11:08] LABS: CREATININE 0.9 mg/dL (0.5-1.5); POTASSIUM 4.1 mmol/L (3.5-5.1)
[2021-12-09 11:13] LABS: ALBUMIN 2.8 g/dL (3.5-5.0); BILIRUBIN,TOTAL 0.2 mg/dL (0.2-1.0); TOTAL PROTEIN, SERUM 7.3 g/dL (6.0-8.3)
[2021-12-09 11:30] VITALS: BP 109/46
[2021-12-09] MEDS ORDERED: VANCOMYCIN PROTOCOL PER PHARMACY IV SCH (12:00)
[2021-12-09] MEDS ORDERED: IPRATROPIUM/ALBUTEROL SULFATE 3 ML SOLUTION IH PRN (12:00)
[2021-12-09] MEDS ORDERED: FAMO20TA8 PO (12:20)
[2021-12-09] MEDS ORDERED: EMPA25TA PO (12:25)
[2021-12-09] MEDS ORDERED: FURO40TA5 PO (12:27)
[2021-12-09 12:41] LABS: INR 1.21 (0.85-1.15)
[2021-12-09 12:42] LABS: PARTIAL THROMBOPLASTIN TIME 30.1 SEC (26.3-35.5)
[2021-12-09 13:20] LABS: % IRON SATURATION 5.1 % (30-44)
[2021-12-09] MEDS: METRONIDAZOLE 500 MG TABLET PO SCH ×2 (13:21→20:32)
[2021-12-09] MEDS: PANTOPRAZOLE 40 MG TAB DR PO SCH (13:21)
[2021-12-09] MEDS: ACETAMINOPHEN WITH CODEINE 1 TAB TAB PO PRN (13:21)
[2021-12-09] MEDS: CEFEPIME HCL 2 GM VIAL IVP SCH ×2 (13:22→23:43)
[2021-12-09] MEDS: TRAMADOL HCL 50 MG TABLET PO SCH ×3 (13:27→23:44)
[2021-12-09] MEDS ORDERED: COMPOUND IV REFRIGERATED 1 EACH IVSOLN MISC PRN (14:00)
[2021-12-09] MEDS ORDERED: VANCOMYCIN 1.5 GM/250 ML BAG 250 ML IV ONE (14:00)
[2021-12-09] MEDS ORDERED: BUDESONIDE 0.5 MG/2 ML INH IH SCH (15:00)
[2021-12-09 16:00] VITALS: BP 126/67
[2021-12-09] MEDS: INSULIN HUMULIN R 100 UNIT/ML 3ML SQ SCH ×2 (16:30→20:37)
[2021-12-09] MEDS: BUDESONIDE 0.5 MG/2 ML INH IH SCH ×2 (17:38→21:00)
[2021-12-09 19:35] VITALS: BP 112/43
[2021-12-09] MEDS: METOPROLOL TARTRATE 25 MG TAB PO SCH (20:32)
[2021-12-09 23:17] VITALS: BP 97/50
[2021-12-10] MEDS: METRONIDAZOLE 500 MG TABLET PO SCH ×3 (03:46→21:50)
[2021-12-10 03:49] VITALS: BP 97/48
[2021-12-10] MEDS: VANCOMYCIN 1G/250ML KIT 250 ML IV SCH ×2 (05:35→18:06)
[2021-12-10] MEDS: TRAMADOL HCL 50 MG TABLET PO SCH (05:36)
[2021-12-10] MEDS: BUDESONIDE 0.5 MG/2 ML INH IH SCH ×2 (06:16→17:12)
[2021-12-10 06:24] LABS: BASOPHILS % (AUTO) 0.4 % (0.0-5.0); EOSINOPHILS % (AUTO) 2.5 % (0.0-8.0); HEMATOCRIT 27.7 % (42-54); LYMPHOCYTES % (AUTO) 22.5 % (21.0-51.0); MEAN CORPUSCULAR HEMOGLOBIN 24.5 pg (27.0-33.0); MEAN CORPUSCULAR VOLUME 81.7 fL (79-99); MONOCYTES % (AUTO) 9.3 % (3.0-13.0); PLATELET COUNT (AUTO) 365 K/uL (130-400); RED BLOOD CELL COUNT(AUTO) 3.39 MIL/uL (4.50-6.20); RED CELL DISTRIBUTION WIDTH 16.7 % (11.0-15.5); WHITE BLOOD COUNT (AUTO) 6.8 K/uL (4.8-10.8)
[2021-12-10] MEDS: INSULIN HUMULIN R 100 UNIT/ML 3ML SQ SCH ×4 (06:33→21:00)
[2021-12-10 07:07] LABS: ALBUMIN 2.4 g/dL (3.5-5.0); BILIRUBIN,TOTAL 0.3 mg/dL (0.2-1.0); CREATININE 0.9 mg/dL (0.5-1.5); MAGNESIUM 1.9 mg/dL (1.80-2.40); POTASSIUM 4.6 mmol/L (3.5-5.1); TOTAL PROTEIN, SERUM 6.2 g/dL (6.0-8.3)
[2021-12-10 07:26] VITALS: BP 104/59
[2021-12-10] MEDS: ATORVASTATIN 40 MG TABLET PO SCH (08:23)
[2021-12-10] MEDS: ASPIRIN 81MG CHEW TAB PO SCH (08:23)
[2021-12-10] MEDS: FUROSEMIDE 40 MG TABLET PO SCH (08:23)
[2021-12-10] MEDS: PANTOPRAZOLE 40 MG TAB DR PO SCH ×2 (08:24→12:55)
[2021-12-10] MEDS: METOPROLOL TARTRATE 25 MG TAB PO SCH ×2 (08:24→21:50)
[2021-12-10] MEDS: PRASUGREL HCL 10 MG TABLET PO SCH (08:25)
[2021-12-10 11:38] VITALS: BP 102/51
[2021-12-10] MEDS ORDERED: MAGNESIUM 2GM PREMIX 50ML 50 ML IV PRN (12:30)
[2021-12-10] MEDS: CEFEPIME HCL 2 GM VIAL IVP SCH (12:55)
[2021-12-10 15:47] VITALS: BP 115/50
[2021-12-10 20:41] VITALS: BP 107/50
[2021-12-10 23:33] VITALS: BP 101/49
[2021-12-11] VITALS (26 sets, daily range): BP systolic 18–114; BP diastolic 36–60
[2021-12-11] MEDS: CEFEPIME HCL 2 GM VIAL IVP SCH (00:14)
[2021-12-11] MEDS: ACETAMINOPHEN WITH CODEINE 1 TAB TAB PO PRN (00:23)
[2021-12-11 05:01] LABS: BASOPHILS % (AUTO) 0.5 % (0.0-5.0); EOSINOPHILS % (AUTO) 2.3 % (0.0-8.0); HEMATOCRIT 28.2 % (42-54); LYMPHOCYTES % (AUTO) 21.5 % (21.0-51.0); MEAN CORPUSCULAR HEMOGLOBIN 24.2 pg (27.0-33.0); MEAN CORPUSCULAR HGB CONC 30.1 g/dL (32.0-36.0); MEAN CORPUSCULAR VOLUME 80.3 fL (79-99); NEUTROPHILS % (AUTO) 65.4 % (40.0-77.0); PLATELET COUNT (AUTO) 415 K/uL (130-400); RED BLOOD CELL COUNT(AUTO) 3.51 MIL/uL (4.50-6.20); RED CELL DISTRIBUTION WIDTH 16.4 % (11.0-15.5); WHITE BLOOD COUNT (AUTO) 7.5 K/uL (4.8-10.8)
[2021-12-11] MEDS: METRONIDAZOLE 500 MG TABLET PO SCH ×3 (05:15→21:42)
[2021-12-11 05:43] LABS: ALBUMIN 2.5 g/dL (3.5-5.0); BILIRUBIN,TOTAL 0.4 mg/dL (0.2-1.0); CREATININE 0.8 mg/dL (0.5-1.5); POTASSIUM 4.1 mmol/L (3.5-5.1); TOTAL PROTEIN, SERUM 6.5 g/dL (6.0-8.3)
[2021-12-11] MEDS: INSULIN HUMULIN R 100 UNIT/ML 3ML SQ SCH ×4 (05:48→21:00)
[2021-12-11] MEDS: VANCOMYCIN 1G/250ML KIT 250 ML IV SCH ×2 (05:57→18:00)
[2021-12-11] MEDS: BUDESONIDE 0.5 MG/2 ML INH IH SCH ×2 (06:17→18:48)
[2021-12-11] MEDS: METOPROLOL TARTRATE 25 MG TAB PO SCH ×2 (07:34→21:43)
[2021-12-11] MEDS: FUROSEMIDE 40 MG TABLET PO SCH ×2 (09:00→10:00)
[2021-12-11] MEDS: ASPIRIN 81MG CHEW TAB PO SCH ×2 (09:00→10:00)
[2021-12-11] MEDS: PANTOPRAZOLE 40 MG TAB DR PO SCH ×2 (09:00→12:00)
[2021-12-11] MEDS: ATORVASTATIN 40 MG TABLET PO SCH (09:00)
[2021-12-11] MEDS: PRASUGREL HCL 10 MG TABLET PO SCH ×2 (09:00→10:00)
[2021-12-11] MEDS ORDERED: 0.9%NACL 1000ML 1,000 ML IV ONE (12:10)
[2021-12-11] MEDS ORDERED: SUCCINYLCHOLINE 200MG/10ML SYR ONE (12:29)
[2021-12-11] MEDS ORDERED: MIDAZOLAM HCL 1 MG/ML 2ML VIAL ONE (12:29)
[2021-12-11] MEDS ORDERED: PROPOFOL 10 MG/ML 20ML VIAL IV ONE (12:29)
[2021-12-11] MEDS ORDERED: LIDOCAINE PF 100MG/5ML (2%) SYRINGE 5ML ONE (12:29)
[2021-12-11] MEDS ORDERED: FENTANYL CITRATE PF 50 MCG/1 ML 2ML VIAL ONE (12:49)
[2021-12-11] MEDS ORDERED: NEOMY SULF/BACITRAC ZN/POLY OINT 30GM TUBE TP ONE (13:04)
[2021-12-11] MEDS ORDERED: MEPERIDINE-PF 25 MG/ML SYG ONE (14:31)
[2021-12-11] MEDS ORDERED: 0.9% NACL 250ML 250 ML ONE (18:07)
[2021-12-12] MEDS: ACETAMINOPHEN WITH CODEINE 1 TAB TAB PO PRN ×2 (00:04→10:54)
[2021-12-12] MEDS: CEFEPIME HCL 2 GM VIAL IVP SCH ×3 (00:05→21:57)
[2021-12-12 03:56] VITALS: BP 94/49
[2021-12-12 04:47] LABS: BASOPHILS % (AUTO) 0.5 % (0.0-5.0); EOSINOPHILS % (AUTO) 0.5 % (0.0-8.0); HEMATOCRIT 29.7 % (42-54); LYMPHOCYTES % (AUTO) 10.3 % (21.0-51.0); MEAN CORPUSCULAR HEMOGLOBIN 24.2 pg (27.0-33.0); MEAN CORPUSCULAR VOLUME 80.7 fL (79-99); MONOCYTES % (AUTO) 7.1 % (3.0-13.0); NEUTROPHILS % (AUTO) 81.2 % (40.0-77.0); PLATELET COUNT (AUTO) 447 K/uL (130-400); RED BLOOD CELL COUNT(AUTO) 3.68 MIL/uL (4.50-6.20); RED CELL DISTRIBUTION WIDTH 16.1 % (11.0-15.5); WHITE BLOOD COUNT (AUTO) 10.8 K/uL (4.8-10.8)
[2021-12-12 05:15] LABS: CREATININE 0.9 mg/dL (0.5-1.5); POTASSIUM 4.1 mmol/L (3.5-5.1)
[2021-12-12] MEDS ORDERED: 0.9% NACL 250ML 250 ML ONE (05:38)
[2021-12-12] MEDS: METRONIDAZOLE 500 MG TABLET PO SCH ×3 (05:55→21:56)
[2021-12-12] MEDS: VANCOMYCIN 1G/250ML KIT 250 ML IV SCH ×2 (05:56→19:09)
[2021-12-12] MEDS: INSULIN HUMULIN R 100 UNIT/ML 3ML SQ SCH ×4 (05:57→21:00)
[2021-12-12] MEDS: BUDESONIDE 0.5 MG/2 ML INH IH SCH ×2 (06:52→17:06)
[2021-12-12 08:00] VITALS: BP 90/45
[2021-12-12] MEDS: METOPROLOL TARTRATE 25 MG TAB PO SCH ×2 (09:00→21:57)
[2021-12-12] MEDS: ATORVASTATIN 40 MG TABLET PO SCH (10:58)
[2021-12-12] MEDS: PANTOPRAZOLE 40 MG TAB DR PO SCH ×2 (10:58→12:00)
[2021-12-12 12:00] VITALS: BP 108/39
[2021-12-12 16:00] VITALS: BP 97/42
[2021-12-12 19:00] VITALS: BP 96/57
[2021-12-12] MEDS: MORPHINE 2 MG SYG IVP PRN (19:07)
[2021-12-12] MEDS: POLYETHYLENE GLYCOL 3350 17 GM POWD.PACK PO SCH (20:00)
[2021-12-12] MEDS: DOCUSATE SODIUM 100 MG CAP PO PRN (21:57)
[2021-12-13] VITALS (7 sets, daily range): BP systolic 92–111; BP diastolic 36–57
[2021-12-13 05:44] LABS: BASOPHILS % (AUTO) 0.4 % (0.0-5.0); LYMPHOCYTES % (AUTO) 12.9 % (21.0-51.0); MEAN CORPUSCULAR HEMOGLOBIN 23.3 pg (27.0-33.0); MEAN CORPUSCULAR VOLUME 80.6 fL (79-99); MONOCYTES % (AUTO) 10.2 % (3.0-13.0); NEUTROPHILS % (AUTO) 75.1 % (40.0-77.0); PLATELET COUNT (AUTO) 447 K/uL (130-400); RED CELL DISTRIBUTION WIDTH 16.3 % (11.0-15.5); WHITE BLOOD COUNT (AUTO) 9.2 K/uL (4.8-10.8)
[2021-12-13 05:59] LABS: POTASSIUM 4.2 mmol/L (3.5-5.1)
[2021-12-13] MEDS: METRONIDAZOLE 500 MG TABLET PO SCH ×3 (06:02→21:15)
[2021-12-13] MEDS: VANCOMYCIN 1G/250ML KIT 250 ML IV SCH (06:04)
[2021-12-13] MEDS: INSULIN HUMULIN R 100 UNIT/ML 3ML SQ SCH ×4 (06:05→21:00)
[2021-12-13] MEDS: BUDESONIDE 0.5 MG/2 ML INH IH SCH ×2 (06:37→16:56)
[2021-12-13] MEDS: METOPROLOL TARTRATE 25 MG TAB PO SCH ×2 (09:00→21:00)
[2021-12-13] MEDS: PRASUGREL HCL 10 MG TABLET PO SCH (09:55)
[2021-12-13] MEDS: PANTOPRAZOLE 40 MG TAB DR PO SCH (09:56)
[2021-12-13] MEDS: ACETAMINOPHEN WITH CODEINE 1 TAB TAB PO PRN ×2 (09:56→19:05)
[2021-12-13] MEDS: ATORVASTATIN 40 MG TABLET PO SCH (09:57)
[2021-12-13] MEDS: FUROSEMIDE 40 MG TABLET PO SCH (09:58)
[2021-12-13] MEDS: ASPIRIN 81MG CHEW TAB PO SCH (09:58)
[2021-12-13] MEDS: POLYETHYLENE GLYCOL 3350 17 GM POWD.PACK PO SCH (09:59)
[2021-12-13] MEDS: CEFEPIME HCL 2 GM VIAL IVP SCH (14:04)
[2021-12-13] MEDS: VANCOMYCIN 750MG VIAL IVPB SCH (18:00)
[2021-12-13] MEDS: 0.9% NACL 250ML 250 ML IV SCH (20:44)
[2021-12-14] VITALS (7 sets, daily range): BP systolic 96–113; BP diastolic 42–58
[2021-12-14] MEDS: CEFEPIME HCL 2 GM VIAL IVP SCH ×2 (02:08→12:38)
[2021-12-14 04:25] LABS: BASOPHILS % (AUTO) 0.6 % (0.0-5.0); EOSINOPHILS % (AUTO) 1.6 % (0.0-8.0); HEMATOCRIT 26.1 % (42-54); MEAN CORPUSCULAR HEMOGLOBIN 23.7 pg (27.0-33.0); MEAN CORPUSCULAR HGB CONC 29.9 g/dL (32.0-36.0); MEAN CORPUSCULAR VOLUME 79.3 fL (79-99); MONOCYTES % (AUTO) 12.2 % (3.0-13.0); PLATELET COUNT (AUTO) 395 K/uL (130-400); RED BLOOD CELL COUNT(AUTO) 3.29 MIL/uL (4.50-6.20); RED CELL DISTRIBUTION WIDTH 16.1 % (11.0-15.5); WHITE BLOOD COUNT (AUTO) 8.3 K/uL (4.8-10.8)
[2021-12-14 04:39] LABS: POTASSIUM 3.8 mmol/L (3.5-5.1)
[2021-12-14] MEDS: METRONIDAZOLE 500 MG TABLET PO SCH ×3 (05:04→19:22)
[2021-12-14] MEDS: INSULIN HUMULIN R 100 UNIT/ML 3ML SQ SCH ×4 (05:55→20:42)
[2021-12-14] MEDS: VANCOMYCIN 750MG VIAL IVPB SCH ×2 (06:01→18:48)
[2021-12-14] MEDS: 0.9% NACL 250ML 250 ML IV SCH ×2 (06:01→18:50)
[2021-12-14] MEDS: ACETAMINOPHEN WITH CODEINE 1 TAB TAB PO PRN ×2 (06:52→20:48)
[2021-12-14] MEDS: ASPIRIN 81MG CHEW TAB PO SCH (08:47)
[2021-12-14] MEDS: ATORVASTATIN 40 MG TABLET PO SCH (08:47)
[2021-12-14] MEDS: PRASUGREL HCL 10 MG TABLET PO SCH (08:48)
[2021-12-14] MEDS: METOPROLOL TARTRATE 25 MG TAB PO SCH ×2 (08:48→20:41)
[2021-12-14] MEDS: PANTOPRAZOLE 40 MG TAB DR PO SCH (08:48)
[2021-12-14] MEDS: FUROSEMIDE 40 MG TABLET PO SCH (08:48)
[2021-12-14] MEDS: POLYETHYLENE GLYCOL 3350 17 GM POWD.PACK PO SCH (08:49)
[2021-12-14] MEDS ORDERED: BUDESONIDE 0.5 MG/2 ML INH IH PRN (12:30)
[2021-12-14] MEDS: MORPHINE 2 MG SYG IVP PRN (12:52)
[2021-12-15] MEDS: CEFEPIME HCL 2 GM VIAL IVP SCH ×2 (00:02→11:45)
[2021-12-15] MEDS: METRONIDAZOLE 500 MG TABLET PO SCH ×2 (03:30→11:45)
[2021-12-15 05:20] LABS: HEMATOCRIT 28.6 % (42-54); MEAN CORPUSCULAR HEMOGLOBIN 23.7 pg (27.0-33.0); MEAN CORPUSCULAR HGB CONC 29.7 g/dL (32.0-36.0); MEAN CORPUSCULAR VOLUME 79.7 fL (79-99); RED BLOOD CELL COUNT(AUTO) 3.59 MIL/uL (4.50-6.20); RED CELL DISTRIBUTION WIDTH 16.1 % (11.0-15.5); WHITE BLOOD COUNT (AUTO) 6.8 K/uL (4.8-10.8)
[2021-12-15 05:59] LABS: CREATININE 0.9 mg/dL (0.5-1.5)
[2021-12-15 06:09] LABS: POTASSIUM 3.3 mmol/L (3.5-5.1)
[2021-12-15 06:13] VITALS: BP 109/60
[2021-12-15] MEDS: VANCOMYCIN 750MG VIAL IVPB SCH (06:13)
[2021-12-15] MEDS: 0.9% NACL 250ML 250 ML IV SCH (06:14)
[2021-12-15] MEDS ORDERED: POTASSIUM CHLORIDE 20MEQ/100ML 100 ML IV PRN (06:30)
[2021-12-15] MEDS ORDERED: KCL 20 MEQ ERTAB PO PRN (06:30)
[2021-12-15] MEDS ORDERED: POTASSIUM CHLORIDE 10% ELIXIR 20 MEQ/15 ML UDCUP PO PRN (06:30)
[2021-12-15] MEDS ORDERED: LIDOCAINE HCL-MPF 1% 2ML VIAL IV PRN (06:30)
[2021-12-15] MEDS: INSULIN HUMULIN R 100 UNIT/ML 3ML SQ SCH ×3 (06:41→15:39)
[2021-12-15 07:30] VITALS: BP 99/53
[2021-12-15] MEDS: PANTOPRAZOLE 40 MG TAB DR PO SCH (08:16)
[2021-12-15] MEDS: FUROSEMIDE 40 MG TABLET PO SCH (08:16)
[2021-12-15] MEDS: ATORVASTATIN 40 MG TABLET PO SCH (08:16)
[2021-12-15] MEDS: PRASUGREL HCL 10 MG TABLET PO SCH (08:16)
[2021-12-15] MEDS: ASPIRIN 81MG CHEW TAB PO SCH (08:17)
[2021-12-15] MEDS: METOPROLOL TARTRATE 25 MG TAB PO SCH (08:17)
[2021-12-15] MEDS: POLYETHYLENE GLYCOL 3350 17 GM POWD.PACK PO SCH (08:20)
[2021-12-15] MEDS: DOCUSATE SODIUM 100 MG CAP PO PRN (08:25)
[2021-12-15] MEDS: ACETAMINOPHEN WITH CODEINE 1 TAB TAB PO PRN (08:25)
[2021-12-15] MEDS ORDERED: MUPIROCIN OINTMENT 22 GM TUBE TP SCH (10:00)
[2021-12-15 11:25] VITALS: BP 100/50
[2021-12-15 15:30] VITALS: BP 91/51
== END 2021-12-15 18:00 | DRG 239 ==
LOC: EDH 09:56 → 3AH 11:23
PROVIDERS: ADMIT Hospitalist; ATTEND Hospitalist
PROC: 0Y6M0ZB Detachment at Right Foot, Partial 2nd Ray, Open Approach (ICD-10-PCS; 2021-12-11)
PROC: 0Y6M0ZC Detachment at Right Foot, Partial 3rd Ray, Open Approach (ICD-10-PCS; 2021-12-11)
PROC: 0Y6M0ZD Detachment at Right Foot, Partial 4th Ray, Open Approach (ICD-10-PCS; 2021-12-11)
PROC: 0Y6M0ZF Detachment at Right Foot, Partial 5th Ray, Open Approach (ICD-10-PCS; 2021-12-11)
PROC: 0LBS0ZZ Excision of Right Ankle Tendon, Open Approach (ICD-10-PCS; 2021-12-11)
PROC: 0Y6M0Z9 Detachment at Right Foot, Partial 1st Ray, Open Approach (ICD-10-PCS; principal; 2021-12-11 12:46)
DX: E11.52 Type 2 diabetes mellitus with diabetic peripheral angiopathy with gangrene (principal); I50.23 Acute on chronic systolic (congestive) heart failure; I96 Gangrene, not elsewhere classified; L03.115 Cellulitis of right lower limb; M86.171 Other acute osteomyelitis, right ankle and foot; I50.22 Chronic systolic (congestive) heart failure; I25.5 Ischemic cardiomyopathy; L97.519 Non-pressure chronic ulcer of other part of right foot with unspecified severity; Z20.822 Contact with and (suspected) exposure to COVID-19; E11.69 Type 2 diabetes mellitus with other specified complication; I25.10 Atherosclerotic heart disease of native coronary artery without angina pectoris; F17.210 Nicotine dependence, cigarettes, uncomplicated; D64.9 Anemia, unspecified; I11.0 Hypertensive heart disease with heart failure; Z95.1 Presence of aortocoronary bypass graft; Z83.3 Family history of diabetes mellitus
CPT/HCPCS: 36415; 73620; 73630; 80048; 80053; 80202; 82607; 82728; 82746; 82948; 83540; 83550; 83605; 83735; 84145; 85025; 85027; 85610; 85651; 85730; 86140; 87040; 87070; 87076; 87077; 87186; 87635; 88307; 88311; 93005; 93306; 94640; 94664; G0378; J0330; J0692; J1815; J2001; J2175; J2250; J2704; J3010; J3370; J7030; J7050

== ENCOUNTER → 2022-01-20 | Outpatient (CLI) | payer OTHER ==
[~2022-01-20] MED LIST changes: -AMIO200T68 PO; -GLIP10TA9 PO; -INSU100V12 SQ; +LIDOCAINE HCL 4% LTA SOL 4 ML VIAL TP ONE; -LISI2.5T13 PO; -METF-446 PO; -PANT40TA PO; -TRAM50TA4 PO
== END | disposition home or self-care (01) ==
LOC: WHH 07:57
PROVIDERS: ATTEND Podiatrist Foot & Ankle Surgery
DX: T86.828 Other complications of skin graft (allograft) (autograft) (principal); T87.81 Dehiscence of amputation stump; E11.621 Type 2 diabetes mellitus with foot ulcer; I70.245 Atherosclerosis of native arteries of left leg with ulceration of other part of foot; L97.522 Non-pressure chronic ulcer of other part of left foot with fat layer exposed; I70.235 Atherosclerosis of native arteries of right leg with ulceration of other part of foot; L97.512 Non-pressure chronic ulcer of other part of right foot with fat layer exposed; E11.622 Type 2 diabetes mellitus with other skin ulcer; I70.233 Atherosclerosis of native arteries of right leg with ulceration of ankle; L97.311 Non-pressure chronic ulcer of right ankle limited to breakdown of skin; E11.51 Type 2 diabetes mellitus with diabetic peripheral angiopathy without gangrene; I11.0 Hypertensive heart disease with heart failure; I50.23 Acute on chronic systolic (congestive) heart failure; I48.0 Paroxysmal atrial fibrillation; E78.5 Hyperlipidemia, unspecified; I25.110 Atherosclerotic heart disease of native coronary artery with unstable angina pectoris; F17.210 Nicotine dependence, cigarettes, uncomplicated; Z95.1 Presence of aortocoronary bypass graft; Y83.2 Surgical operation with anastomosis, bypass or graft as the cause of abnormal reaction of the patient, or of later complication, without mention of misadventure at the time of the procedure; Y83.5 Amputation of limb(s) as the cause of abnormal reaction of the patient, or of later complication, without mention of misadventure at the time of the procedure
CPT/HCPCS: 11042; 11045; A6207 ×2

== ENCOUNTER → 2022-01-27 | Outpatient (CLI) | payer OTHER | END | disposition home or self-care (01) | LOC: WHH 08:11 | PROVIDERS: ATTEND Podiatrist Foot & Ankle Surgery | DX: T86.828 Other complications of skin graft (allograft) (autograft) (principal); T87.81 Dehiscence of amputation stump; E11.621 Type 2 diabetes mellitus with foot ulcer; I70.245 Atherosclerosis of native arteries of left leg with ulceration of other part of foot; L97.522 Non-pressure chronic ulcer of other part of left foot with fat layer exposed; I70.235 Atherosclerosis of native arteries of right leg with ulceration of other part of foot; L97.512 Non-pressure chronic ulcer of other part of right foot with fat layer exposed; E11.622 Type 2 diabetes mellitus with other skin ulcer; I70.233 Atherosclerosis of native arteries of right leg with ulceration of ankle; L97.311 Non-pressure chronic ulcer of right ankle limited to breakdown of skin; E11.51 Type 2 diabetes mellitus with diabetic peripheral angiopathy without gangrene; I11.0 Hypertensive heart disease with heart failure; I50.23 Acute on chronic systolic (congestive) heart failure; I48.0 Paroxysmal atrial fibrillation; E78.5 Hyperlipidemia, unspecified; I25.110 Atherosclerotic heart disease of native coronary artery with unstable angina pectoris; F17.210 Nicotine dependence, cigarettes, uncomplicated; Z95.1 Presence of aortocoronary bypass graft; Y83.2 Surgical operation with anastomosis, bypass or graft as the cause of abnormal reaction of the patient, or of later complication, without mention of misadventure at the time of the procedure; Y83.5 Amputation of limb(s) as the cause of abnormal reaction of the patient, or of later complication, without mention of misadventure at the time of the procedure | CPT/HCPCS: 11042; 11045; A6207 ==

== ENCOUNTER → 2022-02-03 | Outpatient (CLI) | payer OTHER | END | disposition home or self-care (01) | LOC: WHH 08:00 | PROVIDERS: ATTEND Podiatrist Foot & Ankle Surgery | DX: T86.828 Other complications of skin graft (allograft) (autograft) (principal); T87.81 Dehiscence of amputation stump; E11.621 Type 2 diabetes mellitus with foot ulcer; I70.245 Atherosclerosis of native arteries of left leg with ulceration of other part of foot; L97.522 Non-pressure chronic ulcer of other part of left foot with fat layer exposed; I70.235 Atherosclerosis of native arteries of right leg with ulceration of other part of foot; L97.512 Non-pressure chronic ulcer of other part of right foot with fat layer exposed; E11.622 Type 2 diabetes mellitus with other skin ulcer; I70.233 Atherosclerosis of native arteries of right leg with ulceration of ankle; L97.311 Non-pressure chronic ulcer of right ankle limited to breakdown of skin; E11.52 Type 2 diabetes mellitus with diabetic peripheral angiopathy with gangrene; I96 Gangrene, not elsewhere classified; I11.0 Hypertensive heart disease with heart failure; I50.23 Acute on chronic systolic (congestive) heart failure; I48.0 Paroxysmal atrial fibrillation; E78.5 Hyperlipidemia, unspecified; I25.110 Atherosclerotic heart disease of native coronary artery with unstable angina pectoris; F17.210 Nicotine dependence, cigarettes, uncomplicated; Z95.1 Presence of aortocoronary bypass graft; Y83.2 Surgical operation with anastomosis, bypass or graft as the cause of abnormal reaction of the patient, or of later complication, without mention of misadventure at the time of the procedure; Y83.5 Amputation of limb(s) as the cause of abnormal reaction of the patient, or of later complication, without mention of misadventure at the time of the procedure | CPT/HCPCS: 11042; 11045; A4450; A6209 ==

== ENCOUNTER → 2022-02-10 | Outpatient (CLI) | payer OTHER | END | disposition home or self-care (01) | LOC: WHH 08:06 | PROVIDERS: ATTEND Podiatrist Foot & Ankle Surgery | DX: T86.828 Other complications of skin graft (allograft) (autograft) (principal); T87.81 Dehiscence of amputation stump; E11.621 Type 2 diabetes mellitus with foot ulcer; I70.245 Atherosclerosis of native arteries of left leg with ulceration of other part of foot; L97.522 Non-pressure chronic ulcer of other part of left foot with fat layer exposed; I70.235 Atherosclerosis of native arteries of right leg with ulceration of other part of foot; L97.512 Non-pressure chronic ulcer of other part of right foot with fat layer exposed; E11.622 Type 2 diabetes mellitus with other skin ulcer; I70.233 Atherosclerosis of native arteries of right leg with ulceration of ankle; L97.311 Non-pressure chronic ulcer of right ankle limited to breakdown of skin; E11.52 Type 2 diabetes mellitus with diabetic peripheral angiopathy with gangrene; I96 Gangrene, not elsewhere classified; I11.0 Hypertensive heart disease with heart failure; I50.23 Acute on chronic systolic (congestive) heart failure; I48.0 Paroxysmal atrial fibrillation; E78.5 Hyperlipidemia, unspecified; I25.110 Atherosclerotic heart disease of native coronary artery with unstable angina pectoris; F17.210 Nicotine dependence, cigarettes, uncomplicated; Z95.1 Presence of aortocoronary bypass graft; Y83.2 Surgical operation with anastomosis, bypass or graft as the cause of abnormal reaction of the patient, or of later complication, without mention of misadventure at the time of the procedure; Y83.5 Amputation of limb(s) as the cause of abnormal reaction of the patient, or of later complication, without mention of misadventure at the time of the procedure | CPT/HCPCS: 11042; A6209 ==

== ENCOUNTER → 2022-02-17 | Outpatient (CLI) | payer OTHER | END | disposition home or self-care (01) | LOC: WHH 08:18 | PROVIDERS: ATTEND Podiatrist Foot & Ankle Surgery | DX: T86.828 Other complications of skin graft (allograft) (autograft) (principal); T87.81 Dehiscence of amputation stump; E11.621 Type 2 diabetes mellitus with foot ulcer; I70.245 Atherosclerosis of native arteries of left leg with ulceration of other part of foot; L97.522 Non-pressure chronic ulcer of other part of left foot with fat layer exposed; I70.235 Atherosclerosis of native arteries of right leg with ulceration of other part of foot; L97.512 Non-pressure chronic ulcer of other part of right foot with fat layer exposed; E11.52 Type 2 diabetes mellitus with diabetic peripheral angiopathy with gangrene; I96 Gangrene, not elsewhere classified; I11.0 Hypertensive heart disease with heart failure; I50.23 Acute on chronic systolic (congestive) heart failure; I48.0 Paroxysmal atrial fibrillation; E78.5 Hyperlipidemia, unspecified; I25.110 Atherosclerotic heart disease of native coronary artery with unstable angina pectoris; F17.210 Nicotine dependence, cigarettes, uncomplicated; Z95.1 Presence of aortocoronary bypass graft; Y83.2 Surgical operation with anastomosis, bypass or graft as the cause of abnormal reaction of the patient, or of later complication, without mention of misadventure at the time of the procedure; Y83.5 Amputation of limb(s) as the cause of abnormal reaction of the patient, or of later complication, without mention of misadventure at the time of the procedure | CPT/HCPCS: 11042; 11045; A6209 ==

== ENCOUNTER → 2022-02-24 | Outpatient (CLI) | payer OTHER | END | disposition home or self-care (01) | LOC: WHH 08:08 | PROVIDERS: ATTEND Podiatrist Foot & Ankle Surgery | DX: T86.828 Other complications of skin graft (allograft) (autograft) (principal); E11.621 Type 2 diabetes mellitus with foot ulcer; I70.245 Atherosclerosis of native arteries of left leg with ulceration of other part of foot; L97.522 Non-pressure chronic ulcer of other part of left foot with fat layer exposed; I70.235 Atherosclerosis of native arteries of right leg with ulceration of other part of foot; L97.512 Non-pressure chronic ulcer of other part of right foot with fat layer exposed; E11.622 Type 2 diabetes mellitus with other skin ulcer; I70.233 Atherosclerosis of native arteries of right leg with ulceration of ankle; L97.311 Non-pressure chronic ulcer of right ankle limited to breakdown of skin; E11.52 Type 2 diabetes mellitus with diabetic peripheral angiopathy with gangrene; I96 Gangrene, not elsewhere classified; I11.0 Hypertensive heart disease with heart failure; I50.23 Acute on chronic systolic (congestive) heart failure; I25.110 Atherosclerotic heart disease of native coronary artery with unstable angina pectoris; I48.0 Paroxysmal atrial fibrillation; E78.5 Hyperlipidemia, unspecified; F17.210 Nicotine dependence, cigarettes, uncomplicated; Z95.1 Presence of aortocoronary bypass graft; Y83.2 Surgical operation with anastomosis, bypass or graft as the cause of abnormal reaction of the patient, or of later complication, without mention of misadventure at the time of the procedure | CPT/HCPCS: 11042 ==

== ENCOUNTER → 2022-03-10 | Outpatient (CLI) | payer OTHER | END | disposition home or self-care (01) | LOC: WHH 08:06 | PROVIDERS: ATTEND Podiatrist Foot & Ankle Surgery | DX: T86.828 Other complications of skin graft (allograft) (autograft) (principal); T87.81 Dehiscence of amputation stump; E11.621 Type 2 diabetes mellitus with foot ulcer; I70.235 Atherosclerosis of native arteries of right leg with ulceration of other part of foot; L97.512 Non-pressure chronic ulcer of other part of right foot with fat layer exposed; I70.245 Atherosclerosis of native arteries of left leg with ulceration of other part of foot; L97.522 Non-pressure chronic ulcer of other part of left foot with fat layer exposed; E11.622 Type 2 diabetes mellitus with other skin ulcer; I70.233 Atherosclerosis of native arteries of right leg with ulceration of ankle; L97.311 Non-pressure chronic ulcer of right ankle limited to breakdown of skin; E11.52 Type 2 diabetes mellitus with diabetic peripheral angiopathy with gangrene; I96 Gangrene, not elsewhere classified; I11.0 Hypertensive heart disease with heart failure; I50.23 Acute on chronic systolic (congestive) heart failure; I25.110 Atherosclerotic heart disease of native coronary artery with unstable angina pectoris; I48.0 Paroxysmal atrial fibrillation; E78.5 Hyperlipidemia, unspecified; F17.210 Nicotine dependence, cigarettes, uncomplicated; Z95.1 Presence of aortocoronary bypass graft; Y83.5 Amputation of limb(s) as the cause of abnormal reaction of the patient, or of later complication, without mention of misadventure at the time of the procedure; Y83.2 Surgical operation with anastomosis, bypass or graft as the cause of abnormal reaction of the patient, or of later complication, without mention of misadventure at the time of the procedure | CPT/HCPCS: 11042; 97606 ==

== ENCOUNTER → 2022-04-07 | Outpatient (CLI) | payer OTHER | END | disposition home or self-care (01) | LOC: WHH 08:10 | PROVIDERS: ATTEND Podiatrist Foot & Ankle Surgery | DX: T87.81 Dehiscence of amputation stump (principal); T86.828 Other complications of skin graft (allograft) (autograft); E11.621 Type 2 diabetes mellitus with foot ulcer; I70.235 Atherosclerosis of native arteries of right leg with ulceration of other part of foot; L97.512 Non-pressure chronic ulcer of other part of right foot with fat layer exposed; I70.245 Atherosclerosis of native arteries of left leg with ulceration of other part of foot; L97.522 Non-pressure chronic ulcer of other part of left foot with fat layer exposed; E11.622 Type 2 diabetes mellitus with other skin ulcer; I70.233 Atherosclerosis of native arteries of right leg with ulceration of ankle; L97.311 Non-pressure chronic ulcer of right ankle limited to breakdown of skin; E11.52 Type 2 diabetes mellitus with diabetic peripheral angiopathy with gangrene; I96 Gangrene, not elsewhere classified; I11.0 Hypertensive heart disease with heart failure; I50.23 Acute on chronic systolic (congestive) heart failure; I25.110 Atherosclerotic heart disease of native coronary artery with unstable angina pectoris; I48.0 Paroxysmal atrial fibrillation; E78.5 Hyperlipidemia, unspecified; F17.210 Nicotine dependence, cigarettes, uncomplicated; Z95.1 Presence of aortocoronary bypass graft; Y83.5 Amputation of limb(s) as the cause of abnormal reaction of the patient, or of later complication, without mention of misadventure at the time of the procedure; Y83.2 Surgical operation with anastomosis, bypass or graft as the cause of abnormal reaction of the patient, or of later complication, without mention of misadventure at the time of the procedure | CPT/HCPCS: 11042 ==

== ENCOUNTER → 2022-04-14 | Outpatient (CLI) | payer OTHER | END | disposition home or self-care (01) | LOC: WHH 08:14 | PROVIDERS: ATTEND Podiatrist Foot & Ankle Surgery | DX: T87.81 Dehiscence of amputation stump (principal); T86.828 Other complications of skin graft (allograft) (autograft); E11.621 Type 2 diabetes mellitus with foot ulcer; I70.235 Atherosclerosis of native arteries of right leg with ulceration of other part of foot; L97.512 Non-pressure chronic ulcer of other part of right foot with fat layer exposed; I70.245 Atherosclerosis of native arteries of left leg with ulceration of other part of foot; L97.522 Non-pressure chronic ulcer of other part of left foot with fat layer exposed; E11.622 Type 2 diabetes mellitus with other skin ulcer; I70.233 Atherosclerosis of native arteries of right leg with ulceration of ankle; L97.311 Non-pressure chronic ulcer of right ankle limited to breakdown of skin; E11.52 Type 2 diabetes mellitus with diabetic peripheral angiopathy with gangrene; I96 Gangrene, not elsewhere classified; I11.0 Hypertensive heart disease with heart failure; I50.23 Acute on chronic systolic (congestive) heart failure; I25.110 Atherosclerotic heart disease of native coronary artery with unstable angina pectoris; I48.0 Paroxysmal atrial fibrillation; E78.5 Hyperlipidemia, unspecified; F17.210 Nicotine dependence, cigarettes, uncomplicated; Z95.1 Presence of aortocoronary bypass graft; Y83.5 Amputation of limb(s) as the cause of abnormal reaction of the patient, or of later complication, without mention of misadventure at the time of the procedure; Y83.2 Surgical operation with anastomosis, bypass or graft as the cause of abnormal reaction of the patient, or of later complication, without mention of misadventure at the time of the procedure | CPT/HCPCS: 11042; 87070; 87077; 87186; 97606 ==

== ENCOUNTER → 2022-04-21 | Outpatient (CLI) | payer OTHER | END | disposition home or self-care (01) | LOC: WHH 07:54 | PROVIDERS: ATTEND Podiatrist Foot & Ankle Surgery | DX: T87.81 Dehiscence of amputation stump (principal); T86.828 Other complications of skin graft (allograft) (autograft); E11.621 Type 2 diabetes mellitus with foot ulcer; I70.235 Atherosclerosis of native arteries of right leg with ulceration of other part of foot; L97.512 Non-pressure chronic ulcer of other part of right foot with fat layer exposed; I70.245 Atherosclerosis of native arteries of left leg with ulceration of other part of foot; L97.522 Non-pressure chronic ulcer of other part of left foot with fat layer exposed; E11.622 Type 2 diabetes mellitus with other skin ulcer; I70.233 Atherosclerosis of native arteries of right leg with ulceration of ankle; L97.311 Non-pressure chronic ulcer of right ankle limited to breakdown of skin; E11.52 Type 2 diabetes mellitus with diabetic peripheral angiopathy with gangrene; I96 Gangrene, not elsewhere classified; I11.0 Hypertensive heart disease with heart failure; I50.23 Acute on chronic systolic (congestive) heart failure; I25.110 Atherosclerotic heart disease of native coronary artery with unstable angina pectoris; I48.0 Paroxysmal atrial fibrillation; E78.5 Hyperlipidemia, unspecified; F17.210 Nicotine dependence, cigarettes, uncomplicated; Z95.1 Presence of aortocoronary bypass graft; Y83.5 Amputation of limb(s) as the cause of abnormal reaction of the patient, or of later complication, without mention of misadventure at the time of the procedure; Y83.2 Surgical operation with anastomosis, bypass or graft as the cause of abnormal reaction of the patient, or of later complication, without mention of misadventure at the time of the procedure | CPT/HCPCS: 11042; 97605 ==

== ENCOUNTER → 2022-04-28 | Outpatient (CLI) | payer OTHER | END | disposition home or self-care (01) | LOC: WHH 08:05 | PROVIDERS: ATTEND Podiatrist Foot & Ankle Surgery | DX: T87.81 Dehiscence of amputation stump (principal); T86.828 Other complications of skin graft (allograft) (autograft); E11.621 Type 2 diabetes mellitus with foot ulcer; I70.235 Atherosclerosis of native arteries of right leg with ulceration of other part of foot; L97.512 Non-pressure chronic ulcer of other part of right foot with fat layer exposed; I70.245 Atherosclerosis of native arteries of left leg with ulceration of other part of foot; L97.522 Non-pressure chronic ulcer of other part of left foot with fat layer exposed; E11.622 Type 2 diabetes mellitus with other skin ulcer; I70.233 Atherosclerosis of native arteries of right leg with ulceration of ankle; E11.52 Type 2 diabetes mellitus with diabetic peripheral angiopathy with gangrene; I96 Gangrene, not elsewhere classified; I11.0 Hypertensive heart disease with heart failure; I50.23 Acute on chronic systolic (congestive) heart failure; I25.110 Atherosclerotic heart disease of native coronary artery with unstable angina pectoris; I48.0 Paroxysmal atrial fibrillation; E78.5 Hyperlipidemia, unspecified; F17.210 Nicotine dependence, cigarettes, uncomplicated; Z95.1 Presence of aortocoronary bypass graft; Y83.5 Amputation of limb(s) as the cause of abnormal reaction of the patient, or of later complication, without mention of misadventure at the time of the procedure; Y83.2 Surgical operation with anastomosis, bypass or graft as the cause of abnormal reaction of the patient, or of later complication, without mention of misadventure at the time of the procedure | CPT/HCPCS: 11042; 97605 ==

== ENCOUNTER → 2022-05-05 | Outpatient (CLI) | payer OTHER ==
[~2022-05-05] MED LIST changes: +BENZ-39 PO; +CETI10TA87 PO
== END | disposition home or self-care (01) ==
LOC: WHH 07:56
PROVIDERS: ATTEND Podiatrist Foot & Ankle Surgery
DX: T87.81 Dehiscence of amputation stump (principal); T86.828 Other complications of skin graft (allograft) (autograft); E11.621 Type 2 diabetes mellitus with foot ulcer; I70.235 Atherosclerosis of native arteries of right leg with ulceration of other part of foot; L97.512 Non-pressure chronic ulcer of other part of right foot with fat layer exposed; I70.245 Atherosclerosis of native arteries of left leg with ulceration of other part of foot; L97.522 Non-pressure chronic ulcer of other part of left foot with fat layer exposed; E11.622 Type 2 diabetes mellitus with other skin ulcer; I70.233 Atherosclerosis of native arteries of right leg with ulceration of ankle; L97.311 Non-pressure chronic ulcer of right ankle limited to breakdown of skin; E11.52 Type 2 diabetes mellitus with diabetic peripheral angiopathy with gangrene; I96 Gangrene, not elsewhere classified; I11.0 Hypertensive heart disease with heart failure; I25.110 Atherosclerotic heart disease of native coronary artery with unstable angina pectoris; I50.23 Acute on chronic systolic (congestive) heart failure; I48.0 Paroxysmal atrial fibrillation; E78.5 Hyperlipidemia, unspecified; F17.210 Nicotine dependence, cigarettes, uncomplicated; Z95.1 Presence of aortocoronary bypass graft; Y83.5 Amputation of limb(s) as the cause of abnormal reaction of the patient, or of later complication, without mention of misadventure at the time of the procedure; Y83.2 Surgical operation with anastomosis, bypass or graft as the cause of abnormal reaction of the patient, or of later complication, without mention of misadventure at the time of the procedure
CPT/HCPCS: 11042; 97605

== ENCOUNTER → 2022-05-12 | Outpatient (CLI) | payer OTHER ==
[~2022-05-12] MED LIST changes: -BENZ-39 PO; -CETI10TA87 PO
== END | disposition home or self-care (01) ==
LOC: WHH 08:14
PROVIDERS: ATTEND Podiatrist Foot & Ankle Surgery
DX: T87.81 Dehiscence of amputation stump (principal); T86.828 Other complications of skin graft (allograft) (autograft); E11.621 Type 2 diabetes mellitus with foot ulcer; I70.235 Atherosclerosis of native arteries of right leg with ulceration of other part of foot; L97.512 Non-pressure chronic ulcer of other part of right foot with fat layer exposed; I70.245 Atherosclerosis of native arteries of left leg with ulceration of other part of foot; L97.522 Non-pressure chronic ulcer of other part of left foot with fat layer exposed; E11.622 Type 2 diabetes mellitus with other skin ulcer; I70.233 Atherosclerosis of native arteries of right leg with ulceration of ankle; L97.311 Non-pressure chronic ulcer of right ankle limited to breakdown of skin; E11.52 Type 2 diabetes mellitus with diabetic peripheral angiopathy with gangrene; I96 Gangrene, not elsewhere classified; I11.0 Hypertensive heart disease with heart failure; I50.23 Acute on chronic systolic (congestive) heart failure; I25.110 Atherosclerotic heart disease of native coronary artery with unstable angina pectoris; I48.0 Paroxysmal atrial fibrillation; E78.5 Hyperlipidemia, unspecified; F17.210 Nicotine dependence, cigarettes, uncomplicated; Z95.1 Presence of aortocoronary bypass graft; Y83.5 Amputation of limb(s) as the cause of abnormal reaction of the patient, or of later complication, without mention of misadventure at the time of the procedure; Y83.2 Surgical operation with anastomosis, bypass or graft as the cause of abnormal reaction of the patient, or of later complication, without mention of misadventure at the time of the procedure
CPT/HCPCS: 11042; 97605

== ENCOUNTER 2022-05-18 22:31 | Emergency (ER) | payer OTHER ==
[~2022-05-18] VITALS: Ht 175.3 cm; Wt 81.2 kg
[~2022-05-18 22:31] MED LIST changes: -LIDOCAINE HCL 4% LTA SOL 4 ML VIAL TP ONE
[2022-05-18 22:51] VITALS: BP 121/66
[2022-05-19] MEDS ORDERED: CETI10TA87 PO (01:04)
[2022-05-19] MEDS ORDERED: BENZ-39 PO (01:04)
== END 2022-05-19 01:45 | disposition home or self-care (01) ==
LOC: EDH 22:31
DX: U07.1 COVID-19 (principal); J06.9 Acute upper respiratory infection, unspecified; E11.51 Type 2 diabetes mellitus with diabetic peripheral angiopathy without gangrene; E78.00 Pure hypercholesterolemia, unspecified; I10 Essential (primary) hypertension; I25.10 Atherosclerotic heart disease of native coronary artery without angina pectoris; Z79.82 Long term (current) use of aspirin; Z79.899 Other long term (current) drug therapy
CPT/HCPCS: 99284; 87635; 87804 ×2; C9803

== ENCOUNTER → 2022-05-26 | Outpatient (CLI) | payer OTHER ==
[~2022-05-26] MED LIST changes: +BENZ-39 PO; +CETI10TA87 PO; +LIDOCAINE HCL 4% LTA SOL 4 ML VIAL TP ONE
== END | disposition home or self-care (01) ==
LOC: WHH 08:00
PROVIDERS: ATTEND Podiatrist Foot & Ankle Surgery
DX: T87.81 Dehiscence of amputation stump (principal); T86.828 Other complications of skin graft (allograft) (autograft); E11.621 Type 2 diabetes mellitus with foot ulcer; I70.235 Atherosclerosis of native arteries of right leg with ulceration of other part of foot; L97.512 Non-pressure chronic ulcer of other part of right foot with fat layer exposed; I70.245 Atherosclerosis of native arteries of left leg with ulceration of other part of foot; L97.522 Non-pressure chronic ulcer of other part of left foot with fat layer exposed; E11.622 Type 2 diabetes mellitus with other skin ulcer; I70.233 Atherosclerosis of native arteries of right leg with ulceration of ankle; L97.311 Non-pressure chronic ulcer of right ankle limited to breakdown of skin; E11.52 Type 2 diabetes mellitus with diabetic peripheral angiopathy with gangrene; I96 Gangrene, not elsewhere classified; I11.0 Hypertensive heart disease with heart failure; I50.23 Acute on chronic systolic (congestive) heart failure; I25.110 Atherosclerotic heart disease of native coronary artery with unstable angina pectoris; I48.0 Paroxysmal atrial fibrillation; E78.5 Hyperlipidemia, unspecified; F17.210 Nicotine dependence, cigarettes, uncomplicated; Z95.1 Presence of aortocoronary bypass graft; Y83.5 Amputation of limb(s) as the cause of abnormal reaction of the patient, or of later complication, without mention of misadventure at the time of the procedure; Y83.2 Surgical operation with anastomosis, bypass or graft as the cause of abnormal reaction of the patient, or of later complication, without mention of misadventure at the time of the procedure
CPT/HCPCS: 11042; 97605

== ENCOUNTER → 2022-06-09 | Outpatient (CLI) | payer OTHER | END | disposition home or self-care (01) | LOC: WHH 07:58 | PROVIDERS: ATTEND Podiatrist Foot & Ankle Surgery | DX: T87.81 Dehiscence of amputation stump (principal); T86.828 Other complications of skin graft (allograft) (autograft); E11.621 Type 2 diabetes mellitus with foot ulcer; I70.245 Atherosclerosis of native arteries of left leg with ulceration of other part of foot; L97.522 Non-pressure chronic ulcer of other part of left foot with fat layer exposed; I70.235 Atherosclerosis of native arteries of right leg with ulceration of other part of foot; L97.512 Non-pressure chronic ulcer of other part of right foot with fat layer exposed; E11.52 Type 2 diabetes mellitus with diabetic peripheral angiopathy with gangrene; I96 Gangrene, not elsewhere classified; I11.0 Hypertensive heart disease with heart failure; I50.23 Acute on chronic systolic (congestive) heart failure; I25.110 Atherosclerotic heart disease of native coronary artery with unstable angina pectoris; I48.0 Paroxysmal atrial fibrillation; E78.5 Hyperlipidemia, unspecified; F17.210 Nicotine dependence, cigarettes, uncomplicated; Z95.1 Presence of aortocoronary bypass graft; Y83.5 Amputation of limb(s) as the cause of abnormal reaction of the patient, or of later complication, without mention of misadventure at the time of the procedure; Y83.2 Surgical operation with anastomosis, bypass or graft as the cause of abnormal reaction of the patient, or of later complication, without mention of misadventure at the time of the procedure | CPT/HCPCS: 97605; G0463; L3260 ==

== ENCOUNTER → 2022-06-23 | Outpatient (CLI) | payer OTHER ==
[~2022-06-23] MED LIST changes: -LIDOCAINE HCL 4% LTA SOL 4 ML VIAL TP ONE
== END | disposition home or self-care (01) ==
LOC: WHH 08:13
PROVIDERS: ATTEND Podiatrist Foot & Ankle Surgery
DX: T87.81 Dehiscence of amputation stump (principal); T86.828 Other complications of skin graft (allograft) (autograft); E11.621 Type 2 diabetes mellitus with foot ulcer; I70.245 Atherosclerosis of native arteries of left leg with ulceration of other part of foot; L97.522 Non-pressure chronic ulcer of other part of left foot with fat layer exposed; I70.235 Atherosclerosis of native arteries of right leg with ulceration of other part of foot; L97.512 Non-pressure chronic ulcer of other part of right foot with fat layer exposed; E11.52 Type 2 diabetes mellitus with diabetic peripheral angiopathy with gangrene; I96 Gangrene, not elsewhere classified; I11.0 Hypertensive heart disease with heart failure; I50.23 Acute on chronic systolic (congestive) heart failure; I25.110 Atherosclerotic heart disease of native coronary artery with unstable angina pectoris; I48.0 Paroxysmal atrial fibrillation; E78.5 Hyperlipidemia, unspecified; F17.210 Nicotine dependence, cigarettes, uncomplicated; Z95.1 Presence of aortocoronary bypass graft; Y83.5 Amputation of limb(s) as the cause of abnormal reaction of the patient, or of later complication, without mention of misadventure at the time of the procedure; Y83.2 Surgical operation with anastomosis, bypass or graft as the cause of abnormal reaction of the patient, or of later complication, without mention of misadventure at the time of the procedure
CPT/HCPCS: G0463; A6209; A4450

== ENCOUNTER → 2022-07-07 | Outpatient (CLI) | payer OTHER ==
[~2022-07-07] MED LIST changes: +LIDOCAINE HCL 4% LTA SOL 4 ML VIAL TP ONE
== END | disposition home or self-care (01) ==
LOC: WHH 08:12
PROVIDERS: ATTEND Podiatrist Foot & Ankle Surgery
DX: T87.81 Dehiscence of amputation stump (principal); T86.828 Other complications of skin graft (allograft) (autograft); E11.621 Type 2 diabetes mellitus with foot ulcer; I70.235 Atherosclerosis of native arteries of right leg with ulceration of other part of foot; L97.512 Non-pressure chronic ulcer of other part of right foot with fat layer exposed; I70.245 Atherosclerosis of native arteries of left leg with ulceration of other part of foot; L97.522 Non-pressure chronic ulcer of other part of left foot with fat layer exposed; E11.52 Type 2 diabetes mellitus with diabetic peripheral angiopathy with gangrene; I96 Gangrene, not elsewhere classified; I11.0 Hypertensive heart disease with heart failure; I50.23 Acute on chronic systolic (congestive) heart failure; I25.110 Atherosclerotic heart disease of native coronary artery with unstable angina pectoris; I48.0 Paroxysmal atrial fibrillation; E78.5 Hyperlipidemia, unspecified; F17.210 Nicotine dependence, cigarettes, uncomplicated; Z95.1 Presence of aortocoronary bypass graft; Y83.5 Amputation of limb(s) as the cause of abnormal reaction of the patient, or of later complication, without mention of misadventure at the time of the procedure; Y83.2 Surgical operation with anastomosis, bypass or graft as the cause of abnormal reaction of the patient, or of later complication, without mention of misadventure at the time of the procedure
CPT/HCPCS: 11042; 11045; A6209; A4450

== ENCOUNTER 2022-08-02 09:59 | Observation (INO) | payer OTHER ==
[~2022-08-02] VITALS: Ht 177.8 cm; Wt 77.1 kg
[~2022-08-02 09:59] MED LIST changes: -LIDOCAINE HCL 4% LTA SOL 4 ML VIAL TP ONE
[2022-08-02] MEDS ORDERED: MORPHINE 4 MG SYG IVP ONE (13:30)
[2022-08-02] MEDS ORDERED: ZOSYN 3.375GM +NS 50ML IV ONE (13:30)
[2022-08-02] MEDS ORDERED: ONDANSETRON 4MG INJ IVP ONE (13:30)
[2022-08-02] MEDS ORDERED: VANCOMYCIN 1G VIAL IVPB ONE (13:30)
[2022-08-02] MEDS ORDERED: 0.9%NACL 1000ML 1,000 ML IV ONE ×2 (13:30→14:30)
[2022-08-02 13:35] LABS: BASOPHILS % (AUTO) 0.4 % (0.0-5.0); EOSINOPHILS % (AUTO) 1.3 % (0.0-8.0); HEMATOCRIT 42.6 % (42-54); LYMPHOCYTES % (AUTO) 25.5 % (21.0-51.0); MEAN CORPUSCULAR HEMOGLOBIN 26.5 pg (27.0-33.0); MEAN CORPUSCULAR HGB CONC 32.6 g/dL (32.0-36.0); MEAN CORPUSCULAR VOLUME 81.1 fL (79-99); MONOCYTES % (AUTO) 7.9 % (3.0-13.0); NEUTROPHILS % (AUTO) 64.5 % (40.0-77.0); PLATELET COUNT (AUTO) 239 K/uL (130-400); RED BLOOD CELL COUNT(AUTO) 5.25 MIL/uL (4.50-6.20); RED CELL DISTRIBUTION WIDTH 15.5 % (11.0-15.5); WHITE BLOOD COUNT (AUTO) 9.5 K/uL (4.8-10.8)
[2022-08-02 13:52] LABS: ALBUMIN 3.8 g/dL (3.5-5.0); CREATININE 1.2 mg/dL (0.5-1.5); POTASSIUM 4.4 mmol/L (3.5-5.1); TOTAL PROTEIN, SERUM 8.6 g/dL (6.0-8.3)
[2022-08-02] MEDS ORDERED: 0.9% NACL 500ML IV.SOLN 500 ML IV ONE (14:30)
[2022-08-02] MEDS ORDERED: VANCOMYCIN 1G/250ML KIT 250 ML IV ONE ×2 (14:54→20:53)
[2022-08-02 15:18] LABS: ERYTHROCYTE SEDIMENTATION RATE 52 MM/HR (0-20)
[2022-08-02] MEDS ORDERED: ONDANSETRON 4MG INJ IV PRN (16:30)
[2022-08-02] MEDS ORDERED: ACETAMINOPHEN 325 MG TAB PO PRN ×2 (16:30)
[2022-08-02] MEDS ORDERED: VANCOMYCIN PROTOCOL PER PHARMACY IV PRN (16:30)
[2022-08-02] MEDS ORDERED: MORPHINE 2 MG SYG IV PRN (16:30)
[2022-08-02] MEDS: 0.9%NACL 1000ML 1,000 ML IV SCH (17:19)
[2022-08-02 17:49] LABS: HEMOGLOBIN A1C 10.6 % (4.0-6.0)
[2022-08-02] MEDS ORDERED: 0.9%NACL 1000ML 1,000 ML IV SCH (19:00)
[2022-08-02] MEDS: INSULIN HUMULIN R 100 UNIT/ML 3ML SQ SCH (20:22)
[2022-08-02] MEDS ORDERED: FAMOTIDINE 20MG VIAL IV SCH (21:00)
[2022-08-02] MEDS: ZOSYN 3.375GM+NS 50ML 50 ML IV SCH (21:24)
[2022-08-02] MEDS ORDERED: VANCOMYCIN 1G/250ML KIT 250 ML IV SCH (23:00)
[2022-08-03] MEDS: 0.9%NACL 1000ML 1,000 ML IV SCH (02:30)
[2022-08-03] MEDS: ZOSYN 3.375GM+NS 50ML 50 ML IV SCH (04:32)
[2022-08-03 06:25] LABS: BASOPHILS % (AUTO) 0.3 % (0.0-5.0); EOSINOPHILS % (AUTO) 1.8 % (0.0-8.0); HEMATOCRIT 34.6 % (42-54); LYMPHOCYTES % (AUTO) 21.7 % (21.0-51.0); MEAN CORPUSCULAR HEMOGLOBIN 27.1 pg (27.0-33.0); MEAN CORPUSCULAR HGB CONC 33.2 g/dL (32.0-36.0); MEAN CORPUSCULAR VOLUME 81.4 fL (79-99); NEUTROPHILS % (AUTO) 66.9 % (40.0-77.0); PLATELET COUNT (AUTO) 157 K/uL (130-400); RED BLOOD CELL COUNT(AUTO) 4.25 MIL/uL (4.50-6.20); RED CELL DISTRIBUTION WIDTH 15.3 % (11.0-15.5); WHITE BLOOD COUNT (AUTO) 7.1 K/uL (4.8-10.8)
[2022-08-03 06:46] LABS: ALBUMIN 2.9 g/dL (3.5-5.0); POTASSIUM 3.8 mmol/L (3.5-5.1); TOTAL PROTEIN, SERUM 6.7 g/dL (6.0-8.3)
[2022-08-03 07:09] LABS: B-TYPE NATRIURETIC PEPTIDE 347 pg/mL (0-100)
[2022-08-03] MEDS: INSULIN HUMULIN R 100 UNIT/ML 3ML SQ SCH (07:30)
[2022-08-03 08:10] VITALS: BP 142/71
[2022-08-03] MEDS ORDERED: LEVO-70 PO (08:25)
[2022-08-03] MEDS ORDERED: FUROSEMIDE 40 MG TABLET PO SCH (09:00)
== END 2022-08-03 09:54 | disposition home or self-care (01) ==
LOC: EDH 09:59 → EDHIP 16:22 → INTOOBSV 16:22 → EDHIP 08-03 09:54
PROVIDERS: ADMIT Hospitalist; ATTEND Hospitalist
DX: A41.9 Sepsis, unspecified organism (principal); E11.621 Type 2 diabetes mellitus with foot ulcer; L97.519 Non-pressure chronic ulcer of other part of right foot with unspecified severity; E11.65 Type 2 diabetes mellitus with hyperglycemia; L03.115 Cellulitis of right lower limb; I10 Essential (primary) hypertension; E78.00 Pure hypercholesterolemia, unspecified; I25.10 Atherosclerotic heart disease of native coronary artery without angina pectoris; E78.5 Hyperlipidemia, unspecified; I42.9 Cardiomyopathy, unspecified; M85.80 Other specified disorders of bone density and structure, unspecified site; F17.200 Nicotine dependence, unspecified, uncomplicated; Z95.810 Presence of automatic (implantable) cardiac defibrillator; Z95.1 Presence of aortocoronary bypass graft; Z79.899 Other long term (current) drug therapy
CPT/HCPCS: 99285; 96365; 96361 ×2; 96375; 93926; 96366 ×2; 96376; 96368; 83036; 80053 ×2; 85025 ×2; 85651; 87040 ×2; 82948 ×2; 83605 ×2; 82010; 36415 ×2; 73630; 83880; 84145; J3490; J7030; J2405; J2270; J2543 ×2; J3370 ×2; G0378

== ENCOUNTER → 2022-08-04 | Outpatient (CLI) | payer OTHER ==
[~2022-08-04] MED LIST changes: +LEVO-70 PO
== END | disposition home or self-care (01) ==
LOC: WHH 08:04
PROVIDERS: ATTEND Podiatrist Foot & Ankle Surgery
DX: T87.81 Dehiscence of amputation stump (principal); T86.828 Other complications of skin graft (allograft) (autograft); E11.621 Type 2 diabetes mellitus with foot ulcer; I70.235 Atherosclerosis of native arteries of right leg with ulceration of other part of foot; L97.512 Non-pressure chronic ulcer of other part of right foot with fat layer exposed; I70.245 Atherosclerosis of native arteries of left leg with ulceration of other part of foot; L97.522 Non-pressure chronic ulcer of other part of left foot with fat layer exposed; E11.52 Type 2 diabetes mellitus with diabetic peripheral angiopathy with gangrene; I96 Gangrene, not elsewhere classified; I11.0 Hypertensive heart disease with heart failure; I50.23 Acute on chronic systolic (congestive) heart failure; I25.110 Atherosclerotic heart disease of native coronary artery with unstable angina pectoris; I48.0 Paroxysmal atrial fibrillation; E78.5 Hyperlipidemia, unspecified; F17.210 Nicotine dependence, cigarettes, uncomplicated; Z95.1 Presence of aortocoronary bypass graft; Y83.5 Amputation of limb(s) as the cause of abnormal reaction of the patient, or of later complication, without mention of misadventure at the time of the procedure; Y83.2 Surgical operation with anastomosis, bypass or graft as the cause of abnormal reaction of the patient, or of later complication, without mention of misadventure at the time of the procedure
CPT/HCPCS: G0463; A6209

== ENCOUNTER → 2022-08-25 | Outpatient (CLI) | payer OTHER ==
[~2022-08-25] MED LIST changes: +LIDOCAINE HCL 4% LTA SOL 4 ML VIAL TP ONE
== END | disposition home or self-care (01) ==
LOC: WHH 08:03
PROVIDERS: ATTEND Podiatrist Foot & Ankle Surgery
DX: T87.81 Dehiscence of amputation stump (principal); T86.828 Other complications of skin graft (allograft) (autograft); E11.621 Type 2 diabetes mellitus with foot ulcer; I70.235 Atherosclerosis of native arteries of right leg with ulceration of other part of foot; L97.512 Non-pressure chronic ulcer of other part of right foot with fat layer exposed; I70.245 Atherosclerosis of native arteries of left leg with ulceration of other part of foot; L97.522 Non-pressure chronic ulcer of other part of left foot with fat layer exposed; E11.52 Type 2 diabetes mellitus with diabetic peripheral angiopathy with gangrene; I96 Gangrene, not elsewhere classified; I11.0 Hypertensive heart disease with heart failure; I50.23 Acute on chronic systolic (congestive) heart failure; I25.110 Atherosclerotic heart disease of native coronary artery with unstable angina pectoris; I48.0 Paroxysmal atrial fibrillation; E78.5 Hyperlipidemia, unspecified; F17.210 Nicotine dependence, cigarettes, uncomplicated; Z95.1 Presence of aortocoronary bypass graft; Y83.2 Surgical operation with anastomosis, bypass or graft as the cause of abnormal reaction of the patient, or of later complication, without mention of misadventure at the time of the procedure; Y83.5 Amputation of limb(s) as the cause of abnormal reaction of the patient, or of later complication, without mention of misadventure at the time of the procedure
CPT/HCPCS: G0463; A6209

== ENCOUNTER → 2022-09-22 | Outpatient (CLI) | payer OTHER ==
[~2022-09-22] MED LIST changes: -LIDOCAINE HCL 4% LTA SOL 4 ML VIAL TP ONE
== END | disposition home or self-care (01) ==
LOC: WHH 09:01
PROVIDERS: ATTEND Podiatrist Foot & Ankle Surgery
DX: T87.81 Dehiscence of amputation stump (principal); T86.828 Other complications of skin graft (allograft) (autograft); E11.621 Type 2 diabetes mellitus with foot ulcer; I70.235 Atherosclerosis of native arteries of right leg with ulceration of other part of foot; L97.512 Non-pressure chronic ulcer of other part of right foot with fat layer exposed; I70.245 Atherosclerosis of native arteries of left leg with ulceration of other part of foot; L97.522 Non-pressure chronic ulcer of other part of left foot with fat layer exposed; E11.52 Type 2 diabetes mellitus with diabetic peripheral angiopathy with gangrene; I96 Gangrene, not elsewhere classified; I11.0 Hypertensive heart disease with heart failure; I50.23 Acute on chronic systolic (congestive) heart failure; I25.110 Atherosclerotic heart disease of native coronary artery with unstable angina pectoris; I48.0 Paroxysmal atrial fibrillation; E78.5 Hyperlipidemia, unspecified; F17.210 Nicotine dependence, cigarettes, uncomplicated; Z95.1 Presence of aortocoronary bypass graft; Y83.5 Amputation of limb(s) as the cause of abnormal reaction of the patient, or of later complication, without mention of misadventure at the time of the procedure; Y83.2 Surgical operation with anastomosis, bypass or graft as the cause of abnormal reaction of the patient, or of later complication, without mention of misadventure at the time of the procedure
CPT/HCPCS: 11042; 11045; A6209; A6022

== ENCOUNTER → 2022-10-06 | Outpatient (CLI) | payer OTHER ==
[~2022-10-06] MED LIST changes: +LIDOCAINE HCL 4% LTA SOL 4 ML VIAL TP ONE
== END | disposition home or self-care (01) ==
LOC: WHH 08:13
PROVIDERS: ATTEND Podiatrist Foot & Ankle Surgery
DX: T87.81 Dehiscence of amputation stump (principal); E11.621 Type 2 diabetes mellitus with foot ulcer; I70.235 Atherosclerosis of native arteries of right leg with ulceration of other part of foot; L97.512 Non-pressure chronic ulcer of other part of right foot with fat layer exposed; I70.245 Atherosclerosis of native arteries of left leg with ulceration of other part of foot; L97.522 Non-pressure chronic ulcer of other part of left foot with fat layer exposed; E11.52 Type 2 diabetes mellitus with diabetic peripheral angiopathy with gangrene; I96 Gangrene, not elsewhere classified; I11.0 Hypertensive heart disease with heart failure; I50.23 Acute on chronic systolic (congestive) heart failure; I48.0 Paroxysmal atrial fibrillation; E78.5 Hyperlipidemia, unspecified; I25.110 Atherosclerotic heart disease of native coronary artery with unstable angina pectoris; F17.210 Nicotine dependence, cigarettes, uncomplicated; Z95.1 Presence of aortocoronary bypass graft; Y83.5 Amputation of limb(s) as the cause of abnormal reaction of the patient, or of later complication, without mention of misadventure at the time of the procedure
CPT/HCPCS: 11042; A6209; A4450

== ENCOUNTER → 2022-10-20 | Outpatient (CLI) | payer OTHER ==
[~2022-10-20] MED LIST changes: -LIDOCAINE HCL 4% LTA SOL 4 ML VIAL TP ONE
== END | disposition home or self-care (01) ==
LOC: WHH 08:12
PROVIDERS: ATTEND Podiatrist Foot & Ankle Surgery
DX: T87.81 Dehiscence of amputation stump (principal); E11.621 Type 2 diabetes mellitus with foot ulcer; I70.235 Atherosclerosis of native arteries of right leg with ulceration of other part of foot; L97.512 Non-pressure chronic ulcer of other part of right foot with fat layer exposed; I70.245 Atherosclerosis of native arteries of left leg with ulceration of other part of foot; L97.522 Non-pressure chronic ulcer of other part of left foot with fat layer exposed; E11.52 Type 2 diabetes mellitus with diabetic peripheral angiopathy with gangrene; I96 Gangrene, not elsewhere classified; I11.0 Hypertensive heart disease with heart failure; I50.23 Acute on chronic systolic (congestive) heart failure; I48.0 Paroxysmal atrial fibrillation; E78.5 Hyperlipidemia, unspecified; I25.110 Atherosclerotic heart disease of native coronary artery with unstable angina pectoris; F17.210 Nicotine dependence, cigarettes, uncomplicated; Z95.1 Presence of aortocoronary bypass graft; Y83.5 Amputation of limb(s) as the cause of abnormal reaction of the patient, or of later complication, without mention of misadventure at the time of the procedure
CPT/HCPCS: 11042; A6209; L3260

== ENCOUNTER → 2022-11-03 | Outpatient (CLI) | payer OTHER ==
[~2022-11-03] MED LIST changes: +LIDOCAINE HCL 4% LTA SOL 4 ML VIAL TP ONE
== END | disposition home or self-care (01) ==
LOC: WHH 08:11
PROVIDERS: ATTEND Podiatrist Foot & Ankle Surgery
DX: T87.81 Dehiscence of amputation stump (principal); E11.621 Type 2 diabetes mellitus with foot ulcer; I70.235 Atherosclerosis of native arteries of right leg with ulceration of other part of foot; L97.512 Non-pressure chronic ulcer of other part of right foot with fat layer exposed; I70.245 Atherosclerosis of native arteries of left leg with ulceration of other part of foot; L97.522 Non-pressure chronic ulcer of other part of left foot with fat layer exposed; E11.52 Type 2 diabetes mellitus with diabetic peripheral angiopathy with gangrene; I96 Gangrene, not elsewhere classified; I11.0 Hypertensive heart disease with heart failure; I50.23 Acute on chronic systolic (congestive) heart failure; I48.0 Paroxysmal atrial fibrillation; E78.5 Hyperlipidemia, unspecified; I25.110 Atherosclerotic heart disease of native coronary artery with unstable angina pectoris; F17.210 Nicotine dependence, cigarettes, uncomplicated; Z95.1 Presence of aortocoronary bypass graft; Y83.5 Amputation of limb(s) as the cause of abnormal reaction of the patient, or of later complication, without mention of misadventure at the time of the procedure
CPT/HCPCS: 11042; A6209; A4450

== ENCOUNTER → 2022-11-17 | Outpatient (CLI) | payer OTHER ==
[~2022-11-17] MED LIST changes: -LIDOCAINE HCL 4% LTA SOL 4 ML VIAL TP ONE
== END | disposition home or self-care (01) ==
LOC: WHH 08:08
PROVIDERS: ATTEND Podiatrist Foot & Ankle Surgery
DX: T87.81 Dehiscence of amputation stump (principal); E11.621 Type 2 diabetes mellitus with foot ulcer; I70.235 Atherosclerosis of native arteries of right leg with ulceration of other part of foot; L97.512 Non-pressure chronic ulcer of other part of right foot with fat layer exposed; I70.245 Atherosclerosis of native arteries of left leg with ulceration of other part of foot; L97.522 Non-pressure chronic ulcer of other part of left foot with fat layer exposed; E11.52 Type 2 diabetes mellitus with diabetic peripheral angiopathy with gangrene; I96 Gangrene, not elsewhere classified; I11.0 Hypertensive heart disease with heart failure; I50.23 Acute on chronic systolic (congestive) heart failure; I48.0 Paroxysmal atrial fibrillation; E78.5 Hyperlipidemia, unspecified; I25.110 Atherosclerotic heart disease of native coronary artery with unstable angina pectoris; F17.210 Nicotine dependence, cigarettes, uncomplicated; Z95.1 Presence of aortocoronary bypass graft; Y83.5 Amputation of limb(s) as the cause of abnormal reaction of the patient, or of later complication, without mention of misadventure at the time of the procedure
CPT/HCPCS: G0463; A6209

== ENCOUNTER → 2022-12-15 | Outpatient (CLI) | payer OTHER ==
[~2022-12-15] MED LIST changes: +LIDOCAINE HCL 4% LTA SOL 4 ML VIAL TP ONE
== END | disposition home or self-care (01) ==
LOC: WHH 08:06
PROVIDERS: ATTEND Podiatrist Foot & Ankle Surgery
DX: E11.621 Type 2 diabetes mellitus with foot ulcer (principal); I70.235 Atherosclerosis of native arteries of right leg with ulceration of other part of foot; L97.512 Non-pressure chronic ulcer of other part of right foot with fat layer exposed; I70.245 Atherosclerosis of native arteries of left leg with ulceration of other part of foot; L97.522 Non-pressure chronic ulcer of other part of left foot with fat layer exposed; E11.52 Type 2 diabetes mellitus with diabetic peripheral angiopathy with gangrene; I96 Gangrene, not elsewhere classified; I11.0 Hypertensive heart disease with heart failure; I50.23 Acute on chronic systolic (congestive) heart failure; I48.0 Paroxysmal atrial fibrillation; E78.5 Hyperlipidemia, unspecified; I25.110 Atherosclerotic heart disease of native coronary artery with unstable angina pectoris; F17.210 Nicotine dependence, cigarettes, uncomplicated; Z95.1 Presence of aortocoronary bypass graft
CPT/HCPCS: G0463; A6209; A4450

== ENCOUNTER → 2022-12-29 | Outpatient (CLI) | payer OTHER ==
[~2022-12-29] MED LIST changes: -LIDOCAINE HCL 4% LTA SOL 4 ML VIAL TP ONE
== END | disposition home or self-care (01) ==
LOC: WHH 08:12
PROVIDERS: ATTEND Podiatrist Foot & Ankle Surgery
DX: E11.621 Type 2 diabetes mellitus with foot ulcer (principal); I70.235 Atherosclerosis of native arteries of right leg with ulceration of other part of foot; L97.512 Non-pressure chronic ulcer of other part of right foot with fat layer exposed; I70.245 Atherosclerosis of native arteries of left leg with ulceration of other part of foot; L97.522 Non-pressure chronic ulcer of other part of left foot with fat layer exposed; E11.52 Type 2 diabetes mellitus with diabetic peripheral angiopathy with gangrene; I96 Gangrene, not elsewhere classified; I11.0 Hypertensive heart disease with heart failure; I50.23 Acute on chronic systolic (congestive) heart failure; I48.0 Paroxysmal atrial fibrillation; E78.5 Hyperlipidemia, unspecified; I25.110 Atherosclerotic heart disease of native coronary artery with unstable angina pectoris; F17.210 Nicotine dependence, cigarettes, uncomplicated; Z95.1 Presence of aortocoronary bypass graft
CPT/HCPCS: G0463; A6209

== ENCOUNTER → 2023-01-12 | Outpatient (CLI) | payer OTHER | END | disposition home or self-care (01) | LOC: WHH 08:02 | PROVIDERS: ATTEND Podiatrist Foot & Ankle Surgery | DX: T87.89 Other complications of amputation stump (principal); E11.621 Type 2 diabetes mellitus with foot ulcer; I70.235 Atherosclerosis of native arteries of right leg with ulceration of other part of foot; L97.512 Non-pressure chronic ulcer of other part of right foot with fat layer exposed; I70.245 Atherosclerosis of native arteries of left leg with ulceration of other part of foot; L97.522 Non-pressure chronic ulcer of other part of left foot with fat layer exposed; E11.52 Type 2 diabetes mellitus with diabetic peripheral angiopathy with gangrene; I11.0 Hypertensive heart disease with heart failure; I96 Gangrene, not elsewhere classified; I50.23 Acute on chronic systolic (congestive) heart failure; I48.0 Paroxysmal atrial fibrillation; E78.5 Hyperlipidemia, unspecified; I25.110 Atherosclerotic heart disease of native coronary artery with unstable angina pectoris; F17.210 Nicotine dependence, cigarettes, uncomplicated; Z95.1 Presence of aortocoronary bypass graft; Y83.5 Amputation of limb(s) as the cause of abnormal reaction of the patient, or of later complication, without mention of misadventure at the time of the procedure | CPT/HCPCS: 11042; A6209; A4450 ==

== ENCOUNTER → 2023-01-26 | Outpatient (CLI) | payer OTHER ==
[~2023-01-26] MED LIST changes: +LIDOCAINE HCL 4% LTA SOL 4 ML VIAL TP ONE
== END | disposition home or self-care (01) ==
LOC: WHH 08:20
PROVIDERS: ATTEND Podiatrist Foot & Ankle Surgery
DX: T87.89 Other complications of amputation stump (principal); E11.621 Type 2 diabetes mellitus with foot ulcer; I70.235 Atherosclerosis of native arteries of right leg with ulceration of other part of foot; L97.512 Non-pressure chronic ulcer of other part of right foot with fat layer exposed; I70.245 Atherosclerosis of native arteries of left leg with ulceration of other part of foot; L97.522 Non-pressure chronic ulcer of other part of left foot with fat layer exposed; E11.52 Type 2 diabetes mellitus with diabetic peripheral angiopathy with gangrene; I96 Gangrene, not elsewhere classified; I11.0 Hypertensive heart disease with heart failure; I50.23 Acute on chronic systolic (congestive) heart failure; I48.0 Paroxysmal atrial fibrillation; E78.5 Hyperlipidemia, unspecified; I25.110 Atherosclerotic heart disease of native coronary artery with unstable angina pectoris; F17.210 Nicotine dependence, cigarettes, uncomplicated; Z95.1 Presence of aortocoronary bypass graft; Y83.5 Amputation of limb(s) as the cause of abnormal reaction of the patient, or of later complication, without mention of misadventure at the time of the procedure
CPT/HCPCS: 15275; Q4133; A6196

== ENCOUNTER → 2023-02-02 | Outpatient (CLI) | payer OTHER | END | disposition home or self-care (01) | LOC: WHH 08:02 | PROVIDERS: ATTEND Podiatrist Foot & Ankle Surgery | DX: T87.89 Other complications of amputation stump (principal); E11.621 Type 2 diabetes mellitus with foot ulcer; I70.235 Atherosclerosis of native arteries of right leg with ulceration of other part of foot; L97.512 Non-pressure chronic ulcer of other part of right foot with fat layer exposed; I70.245 Atherosclerosis of native arteries of left leg with ulceration of other part of foot; L97.522 Non-pressure chronic ulcer of other part of left foot with fat layer exposed; E11.52 Type 2 diabetes mellitus with diabetic peripheral angiopathy with gangrene; I96 Gangrene, not elsewhere classified; I11.0 Hypertensive heart disease with heart failure; I50.23 Acute on chronic systolic (congestive) heart failure; I48.0 Paroxysmal atrial fibrillation; E78.5 Hyperlipidemia, unspecified; I25.110 Atherosclerotic heart disease of native coronary artery with unstable angina pectoris; F17.210 Nicotine dependence, cigarettes, uncomplicated; Z95.1 Presence of aortocoronary bypass graft; Y83.5 Amputation of limb(s) as the cause of abnormal reaction of the patient, or of later complication, without mention of misadventure at the time of the procedure | CPT/HCPCS: 15275; A6209; Q4133 ==

== ENCOUNTER → 2023-02-09 | Outpatient (CLI) | payer OTHER | END | disposition home or self-care (01) | LOC: WHH 08:13 | PROVIDERS: ATTEND Podiatrist Foot & Ankle Surgery | DX: T87.89 Other complications of amputation stump (principal); E11.621 Type 2 diabetes mellitus with foot ulcer; I70.235 Atherosclerosis of native arteries of right leg with ulceration of other part of foot; L97.512 Non-pressure chronic ulcer of other part of right foot with fat layer exposed; I70.245 Atherosclerosis of native arteries of left leg with ulceration of other part of foot; L97.522 Non-pressure chronic ulcer of other part of left foot with fat layer exposed; E11.52 Type 2 diabetes mellitus with diabetic peripheral angiopathy with gangrene; I96 Gangrene, not elsewhere classified; I11.0 Hypertensive heart disease with heart failure; I50.23 Acute on chronic systolic (congestive) heart failure; I48.0 Paroxysmal atrial fibrillation; E78.5 Hyperlipidemia, unspecified; I25.110 Atherosclerotic heart disease of native coronary artery with unstable angina pectoris; F17.210 Nicotine dependence, cigarettes, uncomplicated; Z95.1 Presence of aortocoronary bypass graft; Y83.5 Amputation of limb(s) as the cause of abnormal reaction of the patient, or of later complication, without mention of misadventure at the time of the procedure | CPT/HCPCS: 15275; A6209; Q4133; A4450 ==

== ENCOUNTER → 2023-02-16 | Outpatient (CLI) | payer OTHER ==
[~2023-02-16] MED LIST changes: -LIDOCAINE HCL 4% LTA SOL 4 ML VIAL TP ONE
== END | disposition home or self-care (01) ==
LOC: WHH 08:04
PROVIDERS: ATTEND Podiatrist Foot & Ankle Surgery
DX: T87.89 Other complications of amputation stump (principal); E11.621 Type 2 diabetes mellitus with foot ulcer; I70.235 Atherosclerosis of native arteries of right leg with ulceration of other part of foot; L97.512 Non-pressure chronic ulcer of other part of right foot with fat layer exposed; I70.245 Atherosclerosis of native arteries of left leg with ulceration of other part of foot; L97.522 Non-pressure chronic ulcer of other part of left foot with fat layer exposed; E11.52 Type 2 diabetes mellitus with diabetic peripheral angiopathy with gangrene; I96 Gangrene, not elsewhere classified; I11.0 Hypertensive heart disease with heart failure; I50.23 Acute on chronic systolic (congestive) heart failure; I48.0 Paroxysmal atrial fibrillation; E78.5 Hyperlipidemia, unspecified; I25.110 Atherosclerotic heart disease of native coronary artery with unstable angina pectoris; F17.210 Nicotine dependence, cigarettes, uncomplicated; Z95.1 Presence of aortocoronary bypass graft; Y83.5 Amputation of limb(s) as the cause of abnormal reaction of the patient, or of later complication, without mention of misadventure at the time of the procedure
CPT/HCPCS: 15275; 82948; A6209; Q4133

== ENCOUNTER → 2023-02-23 | Outpatient (CLI) | payer OTHER | END | disposition home or self-care (01) | LOC: WHH 07:48 | PROVIDERS: ATTEND Podiatrist Foot & Ankle Surgery | DX: T87.89 Other complications of amputation stump (principal); E11.621 Type 2 diabetes mellitus with foot ulcer; I70.235 Atherosclerosis of native arteries of right leg with ulceration of other part of foot; L97.512 Non-pressure chronic ulcer of other part of right foot with fat layer exposed; I70.245 Atherosclerosis of native arteries of left leg with ulceration of other part of foot; L97.522 Non-pressure chronic ulcer of other part of left foot with fat layer exposed; E11.52 Type 2 diabetes mellitus with diabetic peripheral angiopathy with gangrene; I96 Gangrene, not elsewhere classified; I11.0 Hypertensive heart disease with heart failure; I50.23 Acute on chronic systolic (congestive) heart failure; I48.0 Paroxysmal atrial fibrillation; E78.5 Hyperlipidemia, unspecified; I25.110 Atherosclerotic heart disease of native coronary artery with unstable angina pectoris; F17.210 Nicotine dependence, cigarettes, uncomplicated; Z95.1 Presence of aortocoronary bypass graft; Y83.5 Amputation of limb(s) as the cause of abnormal reaction of the patient, or of later complication, without mention of misadventure at the time of the procedure | CPT/HCPCS: 15275; A6209; Q4133 ==

== ENCOUNTER → 2023-03-02 | Outpatient (CLI) | payer OTHER | END | disposition home or self-care (01) | LOC: WHH 08:08 | PROVIDERS: ATTEND Podiatrist Foot & Ankle Surgery | DX: E11.621 Type 2 diabetes mellitus with foot ulcer (principal); I70.235 Atherosclerosis of native arteries of right leg with ulceration of other part of foot; L97.512 Non-pressure chronic ulcer of other part of right foot with fat layer exposed; I70.245 Atherosclerosis of native arteries of left leg with ulceration of other part of foot; L97.522 Non-pressure chronic ulcer of other part of left foot with fat layer exposed; I25.110 Atherosclerotic heart disease of native coronary artery with unstable angina pectoris; I11.0 Hypertensive heart disease with heart failure; I50.23 Acute on chronic systolic (congestive) heart failure; E11.52 Type 2 diabetes mellitus with diabetic peripheral angiopathy with gangrene; I96 Gangrene, not elsewhere classified; I48.0 Paroxysmal atrial fibrillation; E78.5 Hyperlipidemia, unspecified; F17.210 Nicotine dependence, cigarettes, uncomplicated; Z95.1 Presence of aortocoronary bypass graft; Z89.432 Acquired absence of left foot; Z79.84 Long term (current) use of oral hypoglycemic drugs; Z79.4 Long term (current) use of insulin; Z79.899 Other long term (current) drug therapy | CPT/HCPCS: 15275; A6209; Q4133; A6207 ==

== ENCOUNTER → 2023-03-30 | Outpatient (CLI) | payer OTHER | END | disposition home or self-care (01) | LOC: WHH 08:24 | PROVIDERS: ATTEND Podiatrist Foot & Ankle Surgery | DX: T87.89 Other complications of amputation stump (principal); E11.621 Type 2 diabetes mellitus with foot ulcer; I70.245 Atherosclerosis of native arteries of left leg with ulceration of other part of foot; L97.522 Non-pressure chronic ulcer of other part of left foot with fat layer exposed; L97.512 Non-pressure chronic ulcer of other part of right foot with fat layer exposed; E11.622 Type 2 diabetes mellitus with other skin ulcer; L97.822 Non-pressure chronic ulcer of other part of left lower leg with fat layer exposed; E11.52 Type 2 diabetes mellitus with diabetic peripheral angiopathy with gangrene; I96 Gangrene, not elsewhere classified; I11.0 Hypertensive heart disease with heart failure; I25.110 Atherosclerotic heart disease of native coronary artery with unstable angina pectoris; I50.23 Acute on chronic systolic (congestive) heart failure; E78.5 Hyperlipidemia, unspecified; I70.248 Atherosclerosis of native arteries of left leg with ulceration of other part of lower leg; I48.0 Paroxysmal atrial fibrillation; F17.210 Nicotine dependence, cigarettes, uncomplicated; Z79.4 Long term (current) use of insulin; Z95.1 Presence of aortocoronary bypass graft; Z79.84 Long term (current) use of oral hypoglycemic drugs; Z79.899 Other long term (current) drug therapy; Y83.5 Amputation of limb(s) as the cause of abnormal reaction of the patient, or of later complication, without mention of misadventure at the time of the procedure | CPT/HCPCS: 15275; A6209; Q4133; A6207 ==

== ENCOUNTER → 2023-04-06 | Outpatient (CLI) | payer OTHER | END | disposition home or self-care (01) | LOC: WHH 08:00 | PROVIDERS: ATTEND Podiatrist Foot & Ankle Surgery | DX: T87.89 Other complications of amputation stump (principal); E11.621 Type 2 diabetes mellitus with foot ulcer; I70.245 Atherosclerosis of native arteries of left leg with ulceration of other part of foot; L97.522 Non-pressure chronic ulcer of other part of left foot with fat layer exposed; I70.235 Atherosclerosis of native arteries of right leg with ulceration of other part of foot; L97.512 Non-pressure chronic ulcer of other part of right foot with fat layer exposed; E11.52 Type 2 diabetes mellitus with diabetic peripheral angiopathy with gangrene; I96 Gangrene, not elsewhere classified; I11.0 Hypertensive heart disease with heart failure; I25.110 Atherosclerotic heart disease of native coronary artery with unstable angina pectoris; I50.23 Acute on chronic systolic (congestive) heart failure; E78.5 Hyperlipidemia, unspecified; I48.0 Paroxysmal atrial fibrillation; F17.210 Nicotine dependence, cigarettes, uncomplicated; Z79.4 Long term (current) use of insulin; Z95.1 Presence of aortocoronary bypass graft; Z79.84 Long term (current) use of oral hypoglycemic drugs; Z79.899 Other long term (current) drug therapy; Y83.5 Amputation of limb(s) as the cause of abnormal reaction of the patient, or of later complication, without mention of misadventure at the time of the procedure | CPT/HCPCS: G0463; A6209; A4450; L3260 ==

== ENCOUNTER → 2023-04-13 | Outpatient (CLI) | payer OTHER | END | disposition home or self-care (01) | LOC: WHH 07:59 | PROVIDERS: ATTEND Podiatrist Foot & Ankle Surgery | DX: T87.89 Other complications of amputation stump (principal); E11.621 Type 2 diabetes mellitus with foot ulcer; I70.245 Atherosclerosis of native arteries of left leg with ulceration of other part of foot; L97.522 Non-pressure chronic ulcer of other part of left foot with fat layer exposed; I70.235 Atherosclerosis of native arteries of right leg with ulceration of other part of foot; L97.512 Non-pressure chronic ulcer of other part of right foot with fat layer exposed; E11.52 Type 2 diabetes mellitus with diabetic peripheral angiopathy with gangrene; I96 Gangrene, not elsewhere classified; I11.0 Hypertensive heart disease with heart failure; I25.110 Atherosclerotic heart disease of native coronary artery with unstable angina pectoris; I50.23 Acute on chronic systolic (congestive) heart failure; E78.5 Hyperlipidemia, unspecified; I48.0 Paroxysmal atrial fibrillation; F17.210 Nicotine dependence, cigarettes, uncomplicated; Z79.4 Long term (current) use of insulin; Z95.1 Presence of aortocoronary bypass graft; Z79.84 Long term (current) use of oral hypoglycemic drugs; Z79.899 Other long term (current) drug therapy; Y83.5 Amputation of limb(s) as the cause of abnormal reaction of the patient, or of later complication, without mention of misadventure at the time of the procedure | CPT/HCPCS: G0463; A6209 ==

== ENCOUNTER → 2023-04-27 | Outpatient (CLI) | payer OTHER ==
[~2023-04-27] MED LIST changes: +LIDOCAINE HCL 4% LTA SOL 4 ML VIAL TP ONE
== END | disposition home or self-care (01) ==
LOC: WHH 07:42
PROVIDERS: ATTEND Podiatrist Foot & Ankle Surgery
DX: T87.89 Other complications of amputation stump (principal); E11.621 Type 2 diabetes mellitus with foot ulcer; I70.245 Atherosclerosis of native arteries of left leg with ulceration of other part of foot; L97.522 Non-pressure chronic ulcer of other part of left foot with fat layer exposed; I70.235 Atherosclerosis of native arteries of right leg with ulceration of other part of foot; L97.512 Non-pressure chronic ulcer of other part of right foot with fat layer exposed; E11.52 Type 2 diabetes mellitus with diabetic peripheral angiopathy with gangrene; I96 Gangrene, not elsewhere classified; I11.0 Hypertensive heart disease with heart failure; I25.110 Atherosclerotic heart disease of native coronary artery with unstable angina pectoris; I50.23 Acute on chronic systolic (congestive) heart failure; E78.5 Hyperlipidemia, unspecified; I48.0 Paroxysmal atrial fibrillation; F17.210 Nicotine dependence, cigarettes, uncomplicated; Z79.4 Long term (current) use of insulin; Z95.1 Presence of aortocoronary bypass graft; Z79.84 Long term (current) use of oral hypoglycemic drugs; Z79.899 Other long term (current) drug therapy; Y83.5 Amputation of limb(s) as the cause of abnormal reaction of the patient, or of later complication, without mention of misadventure at the time of the procedure
CPT/HCPCS: G0463; A6209

== ENCOUNTER → 2023-05-11 | Outpatient (CLI) | payer OTHER | END | disposition home or self-care (01) | LOC: WHH 08:00 | PROVIDERS: ATTEND Podiatrist Foot & Ankle Surgery | DX: T87.89 Other complications of amputation stump (principal); E11.621 Type 2 diabetes mellitus with foot ulcer; I70.245 Atherosclerosis of native arteries of left leg with ulceration of other part of foot; L97.522 Non-pressure chronic ulcer of other part of left foot with fat layer exposed; I70.235 Atherosclerosis of native arteries of right leg with ulceration of other part of foot; L97.512 Non-pressure chronic ulcer of other part of right foot with fat layer exposed; E11.52 Type 2 diabetes mellitus with diabetic peripheral angiopathy with gangrene; I96 Gangrene, not elsewhere classified; I11.0 Hypertensive heart disease with heart failure; I25.110 Atherosclerotic heart disease of native coronary artery with unstable angina pectoris; I50.23 Acute on chronic systolic (congestive) heart failure; E78.5 Hyperlipidemia, unspecified; I48.0 Paroxysmal atrial fibrillation; F17.210 Nicotine dependence, cigarettes, uncomplicated; Z95.1 Presence of aortocoronary bypass graft; Z79.4 Long term (current) use of insulin; Z79.84 Long term (current) use of oral hypoglycemic drugs; Z79.899 Other long term (current) drug therapy; Y83.5 Amputation of limb(s) as the cause of abnormal reaction of the patient, or of later complication, without mention of misadventure at the time of the procedure | CPT/HCPCS: G0463; A4649; A4450 ==

== ENCOUNTER → 2023-07-06 | Outpatient (CLI) | payer OTHER ==
[~2023-07-06] MED LIST changes: -LIDOCAINE HCL 4% LTA SOL 4 ML VIAL TP ONE; +SILVER NITRATE APPLICATOR 1 SWAB TP ONE
== END | disposition home or self-care (01) ==
LOC: WHH 08:57
PROVIDERS: ATTEND Podiatrist Foot & Ankle Surgery
DX: T87.89 Other complications of amputation stump (principal); E11.621 Type 2 diabetes mellitus with foot ulcer; I70.245 Atherosclerosis of native arteries of left leg with ulceration of other part of foot; L97.522 Non-pressure chronic ulcer of other part of left foot with fat layer exposed; I70.235 Atherosclerosis of native arteries of right leg with ulceration of other part of foot; L97.512 Non-pressure chronic ulcer of other part of right foot with fat layer exposed; E11.52 Type 2 diabetes mellitus with diabetic peripheral angiopathy with gangrene; I96 Gangrene, not elsewhere classified; I25.10 Atherosclerotic heart disease of native coronary artery without angina pectoris; I11.0 Hypertensive heart disease with heart failure; I50.23 Acute on chronic systolic (congestive) heart failure; E78.5 Hyperlipidemia, unspecified; I48.0 Paroxysmal atrial fibrillation; F17.210 Nicotine dependence, cigarettes, uncomplicated; Z95.1 Presence of aortocoronary bypass graft; Z79.4 Long term (current) use of insulin; Z79.84 Long term (current) use of oral hypoglycemic drugs; Z79.899 Other long term (current) drug therapy; Y83.5 Amputation of limb(s) as the cause of abnormal reaction of the patient, or of later complication, without mention of misadventure at the time of the procedure
CPT/HCPCS: 17250; A4649; A4450

== ENCOUNTER → 2023-08-03 | Outpatient (CLI) | payer OTHER ==
[~2023-08-03] MED LIST changes: -SILVER NITRATE APPLICATOR 1 SWAB TP ONE
== END | disposition home or self-care (01) ==
LOC: WHH 08:59
PROVIDERS: ATTEND Podiatrist Foot & Ankle Surgery
DX: T87.89 Other complications of amputation stump (principal); E11.621 Type 2 diabetes mellitus with foot ulcer; I70.245 Atherosclerosis of native arteries of left leg with ulceration of other part of foot; L97.522 Non-pressure chronic ulcer of other part of left foot with fat layer exposed; I70.235 Atherosclerosis of native arteries of right leg with ulceration of other part of foot; L97.512 Non-pressure chronic ulcer of other part of right foot with fat layer exposed; E11.52 Type 2 diabetes mellitus with diabetic peripheral angiopathy with gangrene; I96 Gangrene, not elsewhere classified; I25.10 Atherosclerotic heart disease of native coronary artery without angina pectoris; I11.0 Hypertensive heart disease with heart failure; I50.23 Acute on chronic systolic (congestive) heart failure; E78.5 Hyperlipidemia, unspecified; I48.0 Paroxysmal atrial fibrillation; F17.210 Nicotine dependence, cigarettes, uncomplicated; Z95.1 Presence of aortocoronary bypass graft; Z79.4 Long term (current) use of insulin; Z79.84 Long term (current) use of oral hypoglycemic drugs; Z79.899 Other long term (current) drug therapy; Y83.5 Amputation of limb(s) as the cause of abnormal reaction of the patient, or of later complication, without mention of misadventure at the time of the procedure
CPT/HCPCS: 11042; A4649

== ENCOUNTER → 2023-08-17 | Outpatient (CLI) | payer OTHER ==
[~2023-08-17] MED LIST changes: +LIDOCAINE HCL 4% LTA SOL 4 ML VIAL TP ONE; +SILVER NITRATE APPLICATOR 1 SWAB TP ONE
== END | disposition home or self-care (01) ==
LOC: WHH 07:52
PROVIDERS: ATTEND Podiatrist Foot & Ankle Surgery
DX: E11.621 Type 2 diabetes mellitus with foot ulcer (principal); I70.245 Atherosclerosis of native arteries of left leg with ulceration of other part of foot; L97.522 Non-pressure chronic ulcer of other part of left foot with fat layer exposed; I70.235 Atherosclerosis of native arteries of right leg with ulceration of other part of foot; L97.512 Non-pressure chronic ulcer of other part of right foot with fat layer exposed; E11.52 Type 2 diabetes mellitus with diabetic peripheral angiopathy with gangrene; I96 Gangrene, not elsewhere classified; I25.10 Atherosclerotic heart disease of native coronary artery without angina pectoris; I11.0 Hypertensive heart disease with heart failure; I50.23 Acute on chronic systolic (congestive) heart failure; E78.5 Hyperlipidemia, unspecified; I48.0 Paroxysmal atrial fibrillation; F17.210 Nicotine dependence, cigarettes, uncomplicated; Z95.1 Presence of aortocoronary bypass graft; Z79.4 Long term (current) use of insulin; Z79.84 Long term (current) use of oral hypoglycemic drugs; Z79.899 Other long term (current) drug therapy; Y83.5 Amputation of limb(s) as the cause of abnormal reaction of the patient, or of later complication, without mention of misadventure at the time of the procedure
CPT/HCPCS: 17250; A4649; A4450

== ENCOUNTER → 2023-09-07 | Outpatient (CLI) | payer OTHER ==
[~2023-09-07] MED LIST changes: -SILVER NITRATE APPLICATOR 1 SWAB TP ONE
== END | disposition home or self-care (01) ==
LOC: WHH 08:20
PROVIDERS: ATTEND Podiatrist Foot & Ankle Surgery
DX: E11.621 Type 2 diabetes mellitus with foot ulcer (principal); I70.245 Atherosclerosis of native arteries of left leg with ulceration of other part of foot; L97.522 Non-pressure chronic ulcer of other part of left foot with fat layer exposed; I70.235 Atherosclerosis of native arteries of right leg with ulceration of other part of foot; L97.512 Non-pressure chronic ulcer of other part of right foot with fat layer exposed; E11.52 Type 2 diabetes mellitus with diabetic peripheral angiopathy with gangrene; I96 Gangrene, not elsewhere classified; I25.10 Atherosclerotic heart disease of native coronary artery without angina pectoris; I11.0 Hypertensive heart disease with heart failure; I50.23 Acute on chronic systolic (congestive) heart failure; E78.5 Hyperlipidemia, unspecified; I48.0 Paroxysmal atrial fibrillation; F17.210 Nicotine dependence, cigarettes, uncomplicated; Z95.1 Presence of aortocoronary bypass graft; Z79.4 Long term (current) use of insulin; Z79.84 Long term (current) use of oral hypoglycemic drugs; Z79.899 Other long term (current) drug therapy
CPT/HCPCS: 11042; A4649; A4450

== ENCOUNTER → 2023-09-28 | Outpatient (CLI) | payer OTHER ==
[~2023-09-28] MED LIST changes: +SILVER NITRATE APPLICATOR 1 SWAB TP ONE
== END | disposition home or self-care (01) ==
LOC: WHH 08:18
PROVIDERS: ATTEND Podiatrist Foot & Ankle Surgery
DX: E11.621 Type 2 diabetes mellitus with foot ulcer (principal); I70.245 Atherosclerosis of native arteries of left leg with ulceration of other part of foot; L97.522 Non-pressure chronic ulcer of other part of left foot with fat layer exposed; I70.235 Atherosclerosis of native arteries of right leg with ulceration of other part of foot; L97.512 Non-pressure chronic ulcer of other part of right foot with fat layer exposed; E11.52 Type 2 diabetes mellitus with diabetic peripheral angiopathy with gangrene; I96 Gangrene, not elsewhere classified; I25.10 Atherosclerotic heart disease of native coronary artery without angina pectoris; I11.0 Hypertensive heart disease with heart failure; I50.23 Acute on chronic systolic (congestive) heart failure; E78.5 Hyperlipidemia, unspecified; I48.0 Paroxysmal atrial fibrillation; F17.210 Nicotine dependence, cigarettes, uncomplicated; Z95.1 Presence of aortocoronary bypass graft; Z79.4 Long term (current) use of insulin; Z79.84 Long term (current) use of oral hypoglycemic drugs; Z79.899 Other long term (current) drug therapy
CPT/HCPCS: 17250; A4649

== ENCOUNTER → 2023-10-19 | Outpatient (CLI) | payer OTHER | END | disposition home or self-care (01) | LOC: WHH 07:59 | PROVIDERS: ATTEND Podiatrist Foot & Ankle Surgery | DX: E11.621 Type 2 diabetes mellitus with foot ulcer (principal); I70.245 Atherosclerosis of native arteries of left leg with ulceration of other part of foot; L97.522 Non-pressure chronic ulcer of other part of left foot with fat layer exposed; I70.235 Atherosclerosis of native arteries of right leg with ulceration of other part of foot; L97.512 Non-pressure chronic ulcer of other part of right foot with fat layer exposed; E11.52 Type 2 diabetes mellitus with diabetic peripheral angiopathy with gangrene; I96 Gangrene, not elsewhere classified; I25.10 Atherosclerotic heart disease of native coronary artery without angina pectoris; I11.0 Hypertensive heart disease with heart failure; I50.23 Acute on chronic systolic (congestive) heart failure; E78.5 Hyperlipidemia, unspecified; I48.0 Paroxysmal atrial fibrillation; F17.210 Nicotine dependence, cigarettes, uncomplicated; Z95.1 Presence of aortocoronary bypass graft; Z79.4 Long term (current) use of insulin; Z79.84 Long term (current) use of oral hypoglycemic drugs; Z79.899 Other long term (current) drug therapy | CPT/HCPCS: 17250; A4649; A4450 ==

== ENCOUNTER → 2023-11-30 | Outpatient (CLI) | payer OTHER ==
[~2023-11-30] MED LIST changes: -SILVER NITRATE APPLICATOR 1 SWAB TP ONE
== END | disposition home or self-care (01) ==
LOC: WHH 08:27
PROVIDERS: ATTEND Podiatrist Foot & Ankle Surgery
DX: E11.621 Type 2 diabetes mellitus with foot ulcer (principal); I70.245 Atherosclerosis of native arteries of left leg with ulceration of other part of foot; L97.522 Non-pressure chronic ulcer of other part of left foot with fat layer exposed; I70.235 Atherosclerosis of native arteries of right leg with ulceration of other part of foot; L97.512 Non-pressure chronic ulcer of other part of right foot with fat layer exposed; E11.52 Type 2 diabetes mellitus with diabetic peripheral angiopathy with gangrene; I96 Gangrene, not elsewhere classified; I25.10 Atherosclerotic heart disease of native coronary artery without angina pectoris; I11.0 Hypertensive heart disease with heart failure; I50.23 Acute on chronic systolic (congestive) heart failure; E78.5 Hyperlipidemia, unspecified; I48.0 Paroxysmal atrial fibrillation; F17.210 Nicotine dependence, cigarettes, uncomplicated; Z95.1 Presence of aortocoronary bypass graft; Z79.4 Long term (current) use of insulin; Z79.84 Long term (current) use of oral hypoglycemic drugs; Z79.899 Other long term (current) drug therapy
CPT/HCPCS: 11042; A6209

== ENCOUNTER → 2023-12-14 | Outpatient (CLI) | payer OTHER ==
[~2023-12-14] MED LIST changes: -LIDOCAINE HCL 4% LTA SOL 4 ML VIAL TP ONE
== END | disposition home or self-care (01) ==
LOC: WHH 10:00
PROVIDERS: ATTEND Podiatrist Foot & Ankle Surgery
DX: T87.89 Other complications of amputation stump (principal); E11.621 Type 2 diabetes mellitus with foot ulcer; I70.245 Atherosclerosis of native arteries of left leg with ulceration of other part of foot; L97.521 Non-pressure chronic ulcer of other part of left foot limited to breakdown of skin; I70.235 Atherosclerosis of native arteries of right leg with ulceration of other part of foot; L97.512 Non-pressure chronic ulcer of other part of right foot with fat layer exposed; E11.52 Type 2 diabetes mellitus with diabetic peripheral angiopathy with gangrene; I96 Gangrene, not elsewhere classified; I11.0 Hypertensive heart disease with heart failure; I50.23 Acute on chronic systolic (congestive) heart failure; E78.5 Hyperlipidemia, unspecified; I48.0 Paroxysmal atrial fibrillation; I25.10 Atherosclerotic heart disease of native coronary artery without angina pectoris; F17.210 Nicotine dependence, cigarettes, uncomplicated; Z95.1 Presence of aortocoronary bypass graft; Z79.4 Long term (current) use of insulin; Z79.84 Long term (current) use of oral hypoglycemic drugs; Z79.899 Other long term (current) drug therapy; Y83.5 Amputation of limb(s) as the cause of abnormal reaction of the patient, or of later complication, without mention of misadventure at the time of the procedure
CPT/HCPCS: G0463; A6209; A4450

== ENCOUNTER → 2023-12-28 | Outpatient (CLI) | payer OTHER ==
[~2023-12-28] MED LIST changes: +LIDOCAINE HCL 4% LTA SOL 4 ML VIAL TP ONE
== END | disposition home or self-care (01) ==
LOC: WHH 09:55
PROVIDERS: ATTEND Podiatrist Foot & Ankle Surgery
DX: E11.621 Type 2 diabetes mellitus with foot ulcer (principal); I70.245 Atherosclerosis of native arteries of left leg with ulceration of other part of foot; L97.521 Non-pressure chronic ulcer of other part of left foot limited to breakdown of skin; I70.235 Atherosclerosis of native arteries of right leg with ulceration of other part of foot; L97.512 Non-pressure chronic ulcer of other part of right foot with fat layer exposed; E11.52 Type 2 diabetes mellitus with diabetic peripheral angiopathy with gangrene; I96 Gangrene, not elsewhere classified; I11.0 Hypertensive heart disease with heart failure; I50.23 Acute on chronic systolic (congestive) heart failure; E78.5 Hyperlipidemia, unspecified; I48.0 Paroxysmal atrial fibrillation; I25.10 Atherosclerotic heart disease of native coronary artery without angina pectoris; F17.210 Nicotine dependence, cigarettes, uncomplicated; Z95.1 Presence of aortocoronary bypass graft; Z79.4 Long term (current) use of insulin; Z89.432 Acquired absence of left foot; Z79.84 Long term (current) use of oral hypoglycemic drugs; Z79.899 Other long term (current) drug therapy; Y83.5 Amputation of limb(s) as the cause of abnormal reaction of the patient, or of later complication, without mention of misadventure at the time of the procedure
CPT/HCPCS: G0463; A6209

== ENCOUNTER → 2024-01-11 | Outpatient (CLI) | payer OTHER ==
[~2024-01-11] MED LIST changes: -LIDOCAINE HCL 4% LTA SOL 4 ML VIAL TP ONE
== END | disposition home or self-care (01) ==
LOC: WHH 09:14
PROVIDERS: ATTEND Podiatrist Foot & Ankle Surgery
DX: E11.621 Type 2 diabetes mellitus with foot ulcer (principal); L97.512 Non-pressure chronic ulcer of other part of right foot with fat layer exposed; I70.245 Atherosclerosis of native arteries of left leg with ulceration of other part of foot; L97.521 Non-pressure chronic ulcer of other part of left foot limited to breakdown of skin; I70.235 Atherosclerosis of native arteries of right leg with ulceration of other part of foot; E11.52 Type 2 diabetes mellitus with diabetic peripheral angiopathy with gangrene; I96 Gangrene, not elsewhere classified; I11.0 Hypertensive heart disease with heart failure; I50.23 Acute on chronic systolic (congestive) heart failure; E78.5 Hyperlipidemia, unspecified; I48.0 Paroxysmal atrial fibrillation; I25.10 Atherosclerotic heart disease of native coronary artery without angina pectoris; F17.210 Nicotine dependence, cigarettes, uncomplicated; Z95.1 Presence of aortocoronary bypass graft; Z79.4 Long term (current) use of insulin; Z89.432 Acquired absence of left foot; Z79.899 Other long term (current) drug therapy
CPT/HCPCS: 11042; A6209; A4450

== ENCOUNTER → 2024-01-25 | Outpatient (CLI) | payer OTHER | END | disposition home or self-care (01) | LOC: WHH 09:07 | PROVIDERS: ATTEND Podiatrist Foot & Ankle Surgery | DX: E11.621 Type 2 diabetes mellitus with foot ulcer (principal); L97.512 Non-pressure chronic ulcer of other part of right foot with fat layer exposed; I70.245 Atherosclerosis of native arteries of left leg with ulceration of other part of foot; L97.521 Non-pressure chronic ulcer of other part of left foot limited to breakdown of skin; I70.235 Atherosclerosis of native arteries of right leg with ulceration of other part of foot; E11.52 Type 2 diabetes mellitus with diabetic peripheral angiopathy with gangrene; I96 Gangrene, not elsewhere classified; I11.0 Hypertensive heart disease with heart failure; I50.23 Acute on chronic systolic (congestive) heart failure; E78.5 Hyperlipidemia, unspecified; I48.0 Paroxysmal atrial fibrillation; I25.10 Atherosclerotic heart disease of native coronary artery without angina pectoris; F17.210 Nicotine dependence, cigarettes, uncomplicated; Z95.1 Presence of aortocoronary bypass graft; Z79.4 Long term (current) use of insulin; Z89.432 Acquired absence of left foot; Z79.899 Other long term (current) drug therapy | CPT/HCPCS: 11042; A6209 ==

== ENCOUNTER → 2024-02-08 | Outpatient (CLI) | payer OTHER | END | disposition home or self-care (01) | LOC: WHH 08:32 | PROVIDERS: ATTEND Podiatrist Foot & Ankle Surgery | DX: E11.621 Type 2 diabetes mellitus with foot ulcer (principal); L97.512 Non-pressure chronic ulcer of other part of right foot with fat layer exposed; I70.245 Atherosclerosis of native arteries of left leg with ulceration of other part of foot; L97.521 Non-pressure chronic ulcer of other part of left foot limited to breakdown of skin; I70.235 Atherosclerosis of native arteries of right leg with ulceration of other part of foot; E11.52 Type 2 diabetes mellitus with diabetic peripheral angiopathy with gangrene; I96 Gangrene, not elsewhere classified; I11.0 Hypertensive heart disease with heart failure; I50.23 Acute on chronic systolic (congestive) heart failure; E78.5 Hyperlipidemia, unspecified; I48.0 Paroxysmal atrial fibrillation; I25.10 Atherosclerotic heart disease of native coronary artery without angina pectoris; Z95.1 Presence of aortocoronary bypass graft; Z79.4 Long term (current) use of insulin; Z89.432 Acquired absence of left foot; Z79.899 Other long term (current) drug therapy | CPT/HCPCS: 11042; A6209; A4450; A6260 ==

== ENCOUNTER → 2024-02-22 | Outpatient (CLI) | payer OTHER ==
[~2024-02-22] MED LIST changes: +LIDOCAINE HCL 4% LTA SOL 4 ML VIAL TP ONE
== END | disposition home or self-care (01) ==
LOC: WHH 09:22
PROVIDERS: ATTEND Podiatrist Foot & Ankle Surgery
DX: E11.621 Type 2 diabetes mellitus with foot ulcer (principal); L97.512 Non-pressure chronic ulcer of other part of right foot with fat layer exposed; I70.245 Atherosclerosis of native arteries of left leg with ulceration of other part of foot; L97.521 Non-pressure chronic ulcer of other part of left foot limited to breakdown of skin; I70.235 Atherosclerosis of native arteries of right leg with ulceration of other part of foot; E11.52 Type 2 diabetes mellitus with diabetic peripheral angiopathy with gangrene; I96 Gangrene, not elsewhere classified; I11.0 Hypertensive heart disease with heart failure; I50.23 Acute on chronic systolic (congestive) heart failure; E78.5 Hyperlipidemia, unspecified; I48.0 Paroxysmal atrial fibrillation; I25.10 Atherosclerotic heart disease of native coronary artery without angina pectoris; Z95.1 Presence of aortocoronary bypass graft; Z79.4 Long term (current) use of insulin; Z89.432 Acquired absence of left foot; Z79.899 Other long term (current) drug therapy
CPT/HCPCS: 97597; A6209

== ENCOUNTER → 2024-03-07 | Outpatient (CLI) | payer OTHER ==
[~2024-03-07] MED LIST changes: -LIDOCAINE HCL 4% LTA SOL 4 ML VIAL TP ONE
== END | disposition home or self-care (01) ==
LOC: WHH 09:48
PROVIDERS: ATTEND Podiatrist Foot & Ankle Surgery
DX: E11.621 Type 2 diabetes mellitus with foot ulcer (principal); L97.512 Non-pressure chronic ulcer of other part of right foot with fat layer exposed; I70.245 Atherosclerosis of native arteries of left leg with ulceration of other part of foot; L97.521 Non-pressure chronic ulcer of other part of left foot limited to breakdown of skin; I70.235 Atherosclerosis of native arteries of right leg with ulceration of other part of foot; E11.52 Type 2 diabetes mellitus with diabetic peripheral angiopathy with gangrene; I96 Gangrene, not elsewhere classified; I11.0 Hypertensive heart disease with heart failure; I50.23 Acute on chronic systolic (congestive) heart failure; E78.5 Hyperlipidemia, unspecified; I48.0 Paroxysmal atrial fibrillation; I25.10 Atherosclerotic heart disease of native coronary artery without angina pectoris; Z95.1 Presence of aortocoronary bypass graft; Z79.4 Long term (current) use of insulin; Z89.432 Acquired absence of left foot; Z79.899 Other long term (current) drug therapy
CPT/HCPCS: 17250; A6209; A4450

== ENCOUNTER → 2024-03-21 | Outpatient (CLI) | payer OTHER ==
[~2024-03-21] MED LIST changes: +LIDOCAINE HCL 4% LTA SOL 4 ML VIAL TP ONE
== END | disposition home or self-care (01) ==
LOC: WHH 10:07
PROVIDERS: ATTEND Podiatrist Foot & Ankle Surgery
DX: E11.621 Type 2 diabetes mellitus with foot ulcer (principal); I70.235 Atherosclerosis of native arteries of right leg with ulceration of other part of foot; L97.512 Non-pressure chronic ulcer of other part of right foot with fat layer exposed; I70.245 Atherosclerosis of native arteries of left leg with ulceration of other part of foot; L97.521 Non-pressure chronic ulcer of other part of left foot limited to breakdown of skin; E11.52 Type 2 diabetes mellitus with diabetic peripheral angiopathy with gangrene; I96 Gangrene, not elsewhere classified; I11.0 Hypertensive heart disease with heart failure; I50.23 Acute on chronic systolic (congestive) heart failure; E78.5 Hyperlipidemia, unspecified; I25.110 Atherosclerotic heart disease of native coronary artery with unstable angina pectoris; I48.0 Paroxysmal atrial fibrillation; Z95.1 Presence of aortocoronary bypass graft; Z79.4 Long term (current) use of insulin; Z89.432 Acquired absence of left foot; Z79.899 Other long term (current) drug therapy
CPT/HCPCS: 97597; A6209

== ENCOUNTER → 2024-04-04 | Outpatient (CLI) | payer OTHER ==
[~2024-04-04] MED LIST changes: -LIDOCAINE HCL 4% LTA SOL 4 ML VIAL TP ONE
== END | disposition home or self-care (01) ==
LOC: WHH 09:38
PROVIDERS: ATTEND Podiatrist Foot & Ankle Surgery
DX: E11.621 Type 2 diabetes mellitus with foot ulcer (principal); I70.235 Atherosclerosis of native arteries of right leg with ulceration of other part of foot; L97.512 Non-pressure chronic ulcer of other part of right foot with fat layer exposed; I70.245 Atherosclerosis of native arteries of left leg with ulceration of other part of foot; L97.521 Non-pressure chronic ulcer of other part of left foot limited to breakdown of skin; E11.52 Type 2 diabetes mellitus with diabetic peripheral angiopathy with gangrene; I96 Gangrene, not elsewhere classified; I11.0 Hypertensive heart disease with heart failure; I50.23 Acute on chronic systolic (congestive) heart failure; E78.5 Hyperlipidemia, unspecified; I25.110 Atherosclerotic heart disease of native coronary artery with unstable angina pectoris; I48.0 Paroxysmal atrial fibrillation; Z95.1 Presence of aortocoronary bypass graft; Z79.4 Long term (current) use of insulin; Z89.432 Acquired absence of left foot; Z79.899 Other long term (current) drug therapy
CPT/HCPCS: 17250; A6209

== ENCOUNTER → 2024-04-18 | Outpatient (CLI) | payer OTHER ==
[~2024-04-18] MED LIST changes: +LIDOCAINE HCL 4% LTA SOL 4 ML VIAL TP ONE; +SILVER NITRATE APPLICATOR 1 SWAB TP ONE
== END | disposition home or self-care (01) ==
LOC: WHH 09:44
PROVIDERS: ATTEND Podiatrist Foot & Ankle Surgery
DX: E11.621 Type 2 diabetes mellitus with foot ulcer (principal); I70.235 Atherosclerosis of native arteries of right leg with ulceration of other part of foot; L97.512 Non-pressure chronic ulcer of other part of right foot with fat layer exposed; I70.245 Atherosclerosis of native arteries of left leg with ulceration of other part of foot; L97.521 Non-pressure chronic ulcer of other part of left foot limited to breakdown of skin; E11.52 Type 2 diabetes mellitus with diabetic peripheral angiopathy with gangrene; I96 Gangrene, not elsewhere classified; I11.0 Hypertensive heart disease with heart failure; I50.23 Acute on chronic systolic (congestive) heart failure; E78.5 Hyperlipidemia, unspecified; I25.110 Atherosclerotic heart disease of native coronary artery with unstable angina pectoris; I48.0 Paroxysmal atrial fibrillation; Z95.1 Presence of aortocoronary bypass graft; Z79.4 Long term (current) use of insulin; Z89.432 Acquired absence of left foot; Z79.899 Other long term (current) drug therapy
CPT/HCPCS: 17250; A6209; A4450; A6260

== ENCOUNTER → 2024-05-02 | Outpatient (CLI) | payer OTHER ==
[~2024-05-02] MED LIST changes: -SILVER NITRATE APPLICATOR 1 SWAB TP ONE
== END | disposition home or self-care (01) ==
LOC: WHH 09:22
PROVIDERS: ATTEND Podiatrist Foot & Ankle Surgery
DX: E11.621 Type 2 diabetes mellitus with foot ulcer (principal); I70.235 Atherosclerosis of native arteries of right leg with ulceration of other part of foot; L97.512 Non-pressure chronic ulcer of other part of right foot with fat layer exposed; I70.245 Atherosclerosis of native arteries of left leg with ulceration of other part of foot; L97.521 Non-pressure chronic ulcer of other part of left foot limited to breakdown of skin; E11.52 Type 2 diabetes mellitus with diabetic peripheral angiopathy with gangrene; I96 Gangrene, not elsewhere classified; I11.0 Hypertensive heart disease with heart failure; I50.23 Acute on chronic systolic (congestive) heart failure; E78.5 Hyperlipidemia, unspecified; I25.110 Atherosclerotic heart disease of native coronary artery with unstable angina pectoris; I48.0 Paroxysmal atrial fibrillation; Z95.1 Presence of aortocoronary bypass graft; Z79.4 Long term (current) use of insulin; Z89.432 Acquired absence of left foot; Z79.899 Other long term (current) drug therapy
CPT/HCPCS: 97597; A6209; A6260

== ENCOUNTER → 2024-05-16 | Outpatient (CLI) | payer OTHER ==
[~2024-05-16] MED LIST changes: -LIDOCAINE HCL 4% LTA SOL 4 ML VIAL TP ONE
== END | disposition home or self-care (01) ==
LOC: WHH 09:38
PROVIDERS: ATTEND Podiatrist Foot & Ankle Surgery
DX: T87.89 Other complications of amputation stump (principal); E11.621 Type 2 diabetes mellitus with foot ulcer; I70.235 Atherosclerosis of native arteries of right leg with ulceration of other part of foot; L97.512 Non-pressure chronic ulcer of other part of right foot with fat layer exposed; I70.245 Atherosclerosis of native arteries of left leg with ulceration of other part of foot; L97.521 Non-pressure chronic ulcer of other part of left foot limited to breakdown of skin; E11.52 Type 2 diabetes mellitus with diabetic peripheral angiopathy with gangrene; I96 Gangrene, not elsewhere classified; I11.0 Hypertensive heart disease with heart failure; I50.23 Acute on chronic systolic (congestive) heart failure; E78.5 Hyperlipidemia, unspecified; I25.110 Atherosclerotic heart disease of native coronary artery with unstable angina pectoris; I48.0 Paroxysmal atrial fibrillation; Z95.1 Presence of aortocoronary bypass graft; Z79.4 Long term (current) use of insulin; Z79.899 Other long term (current) drug therapy; Y83.5 Amputation of limb(s) as the cause of abnormal reaction of the patient, or of later complication, without mention of misadventure at the time of the procedure
CPT/HCPCS: G0463

== ENCOUNTER → 2024-09-19 | Outpatient (CLI) | payer OTHER ==
[~2024-09-19] MED LIST changes: +LIDOCAINE HCL 4% LTA SOL 4 ML VIAL TP ONE
== END | disposition home or self-care (01) ==
LOC: WHH 09:35
PROVIDERS: ATTEND Podiatrist Foot & Ankle Surgery
DX: T87.89 Other complications of amputation stump (principal); E11.621 Type 2 diabetes mellitus with foot ulcer; I70.235 Atherosclerosis of native arteries of right leg with ulceration of other part of foot; L97.512 Non-pressure chronic ulcer of other part of right foot with fat layer exposed; I70.245 Atherosclerosis of native arteries of left leg with ulceration of other part of foot; L97.521 Non-pressure chronic ulcer of other part of left foot limited to breakdown of skin; E11.52 Type 2 diabetes mellitus with diabetic peripheral angiopathy with gangrene; I96 Gangrene, not elsewhere classified; E11.39 Type 2 diabetes mellitus with other diabetic ophthalmic complication; H40.9 Unspecified glaucoma; I11.0 Hypertensive heart disease with heart failure; I50.23 Acute on chronic systolic (congestive) heart failure; E78.5 Hyperlipidemia, unspecified; I25.110 Atherosclerotic heart disease of native coronary artery with unstable angina pectoris; I48.0 Paroxysmal atrial fibrillation; E55.9 Vitamin D deficiency, unspecified; F32.A Depression, unspecified; F17.210 Nicotine dependence, cigarettes, uncomplicated; Z95.1 Presence of aortocoronary bypass graft; Z79.4 Long term (current) use of insulin; Z79.899 Other long term (current) drug therapy; Y83.5 Amputation of limb(s) as the cause of abnormal reaction of the patient, or of later complication, without mention of misadventure at the time of the procedure
CPT/HCPCS: G0463; A6022; A4450

== ENCOUNTER → 2024-10-03 | Outpatient (CLI) | payer OTHER | END | disposition home or self-care (01) | LOC: WHH 09:09 | PROVIDERS: ATTEND Podiatrist Foot & Ankle Surgery | DX: E11.621 Type 2 diabetes mellitus with foot ulcer (principal); I70.235 Atherosclerosis of native arteries of right leg with ulceration of other part of foot; L97.512 Non-pressure chronic ulcer of other part of right foot with fat layer exposed; T87.89 Other complications of amputation stump; I70.245 Atherosclerosis of native arteries of left leg with ulceration of other part of foot; L97.521 Non-pressure chronic ulcer of other part of left foot limited to breakdown of skin; E11.52 Type 2 diabetes mellitus with diabetic peripheral angiopathy with gangrene; I96 Gangrene, not elsewhere classified; E11.39 Type 2 diabetes mellitus with other diabetic ophthalmic complication; H40.9 Unspecified glaucoma; I11.0 Hypertensive heart disease with heart failure; I50.23 Acute on chronic systolic (congestive) heart failure; E78.5 Hyperlipidemia, unspecified; I25.110 Atherosclerotic heart disease of native coronary artery with unstable angina pectoris; I48.0 Paroxysmal atrial fibrillation; E55.9 Vitamin D deficiency, unspecified; F32.A Depression, unspecified; F17.210 Nicotine dependence, cigarettes, uncomplicated; Z95.1 Presence of aortocoronary bypass graft; Z79.4 Long term (current) use of insulin; Z79.899 Other long term (current) drug therapy; Y83.5 Amputation of limb(s) as the cause of abnormal reaction of the patient, or of later complication, without mention of misadventure at the time of the procedure | CPT/HCPCS: G0463; A6022 ==

== ENCOUNTER → 2024-10-17 | Outpatient (CLI) | payer OTHER ==
[~2024-10-17] MED LIST changes: -LIDOCAINE HCL 4% LTA SOL 4 ML VIAL TP ONE
== END | disposition home or self-care (01) ==
LOC: WHH 09:24
PROVIDERS: ATTEND Podiatrist Foot & Ankle Surgery
DX: E11.621 Type 2 diabetes mellitus with foot ulcer (principal); I70.235 Atherosclerosis of native arteries of right leg with ulceration of other part of foot; L97.512 Non-pressure chronic ulcer of other part of right foot with fat layer exposed; I70.245 Atherosclerosis of native arteries of left leg with ulceration of other part of foot; L97.521 Non-pressure chronic ulcer of other part of left foot limited to breakdown of skin; T87.89 Other complications of amputation stump; E11.52 Type 2 diabetes mellitus with diabetic peripheral angiopathy with gangrene; I96 Gangrene, not elsewhere classified; E11.39 Type 2 diabetes mellitus with other diabetic ophthalmic complication; H40.9 Unspecified glaucoma; I11.0 Hypertensive heart disease with heart failure; I50.23 Acute on chronic systolic (congestive) heart failure; E78.5 Hyperlipidemia, unspecified; I25.110 Atherosclerotic heart disease of native coronary artery with unstable angina pectoris; I48.0 Paroxysmal atrial fibrillation; E55.9 Vitamin D deficiency, unspecified; F32.A Depression, unspecified; F17.210 Nicotine dependence, cigarettes, uncomplicated; Z95.1 Presence of aortocoronary bypass graft; Z79.4 Long term (current) use of insulin; Z79.899 Other long term (current) drug therapy; Y83.5 Amputation of limb(s) as the cause of abnormal reaction of the patient, or of later complication, without mention of misadventure at the time of the procedure
CPT/HCPCS: G0463; A6022; A4450

== ENCOUNTER → 2024-10-31 | Outpatient (CLI) | payer OTHER | END | disposition home or self-care (01) | LOC: WHH 09:24 | PROVIDERS: ATTEND Podiatrist Foot & Ankle Surgery | DX: E11.621 Type 2 diabetes mellitus with foot ulcer (principal); I70.235 Atherosclerosis of native arteries of right leg with ulceration of other part of foot; L97.512 Non-pressure chronic ulcer of other part of right foot with fat layer exposed; I70.245 Atherosclerosis of native arteries of left leg with ulceration of other part of foot; L97.521 Non-pressure chronic ulcer of other part of left foot limited to breakdown of skin; T87.89 Other complications of amputation stump; E11.52 Type 2 diabetes mellitus with diabetic peripheral angiopathy with gangrene; I96 Gangrene, not elsewhere classified; E11.39 Type 2 diabetes mellitus with other diabetic ophthalmic complication; H40.9 Unspecified glaucoma; I11.0 Hypertensive heart disease with heart failure; I50.23 Acute on chronic systolic (congestive) heart failure; E78.5 Hyperlipidemia, unspecified; I25.110 Atherosclerotic heart disease of native coronary artery with unstable angina pectoris; I48.0 Paroxysmal atrial fibrillation; E55.9 Vitamin D deficiency, unspecified; F32.A Depression, unspecified; F17.210 Nicotine dependence, cigarettes, uncomplicated; Z95.1 Presence of aortocoronary bypass graft; Z79.4 Long term (current) use of insulin; Z79.899 Other long term (current) drug therapy; Y83.5 Amputation of limb(s) as the cause of abnormal reaction of the patient, or of later complication, without mention of misadventure at the time of the procedure | CPT/HCPCS: G0463; A6022 ==

== ENCOUNTER 2024-11-21 10:06 | Outpatient (CLI) | payer OTHER | END 2024-11-21 15:51 | disposition home or self-care (01) | LOC: WHH 10:06 | PROVIDERS: ATTEND Podiatrist Foot & Ankle Surgery | DX: E11.621 Type 2 diabetes mellitus with foot ulcer (principal); I70.235 Atherosclerosis of native arteries of right leg with ulceration of other part of foot; L97.512 Non-pressure chronic ulcer of other part of right foot with fat layer exposed; I70.245 Atherosclerosis of native arteries of left leg with ulceration of other part of foot; L97.521 Non-pressure chronic ulcer of other part of left foot limited to breakdown of skin; T87.81 Dehiscence of amputation stump; E11.52 Type 2 diabetes mellitus with diabetic peripheral angiopathy with gangrene; I96 Gangrene, not elsewhere classified; E11.39 Type 2 diabetes mellitus with other diabetic ophthalmic complication; H40.9 Unspecified glaucoma; I11.0 Hypertensive heart disease with heart failure; I50.23 Acute on chronic systolic (congestive) heart failure; E78.5 Hyperlipidemia, unspecified; I25.110 Atherosclerotic heart disease of native coronary artery with unstable angina pectoris; I48.0 Paroxysmal atrial fibrillation; E55.9 Vitamin D deficiency, unspecified; F32.A Depression, unspecified; F17.210 Nicotine dependence, cigarettes, uncomplicated; Z95.1 Presence of aortocoronary bypass graft; Z79.4 Long term (current) use of insulin; Z79.899 Other long term (current) drug therapy; Y83.5 Amputation of limb(s) as the cause of abnormal reaction of the patient, or of later complication, without mention of misadventure at the time of the procedure | CPT/HCPCS: G0463; A6250 ==